=== PATIENT | male | born 1945 | race Caucasian/White ===

== ENCOUNTER 2016-12-29 10:49 | Inpatient (IN) | payer OTHER ==
[~2016-12-29] VITALS: Ht 172.7 cm; Wt 92.5 kg
--- NOTE | ~2016-12-29 | PR ---
[place], [place] PROGRESS NOTE [id number] UNIT #: [id number] ROOM: 511 DOCTOR: BELGICA ORTEGA MD BIRTHDATE: [birth year] DOS: 12/30/2016 PULMONARY FOLLOWUP NOTE SUBJECTIVE: The patient had successful vertebroplasty performed for the patient, T10 vertebral bone yesterday. ____ has been noted decreased. There were symptoms of coughing, sputum expectoration, shortness of breath were also noted improved. OBJECTIVE: VITAL SIGNS: Showed normal temperature, respiratory rate 20, heart rate 70, blood pressure 116/70. The pulse oxygen saturation on 3 liters nasal cannula was 96% saturation recorded. HEENT: Examination shows no acute change. NECK: Supple. CARDIOVASCULAR SYSTEM: S1, S2 is audible. LUNGS: Noted without any wheezing or crackles at the present time. Breath sounds noted moderately decreased bilaterally. ABDOMEN: Soft and nontender. LABORATORY DATA: CBC today; WBC count 13.6, hemoglobin of 13.4, hematocrit 43.7, platelet count 487,000. IMPRESSION: 1. Status post T10 vertebroplasty for acute compression fracture of the patient was noted. 2. 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 3. Chronic hypoxic respiratory failure. 4. Bronchial asthma. PLAN OF TREATMENT: Continuation of the current plan of management at this time. Continue other therapy, plan and management as in progress. Usual care. All other supportive plan of management at this time. The patient could be considered for home discharge for this patient whenever it is necessary from Pulmonary standpoint. The patient will keep his previous outpatient followup appointment. Other usual plan of management. [place], [place] PROGRESS NOTE NAME: MARY MACIAS UNIT #: [id number] ROOM: 511 DOCTOR: BELGICA ORTEGA MD BIRTHDATE: [birth year] BELGICA ZUNIGA MD CM:PNTRANS [id number] BELGICA MASON MD 01/01/17 2227 interface
--- NOTE | ~2016-12-29 | CON ---
[place], [place] REPORT OF CONSULTATION NAME: MARY MACIAS [facility] #: [id number] UNIT #: [id number] ROOM: 511 DOCTOR: EFRAIN MASON MDBELGICA BIRTHDATE: [birth year] DOS: 12/30/2016 REASON FOR CONSULTATION: Assess the patient for the chest pain with recurrent compression fracture of the spine and shortness of breath. HISTORY OF PRESENT ILLNESS: This is a 71-year-old white male known to me with past history of chronic long-term prednisone use of 50 mg daily. The patient has been known with history of uncomplicated moderate persistent bronchial asthma as well as progressive massive pulmonary fibrosis related to silicosis of the lung. He has been noted in his usual state of health. The patient stated that he has developed shortness of breath after trying to get off the chair when he felt excruciating pain in the back. The pain was described to be radiating to the front, moderate to severe in intensity and sharp at times. Later on, pain for this patient noted as dull. The pain has been noted progressive for the patient. He came in to the Emergency Room for further assessment. The patient has been assessed and underwent CT scan of the thoracic spine, which was compression fracture. Other than the thoracic spine no other abnormalities. The patient denies any symptoms of sputum expectoration. He has been noted mild cough without any changes from previously. He denies any symptoms of active wheezing. REVIEW OF SYSTEMS: CONSTITUTIONAL: Fatigue and tiredness noted without symptoms of fever or chills. EYES: Denies any burning, redness, or tenderness. EAR, NOSE, THROAT: Denies sore throat, hoarseness, otalgia, postnasal drainage. CARDIOVASCULAR: Denies anginal pain, edema or pain of the lower extremities. GASTROINTESTINAL: Dysphagia, nausea, vomiting, diarrhea, abdominal pain, hematemesis, melena. History of chronic obesity for the patient. GENITOURINARY: The patient denies any symptoms of dysuria, suprapubic pain, or hematuria. SKIN: Bruising of the skin was noted intermittently related to the use of the prednisone, which is a chronic finding without any abnormal lesions or rashes. MUSCULOSKELETAL: Denies acute joint pain, redness, or tenderness. CENTRAL NERVOUS SYSTEM: Denies dizziness, headache, diplopia, syncopal episodes or focal neurologic deficit. Remaining systems were reviewed with the patient, they were noted all negative. PAST MEDICAL HISTORY: 1. 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 2. History of gastroesophageal reflux. 3. Obesity. 4. Type 2 diabetes mellitus. 5. Essential hypertension. 6. Congestive heart failure, diastolic dysfunction. 7. History of coronary artery disease. 8. Uncomplicated bpjvkhio-gz-hdvbnz persistent bronchial asthma. 9. Chronic hypoxic respiratory failure as well. 10. Chronic prednisone dependency. [place], [place] REPORT OF CONSULTATION NAME: MARY MACISA UNIT #: [id number] ROOM: 511 DOCTOR: EFRAIN MASON MD,BELGICA BIRTHDATE: [birth year] PAST SURGICAL HISTORY: 1. Noted as a fusion of the neck. 2. Carpel tunnel surgery. 3. Bilateral cataract extraction. 4. VATS procedure, patient has had thoracotomy of the left lung in 2008 in [facility], [place]. SOCIAL HISTORY: The patient has been noted with past tobacco use at the age of [age] years old, 1 pack of cigarettes per day that was used for the patient only for about 2-3 years. He is . He lives at home. 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 He does have one child. FAMILY HISTORY: The patient's father at 71 years old from complication of stroke. The mother at age of 6969 years old from complication of liver disease. MEDICATIONS: The current administered medications noted use of Aldactone, Lovenox for DVT prophylaxis, Protonix, metoprolol tartrate, Dulera, Lipitor, Demadex, potassium chloride, Neurontin, Xanax, prednisone 15 mg daily and other p.r.n. medications. DRUG ALLERGIES: The patient was noted as no known drug allergies. PHYSICAL EXAMINATION: GENERAL: A 71-year-old white male who has been noted currently awake and alert without any distress. VITAL SIGNS: Height of 5 feet 8 inches, weight of 204 pounds, BMI 31. Vital signs show a normal temperature, respiratory rate 18-20, heart rate of 72-65, blood pressure 140/84-128/73. Pulse oxygen saturation of the patient recorded on 4 liters nasal cannula 94% saturation. HEENT: Finding of chronic prednisone use with pierre facies. Head was atraumatic. Eyes nonicterus. Oral mucosa was moist. NECK: Supple. CARDIOVASCULAR: S1, S2 audible. LUNGS: The patient was noted with pknz-nf-vhtkefut decreased breath sounds without any wheezing, questionable crackles present at the lungs bilaterally. ABDOMEN: Soft, nontender. EXTREMITIES: Shows chronic obesity. LABORATORY DATA: CBC of the patient of 12/29/2016, WBC count 18.5, hemoglobin 13.3, hematocrit 41.9, platelet count of 507,000. The PT/INR was noted normal on 12/29/2016. CMP: Glucose 127, BUN and creatinine was normal. Glucose 146. PT/PTT repeated again this morning was normal. CMP of the patient, normal. BUN and creatinine again noted this morning. CBC: WBC count 14.5, hemoglobin 12.2, hematocrit 39.0, platelet count was 470,000. IMPRESSION: 1. The patient who has been currently noted with past history of chronic [place], [place] REPORT OF CONSULTATION NAME: MARY MACIAS UNIT #: [id number] ROOM: [facility] DOCTOR: EFRAIN MASON MD,[facility] BIRTHDATE: [birth year] hypoxic respiratory failure with advanced disease related to progressive pulmonary fibrosis related to silicosis, which has been proven with the biopsy as well. 2. Chronic prednisone use. 3. Compression fracture was described of the thoracic spine involving in this patient at the level of T10 was described most likely the reason of current pain. The compression fracture noted atraumatic for this patient related to chronic prednisone dependency. 4. The patient with history of uncomplicated moderate persistent bronchial asthma as well. 5. History of general anxiety disorder, gastroesophageal reflux, history of congestive heart failure with the diastolic dysfunction. 6. Bone mineral weight loss of the patient related to the corticosteroids, which has been treated with the medications. Further medical management of bone loss on the patient with intravenous infusion of medications every 6 months as well as use of calcium and vitamin D supplements. PLAN OF TREATMENT: Continue the pain management. The patient has been scheduled for the MRI for the patient to be done today for further assessment and possible consideration of kyphoplasty. In the meantime, other previous treatment to be continued as well. The patient is in progress. Other supportive therapy, plan and management as well. Usual treatments. All other care. Further change in treatment for the patient will be ordered based on the progression of the illness at this time. No changes in his usual home medications of bronchial asthma needs to be done. Thanks for allowing me to participate in the care of this patient. BELGICA ZUNIGA MD CM:CONSTR:REPORT OF CONSULTATION 1021 12/31/16 0007 interface
--- NOTE | ~2016-12-29 | PR ---
[place], [place] PROGRESS NOTE NAME: MARY MACIAS [facility] #: [id number] UNIT #: [id number] ROOM: 511 DOCTOR: EFRAIN MASON MD,BELGICA BIRTHDATE: [birth year] DOS: 12/31/2016 PULMONARY PROGRESS NOTE SUBJECTIVE: He has been still noted a pain in the back. The patient has x-rays of the thoracic spine done yesterday as well as MRI of the thoracic spine completed yesterday as well. OBJECTIVE: VITAL SIGNS: Was noted with a normal temperature, respiratory rate 20, heart rate 66, blood pressure 112/60. Intake for the patient is 1200 mL approximately, output 2500 mL approximately noted. Pulse oxygen saturation on 3 L nasal cannula 96% saturation. HEENT: Chronic obesity. NECK: Supple. CARDIOVASCULAR: S1 and S2 is audible. LUNGS: The patient was noted without any wheezing or crackles. Breath sounds noted mildly decreased bilaterally. ABDOMEN: Soft, nontender. LABORATORY DATA: CBC today, WBC count 15.2, hemoglobin 12.6, hematocrit 40.4, platelet count 455,000. MRI of the thoracic spine for the patient that was done on 12/30/2016, for the patient was described findings of acute compression fracture for the patient, moderate degree involving the T10 vertebral bone with marrow edema. Zjal-jv-tirabcvy stenosis of the T9-T10 spaces and moderate stenosis of the T10-T11 spaces was also described. Chronic mild endplate compression fracture of the patient was described of L1 and L2. IMPRESSION: 1. The patient with the chest pain. The patient has had an acute atraumatic compression fracture of T6 vertebral bone were noted with other compression fractures at multilevel thoracic spine. Some of the abnormalities were also described for the patient in the thoracic and the lumbar spine area for the patient involving the disk and the vertebral bones. 2. History of advanced silicosis of lungs with progressive massive pulmonary fibrosis of the patient's findings and other problems, which is known previously. 3. Chronic steroid dependency. PLAN OF TREATMENT: Continue with the current plan of management. The patient has been currently planned for possible kyphoplasty with the patient's acute compression fracture of the thoracic spine. In the meantime, continue with the patient's current other previous treatment, plan of management, usual care. Supportive care, other therapy, plan of management. Usual treatments. [place], [place] PROGRESS NOTE NAME: MARY MACIAS UNIT #: [id number] ROOM: 511 DOCTOR: BELGICA ORTEGA MD BIRTHDATE: [birth year] BELGICA ZUNIGA MD CM:PNTRANS [id number] BELGICA MASON MD 12/31/16 1241 interface
[~2016-12-29 10:49] MED LIST: ADVAIR HFA 115/1 AER INH; ALBUTEROL2.5 MG/0.5 INH; ALBUTEROL4 MG INH; ALDACTONE25 M1 PO; ALPRAZOLAM0.25 M2 PO; ATIVAN0.5 MG PO; ATORVASTATIN CA40 M1 PO; BAYER ASPIRIN C81 MG PO; CALCIUM 600 +1 EAC2 PO; COMBIVENT RESPIM4 GM INH; DELTASONE1 MG PO; DELTASONE20 M1 PO; DOXYCYCLINE100 MG PO; DYMISTA NASAL S23 GM NAS; FERROUS GLUCON324 M1 PO; FLUTICASON0.05 MG/AC NAS; IRON90 MG PO; LASIX40 MG PO; LEVAQUIN750 M1 PO; LOTRIMIN 1%15 GM PO; Lopressor25 MG PO; MIRTAZAPINE15 M2 PO; MONTELUKAST SOD10 MG PO; NEURONTIN300 MG PO; NEURONTIN600 MG PO; NORCO 5-325 TA1 EACH PO; OMEPRAZOLE20 M2 PO; PANTOPRAZOLE SO40 MG PO; PERCOCET 325 MG1 TA2 PO; PERCOCET 325 MG1 TA3 PO; PLAVIX75 M1 PO; POTASSIUM CHLO20 ME3 PO; PREDNISONE10 M1 PO; PREDNISONE10 MG PO; PROLIA60 MG/M1 SC; PROPRANOLOL HCL40 M1 PO; PROVENTIL0.09 MG/A1 INH; SINGULAIR10 M1 PO; STIOLTO RESPIMAT4 GM IH; TORSEMIDE20 MG PO; VITAMIN C WITH500 M1 PO
[2016-12-29 10:51] VITALS: BP 150/98
[2016-12-29 11:14] LABS: HEMATOCRIT 41.9 % (42.0-52.0); HEMOGLOBIN 13.3 g/dl (14.0-18.0); MEAN CELL VOLUME 76.6 fl (80.0-94.0); MEAN CORPUSCULAR HGB 24.3 pg (27.0-31.0); MEAN CORPUSCULAR HGB CONC 31.7 g/dl (33.0-37.0); MEAN PLATELET VOLUME 9.1 fl (9.6-12.3); PLATELET COUNT AUTOMATED 507 10*3/uL (130-400); RED BLOOD COUNT 5.47 10*6/uL (4.50-5.90); RED CELL DISTRI WIDTH 19.1 % (0-14.5); WHITE BLOOD COUNT 18.5 10*3/uL (4.8-10.8)
[2016-12-29 11:21] LABS: INTERNATIONAL NORM RATIO 1.1 (2.0-3.5); PROTHROMBIN TIME 11.5 SECONDS (9.0-12.4)
[2016-12-29] MEDS ORDERED: VENTOLIN H0.09 MG/AC INH (11:24)
[2016-12-29] MEDS ORDERED: CALCIUM 600 +1 EA10 PO (11:25)
[2016-12-29 11:32] LABS: LYMPHOCYTE # 1.1 10*3/uL (1.3-4.4); MONOCYTE # 2.4 10*3/uL (0.1-1.0); MYELOCYTES 1 % (0-0); NEUTROPHIL # 14.8 10*3/uL (2.3-7.9); NEUTROPHILS 80 % (47-73); TOTAL CELLS COUNTED 100 #CELLS
[2016-12-29 11:33] LABS: MICROCYTOSIS SLIGHT; PLATELET SUFFICIENCY HIGH (NORMAL); ROULEAUX SLIGHT; SPHEROCYTES FEW
[2016-12-29] MEDS ORDERED: PROLIA60 MG/M1 SC (11:34)
[2016-12-29 11:35] LABS: ALBUMIN 3.2 gm/dl (3.1-4.5); ALKALINE PHOSPHATASE 146 U/L (45-117); BILIRUBIN, TOTAL 0.3 mg/dl (0.2-1.0); BUN 21 mg/dl (7-24); CARBON DIOXIDE 24 mmol/L (21-32); CHLORIDE 103 mmol/L (98-107); EST GLOM FILT AFRICAN AMERICAN > 60 ml/min; GLUCOSE 127 mg/dL (65-99); POTASSIUM 4.1 mmol/L (3.5-5.1); SGOT/AST 18 IU/L (3-35); SGPT/ALT 28 U/L (12-78); SODIUM 139 mmol/L (136-145); TOTAL PROTEIN 8.3 gm/dL (6.4-8.2)
[2016-12-29 11:36] LABS: TROPONIN I < 0.015 ng/ml (<0.045)
[2016-12-29 11:52] VITALS: BP 134/90
[2016-12-29 13:44] VITALS: BP 124/76
[2016-12-29 15:16] VITALS: BP 110/77
[2016-12-29 16:26] VITALS: BP 127/79
[2016-12-29] MEDS ORDERED: PREDNISONE5 MG PO (16:49)
[2016-12-29 20:00] VITALS: BP 148/84
[2016-12-30] VITALS: BP 128/73
[2016-12-30 06:28] LABS: HEMOGLOBIN 12.2 g/dl (14.0-18.0); MEAN CELL VOLUME 78.2 fl (80.0-94.0); MEAN CORPUSCULAR HGB 24.4 pg (27.0-31.0); MEAN CORPUSCULAR HGB CONC 31.3 g/dl (33.0-37.0); MEAN PLATELET VOLUME 9.7 fl (9.6-12.3); PLATELET COUNT AUTOMATED 470 10*3/uL (130-400); RED BLOOD COUNT 4.99 10*6/uL (4.50-5.90); RED CELL DISTRI WIDTH 19.1 % (0-14.5); WHITE BLOOD COUNT 14.5 10*3/uL (4.8-10.8)
[2016-12-30 06:56] LABS: ALBUMIN 2.7 gm/dl (3.1-4.5); ALKALINE PHOSPHATASE 112 U/L (45-117); BILIRUBIN, TOTAL 0.3 mg/dl (0.2-1.0); BUN 20 mg/dl (7-24); CARBON DIOXIDE 27 mmol/L (21-32); CHLORIDE 107 mmol/L (98-107); CHOLESTEROL 179 mg/dL (<200); EST GLOM FILT AFRICAN AMERICAN > 60 ml/min; GLUCOSE 101 mg/dL (65-99); HDL CHOLESTEROL 49 mg/dl (40-60); LDL CHOLESTEROL 108 mg/dL (9-159); MAGNESIUM 2.1 mg/dL (1.5-2.1); POTASSIUM 4.5 mmol/L (3.5-5.1); SGOT/AST 15 IU/L (3-35); SGPT/ALT 22 U/L (12-78); SODIUM 143 mmol/L (136-145); TOTAL PROTEIN 7.1 gm/dL (6.4-8.2); TRIGLYCERIDES 112 mg/dl (<150); VLDL CHOLESTEROL 22 mg/dL (6-40)
[2016-12-30 06:59] LABS: INTERNATIONAL NORM RATIO 1.1 (2.0-3.5); PROTHROMBIN TIME 11.6 SECONDS (9.0-12.4)
[2016-12-30 07:08] LABS: HYPOCHROMIA SLIGHT; LYMPHOCYTE # 1.2 10*3/uL (1.3-4.4); MICROCYTOSIS SLIGHT; MONOCYTE # 1.7 10*3/uL (0.1-1.0); MYELOCYTES 1 % (0-0); NEUTROPHIL # 11.5 10*3/uL (2.3-7.9); NEUTROPHILS 79 % (47-73); PLATELET SUFFICIENCY HIGH (NORMAL); TOTAL CELLS COUNTED 100 #CELLS
[2016-12-30 07:09] LABS: FREE T4 1.14 ng/dl (0.76-1.46); ROULEAUX SLIGHT
[2016-12-30 07:36] LABS: HEMOGLOBIN A1c 5.9 % (4.8-5.6)
[2016-12-30 07:40] LABS: VITAMIN D, 25-HYDROXY 25.3 ng/mL (30-100)
[2016-12-30 07:41] LABS: FOLIC ACID 5.56 ng/mL (>5.38)
[2016-12-30 08:00] VITALS: BP 126/70
[2016-12-30 12:00] VITALS: BP 114/66
[2016-12-30 16:00] VITALS: BP 121/78
[2016-12-30 20:00] VITALS: BP 149/95
[2016-12-31] VITALS (15 sets, daily range): BP systolic 112–162; BP diastolic 57–100
[2016-12-31 06:43] LABS: HEMATOCRIT 40.4 % (42.0-52.0); HEMOGLOBIN 12.6 g/dl (14.0-18.0); MEAN CELL VOLUME 77.2 fl (80.0-94.0); MEAN CORPUSCULAR HGB 24.1 pg (27.0-31.0); MEAN CORPUSCULAR HGB CONC 31.2 g/dl (33.0-37.0); MEAN PLATELET VOLUME 9.2 fl (9.6-12.3); PLATELET COUNT AUTOMATED 455 10*3/uL (130-400); RED BLOOD COUNT 5.23 10*6/uL (4.50-5.90); RED CELL DISTRI WIDTH 19.4 % (0-14.5); WHITE BLOOD COUNT 15.2 10*3/uL (4.8-10.8)
[2016-12-31 07:52] LABS: ATYPICAL LYMPHS 3 % (0-0); LYMPHOCYTE # 2.4 10*3/uL (1.3-4.4); MICROCYTOSIS SLIGHT; MONOCYTE # 1.7 10*3/uL (0.1-1.0); MYELOCYTES 2 % (0-0); NEUTROPHIL # 10.8 10*3/uL (2.3-7.9); NEUTROPHILS 71 % (47-73); PLATELET SUFFICIENCY HIGH (NORMAL); ROULEAUX MODERATE; SPHEROCYTES RARE; TOTAL CELLS COUNTED 100 #CELLS
[2016-12-31 10:33] LABS: BILIRUBIN NEGATIVE (NEGATIVE); BLOOD TRACE-INTACT (NEGATIVE); CLARITY CLEAR (CLEAR); COLOR YELLOW (YELLOW); GLUCOSE NEGATIVE (NEGATIVE); KETONE NEGATIVE (NEGATIVE); LEUKO ESTERASE NEGATIVE (NEGATIVE); NITRITE NEGATIVE (NEGATIVE); PROTEIN NEGATIVE (NEGATIVE); SPECIFIC GRAVITY 1.015 (1.005-1.030)
[2016-12-31 10:41] LABS: BACTERIA TRACE
[2017-01-01] VITALS: BP 164/86
[2017-01-01 06:36] LABS: BASO # 0.1 10*3/uL (0.0-0.1); BASO % 0.4 % (0.0-1.0); EOS % 0.2 % (1.0-4.0); HEMATOCRIT 43.7 % (42.0-52.0); HEMOGLOBIN 13.4 g/dl (14.0-18.0); IG # 0.3 10*3/uL (0.0-0.1); LYMPH # 1.7 10*3/uL (1.3-4.4); LYMPH % 12.8 % (27.0-41.0); MEAN CORPUSCULAR HGB 24.2 pg (27.0-31.0); MEAN CORPUSCULAR HGB CONC 30.7 g/dl (33.0-37.0); MEAN PLATELET VOLUME 9.4 fl (9.6-12.3); MONO # 1.2 10*3/uL (0.1-1.0); MONO % 8.4 % (3.0-9.0); NEUT # 10.4 10*3/uL (2.3-7.9); NEUT % 76.3 % (47.0-73.0); PLATELET COUNT AUTOMATED 486 10*3/uL (130-400); RED BLOOD COUNT 5.53 10*6/uL (4.50-5.90); RED CELL DISTRI WIDTH 19.4 % (0-14.5); WHITE BLOOD COUNT 13.6 10*3/uL (4.8-10.8)
[2017-01-01 08:00] VITALS: BP 116/70
[2017-01-01] MEDS ORDERED: D-1000 185 MG-11 TAB PO (11:55)
== END 2017-01-01 12:47 | disposition home or self-care (01) | DRG 515 ==
LOC: ED 10:49 → 5E 15:36 → EDHOLD 15:36 → 5E 15:50
PROVIDERS: Emergency Medicine Emergency Medical Services; Internal Medicine; Internal Medicine Hospice and Palliative Medicine
PROC: 0PU43JZ Supplement Thoracic Vertebra with Synthetic Substitute, Percutaneous Approach (ICD-10-PCS; principal; 2016-12-31)
DX: M84.48XA Pathological fracture, other site, initial encounter for fracture (principal); E43 Unspecified severe protein-calorie malnutrition; I27.81 Cor pulmonale (chronic); J84.10 Pulmonary fibrosis, unspecified; J96.11 Chronic respiratory failure with hypoxia; I10 Essential (primary) hypertension; F41.1 Generalized anxiety disorder; J45.909 Unspecified asthma, uncomplicated; M81.0 Age-related osteoporosis without current pathological fracture; E78.5 Hyperlipidemia, unspecified; E66.9 Obesity, unspecified; I25.10 Atherosclerotic heart disease of native coronary artery without angina pectoris; Z95.5 Presence of coronary angioplasty implant and graft; Z98.1 Arthrodesis status; Z98.42 Cataract extraction status, left eye; Z98.41 Cataract extraction status, right eye; Z82.3 Family history of stroke; Z83.79 Family history of other diseases of the digestive system; Z79.51 Long term (current) use of inhaled steroids; Z87.891 Personal history of nicotine dependence; Z79.82 Long term (current) use of aspirin; Z79.1 Long term (current) use of non-steroidal anti-inflammatories (NSAID); Z79.899 Other long term (current) drug therapy; Z68.31 Body mass index [BMI] 31.0-31.9, adult

== ENCOUNTER 2017-04-19 11:45 | Inpatient (IN) | payer OTHER ==
[~2017-04-19] VITALS: Ht 172.7 cm; Wt 90.8 kg
[~2017-04-19 11:45] MED LIST changes: +CALCIUM 600 +1 EA10 PO; +D-1000 185 MG-11 TAB PO; +PREDNISONE5 MG PO; +VENTOLIN H0.09 MG/AC INH
[2017-04-19 11:54] VITALS: BP 113/75
[2017-04-19 12:19] LABS: BASO # 0.1 10*3/uL (0.0-0.1); BASO % 0.4 % (0.0-1.0); EOS # 0.1 10*3/uL (0.0-0.4); EOS % 0.3 % (1.0-4.0); HEMOGLOBIN 13.3 g/dl (14.0-18.0); IG # 0.3 10*3/uL (0.0-0.1); LYMPH # 2.4 10*3/uL (1.3-4.4); MEAN CELL VOLUME 77.2 fl (80.0-94.0); MEAN CORPUSCULAR HGB 24.4 pg (27.0-31.0); MEAN CORPUSCULAR HGB CONC 31.7 g/dl (33.0-37.0); MEAN PLATELET VOLUME 9.4 fl (9.6-12.3); MONO # 1.1 10*3/uL (0.1-1.0); MONO % 6.6 % (3.0-9.0); NEUT # 13.2 10*3/uL (2.3-7.9); NEUT % 77.1 % (47.0-73.0); PLATELET COUNT AUTOMATED 424 10*3/uL (130-400); RED BLOOD COUNT 5.44 10*6/uL (4.50-5.90); RED CELL DISTRI WIDTH 18.9 % (0-14.5); WHITE BLOOD COUNT 17.2 10*3/uL (4.8-10.8)
[2017-04-19 12:27] LABS: INTERNATIONAL NORM RATIO 1.1 (2.0-3.5)
[2017-04-19 12:28] LABS: BILIRUBIN NEGATIVE (NEGATIVE); BLOOD TRACE-INTACT (NEGATIVE); CLARITY CLEAR (CLEAR); COLOR STRAW (YELLOW); GLUCOSE NEGATIVE (NEGATIVE); KETONE NEGATIVE (NEGATIVE); LEUKO ESTERASE NEGATIVE (NEGATIVE); NITRITE NEGATIVE (NEGATIVE); PH 6.5 (5.0-9.0); PROTEIN NEGATIVE (NEGATIVE); SPECIFIC GRAVITY <= 1.005 (1.005-1.030); UROBILINOGEN 0.2 E.U./dl (0.2-1.0)
[2017-04-19 12:34] LABS: EPITHELIAL CELLS 0-2; URINE REFLEX COMMENT NO (NO); WBC 0-2 wbc/hpf (0-5)
[2017-04-19 12:36] LABS: ALBUMIN 2.7 gm/dl (3.1-4.5); ALKALINE PHOSPHATASE 129 U/L (45-117); BILIRUBIN, TOTAL 0.7 mg/dl (0.2-1.0); BUN 15 mg/dl (7-24); CARBON DIOXIDE 22 mmol/L (21-32); CHLORIDE 100 mmol/L (98-107); CPK 15 U/L (39-308); EST GLOM FILT AFRICAN AMERICAN > 60 ml/min; GLUCOSE 138 mg/dL (65-99); MAGNESIUM 1.5 mg/dL (1.5-2.1); SGOT/AST 25 IU/L (3-35); SGPT/ALT 21 U/L (12-78); SODIUM 135 mmol/L (136-145); TOTAL PROTEIN 7.6 gm/dL (6.4-8.2)
[2017-04-19 12:37] LABS: CKMB < 0.5 ng/ml (0.5-3.6); TROPONIN I < 0.015 ng/ml (<0.045)
[2017-04-19 13:38] VITALS: BP 93/61
[2017-04-19 14:26] VITALS: BP 111/69
[2017-04-19 16:00] VITALS: BP 116/67
[2017-04-19 20:00] VITALS: BP 111/63
[2017-04-20] VITALS: BP 105/48
[2017-04-20 06:06] LABS: BASO % 0.1 % (0.0-1.0); HEMATOCRIT 36.2 % (42.0-52.0); IG # 0.3 10*3/uL (0.0-0.1); LYMPH # 1.3 10*3/uL (1.3-4.4); LYMPH % 7.4 % (27.0-41.0); MEAN CELL VOLUME 78.2 fl (80.0-94.0); MEAN CORPUSCULAR HGB 24.2 pg (27.0-31.0); MEAN CORPUSCULAR HGB CONC 30.9 g/dl (33.0-37.0); MEAN PLATELET VOLUME 9.4 fl (9.6-12.3); MONO # 1.2 10*3/uL (0.1-1.0); MONO % 7.1 % (3.0-9.0); NEUT # 14.4 10*3/uL (2.3-7.9); NEUT % 83.9 % (47.0-73.0); PLATELET COUNT AUTOMATED 400 10*3/uL (130-400); RED BLOOD COUNT 4.63 10*6/uL (4.50-5.90); WHITE BLOOD COUNT 17.2 10*3/uL (4.8-10.8)
[2017-04-20 06:08] LABS: HEMOGLOBIN 11.2 g/dl (14.0-18.0)
[2017-04-20 06:40] LABS: BUN 16 mg/dl (7-24); CARBON DIOXIDE 26 mmol/L (21-32); CHLORIDE 104 mmol/L (98-107); EST GLOM FILT AFRICAN AMERICAN > 60 ml/min; GLUCOSE 125 mg/dL (65-99); POTASSIUM 4.4 mmol/L (3.5-5.1); SODIUM 139 mmol/L (136-145)
[2017-04-20 06:45] LABS: THYROID STIM HORMONE (HS) 0.488 uIU/ml (0.358-4.75)
[2017-04-20 08:00] VITALS: BP 112/61
[2017-04-20] MEDS ORDERED: VITAMIN D400 I1 PO (10:20)
[2017-04-20] MEDS ORDERED: DEMADEX20 M1 PO (10:22)
[2017-04-20] MEDS ORDERED: VENTOLIN H0.09 MG/AC INH (10:26)
[2017-04-20] MEDS ORDERED: IROSPAN 24/6 T1 EACH PO (10:28)
[2017-04-20] MEDS ORDERED: IRON160 MG PO (10:30)
[2017-04-20] MEDS ORDERED: COMBIVENT RESPIM4 GM INH (10:58)
[2017-04-20 12:00] VITALS: BP 120/67
[2017-04-20 16:00] VITALS: BP 137/83
[2017-04-20 20:00] VITALS: BP 115/62
[2017-04-21] VITALS: BP 109/67; BP 115/62
[2017-04-21 06:31] LABS: BASO % 0.1 % (0.0-1.0); HEMATOCRIT 37.1 % (42.0-52.0); HEMOGLOBIN 11.6 g/dl (14.0-18.0); IG # 0.2 10*3/uL (0.0-0.1); LYMPH # 0.7 10*3/uL (1.3-4.4); LYMPH % 4.3 % (27.0-41.0); MEAN CELL VOLUME 78.3 fl (80.0-94.0); MEAN CORPUSCULAR HGB 24.5 pg (27.0-31.0); MEAN CORPUSCULAR HGB CONC 31.3 g/dl (33.0-37.0); MEAN PLATELET VOLUME 9.8 fl (9.6-12.3); MONO # 0.8 10*3/uL (0.1-1.0); MONO % 4.7 % (3.0-9.0); NEUT # 14.7 10*3/uL (2.3-7.9); NEUT % 89.7 % (47.0-73.0); PLATELET COUNT AUTOMATED 429 10*3/uL (130-400); RED BLOOD COUNT 4.74 10*6/uL (4.50-5.90); RED CELL DISTRI WIDTH 18.4 % (0-14.5); WHITE BLOOD COUNT 16.4 10*3/uL (4.8-10.8)
[2017-04-21 08:00] VITALS: BP 119/68
[2017-04-21] MEDS ORDERED: LEVAQUIN500 M2 PO (10:08)
[2017-04-21] MEDS ORDERED: PREDNISONE10 MG PO (10:08)
== END 2017-04-21 11:05 | disposition home or self-care (01) | DRG 871 ==
LOC: ED 11:45 → 4E 13:23 → EDHOLD 13:23 → 4E 13:47
PROVIDERS: Emergency Medicine; Family Medicine; Internal Medicine
DX: A41.9 Sepsis, unspecified organism (principal); J18.9 Pneumonia, unspecified organism; E43 Unspecified severe protein-calorie malnutrition; D69.6 Thrombocytopenia, unspecified; I11.0 Hypertensive heart disease with heart failure; I50.9 Heart failure, unspecified; J96.11 Chronic respiratory failure with hypoxia; E87.1 Hypo-osmolality and hyponatremia; I27.81 Cor pulmonale (chronic); J44.1 Chronic obstructive pulmonary disease with (acute) exacerbation; J44.0 Chronic obstructive pulmonary disease with (acute) lower respiratory infection; E11.9 Type 2 diabetes mellitus without complications; J62.8 Pneumoconiosis due to other dust containing silica; M81.0 Age-related osteoporosis without current pathological fracture; E66.8 Other obesity; I25.10 Atherosclerotic heart disease of native coronary artery without angina pectoris; F41.9 Anxiety disorder, unspecified; E78.5 Hyperlipidemia, unspecified; D50.9 Iron deficiency anemia, unspecified; W18.30XA Fall on same level, unspecified, initial encounter; K21.9 Gastro-esophageal reflux disease without esophagitis; Z99.81 Dependence on supplemental oxygen; Y93.89 Activity, other specified; Y92.89 Other specified places as the place of occurrence of the external cause; Y99.8 Other external cause status; Z82.3 Family history of stroke; Z84.89 Family history of other specified conditions; Z79.82 Long term (current) use of aspirin; Z79.899 Other long term (current) drug therapy; Z79.52 Long term (current) use of systemic steroids; Z87.891 Personal history of nicotine dependence

== ENCOUNTER 2017-05-01 16:46 | Inpatient (IN) | payer OTHER ==
[~2017-05-01] VITALS: Ht 172.7 cm; Wt 86.7 kg
--- NOTE | ~2017-05-01 | PR ---
[place], [place] PROGRESS NOTE NAME: MARY MACIAS [facility] #: [id number] UNIT #: [id number] ROOM: 405 DOCTOR: EFRAIN MASON MD,BELGICA BIRTHDATE: [birth year] DOS: 05/09/2017 SUBJECTIVE: The patient has been n.p.o. past midnight for bronchoscopy to be done today. The patient remains awake and alert at this time. The patient denies symptoms of chest pain. Denies any abdominal pain. The anticoagulation the patient noted was placed on hold yesterday for the bronchoscopy done today for the patient's right lower lobe consolidation with cavitation. He does not have symptoms of hemoptysis. TB Gold test of the patient was drawn yesterday as the test was not done on the day for this patient when it was ordered because of the lab could not be sent on that day to the outside lab. OBJECTIVE: VITAL SIGNS: For the patient, which has been recorded showed normal temperature, respiratory rate 20, heart rate of 63, blood pressure 118/65. Intake for this patient was 2.170 liters, output of 4100, negative balance of 1.930 liters. The pulse oxygen saturation of the patient was noted as 96% on 3 liters nasal cannula. HEENT: Moderate obesity. Neck was supple. Head was atraumatic. Eyes nonicterus. NECK: Supple. CARDIOVASCULAR: S1, S2 audible. LUNGS: The patient was noted without any wheeze or crackles at the present time. The breaths are noted mildly decreased bilaterally. ABDOMEN: Soft, nontender. EXTREMITIES: Shows chronic obesity. LABORATORY DATA: CBC on 05/09/2017 showed WBC count 18.9, hemoglobin 13.6, hematocrit 43.6, platelet count 443,000. The segmented neutrophils noted 86% with 10% lymphocytes with differentials. CMP this morning was noted normal BUN and creatinine. IMPRESSION: 1. The patient who has been currently noted with ongoing acute on chronic hypoxic respiratory failure, which is resolving. 2. Consolidation right lower lobe with cavitation, the patient currently treated with broad-spectrum intravenous antibiotics for the gram-positive and gram-negative coverage. 3. History of advanced pulmonary silicosis of the lung as well. 4. Atrial fibrillation noted, currently controlled. PLAN OF TREATMENT: The patient will be continued on current plan of management at this time without any changes. The bronchoscopy was planned to be done today. If any modification to treatment if necessary will be ordered after the bronchoscopy. Continue in the meantime other previous treatment therapy, plan of management. Usual care. [place], [place] PROGRESS NOTE NAME: COLLEENMARY Jose Miguel UNIT #: [id number] ROOM: [facility] DOCTOR: BELGICA ORTEGA MD BIRTHDATE: [birth year] BELGICA ZUNIGA MD CM:PNTRANS [id number] BELGICA MASON MD 05/09/17 1339 interface
--- NOTE | ~2017-05-01 | CON ---
[place], [place] REPORT OF CONSULTATION NAME: MARY MACIAS [facility] #: [id number] UNIT #: [id number] ROOM: 405 DOCTOR: EFRAIN MASON MD,BELGICA BIRTHDATE: [birth year] DOS: 05/02/2017 REASON FOR CONSULTATION: Assess the patient for acute progressive pneumonia. HISTORY OF PRESENT ILLNESS: This is a 71-year-old white male who has been known to me, has been recently hospitalized in this hospital and treated for acute right lower lobe pneumonia. The patient has responded to the treatment while in the hospital and was discharged home on oral Levaquin. The patient has taken the medication as ordered for 8 days. He has reported symptoms of progressive general weakness and fatigue with some chest congestion without any sputum expectoration. Shortness of breath for the patient, which was occurring at rest, worsened with minimal exertion. He was also noted to have significant oxygen desaturation occurring after walking couple of feet at home. He had been getting oxygen supplementation on 5 L nasal cannula, difficulty to maintain his oxygen saturation in the normal range. He was seen in the office yesterday. The patient had a chest x-ray done which showed progressive pneumonia for patient in the right lower lobe. He has been known with history of chronic progressive massive pulmonary fibrosis related to the history of silicosis of the lung and chronic hypoxic respiratory failure as well. The patient was advised for hospitalization. He was agreeable. The patient's hospitalization; was admitted to the hospital yesterday under care of the hospitalist services upon my recommendation for the medical management of current progressive pneumonia with failed outpatient treatment. The patient has been noted partial improvement in the respiratory symptoms from yesterday. Denies any symptoms of chest pain or hemoptysis. REVIEW OF SYSTEMS: CONSTITUTIONAL: Fatigue and tiredness noted without symptoms of fever or chills. EYES: Denies any burning, redness, or tenderness. EARS, NOSE, THROAT SYMPTOMS: Denies sore throat, hoarseness, otalgia, postnasal drainage or epistaxis. CARDIOVASCULAR: Denies anginal pain, edema or pain of the lower extremities. GASTROINTESTINAL: Denies dysphagia, nausea, vomiting, diarrhea, abdominal pain, hematemesis, melena, or hematochezia. SKIN: Noted with bruising of the skin intermittently at time for this patient related to his current medication use. CENTRAL NERVOUS SYSTEM: Generalized weakness and fatigue were noted, symptoms of syncopal episodes, seizures. Remaining systems were reviewed and they were noted all negative. PAST MEDICAL HISTORY: 1. Progressive massive pulmonary fibrosis and diagnosis of silicosis. The patient was established in 2008 with thoracotomy and biopsy of the left lung. 2. History of chronic hypoxic respiratory failure, use of oxygen 4-5 liters nasal cannula. 3. History of obesity. 4. Type 2 diabetes mellitus. 5. Essential hypertension. 6. Congestive heart failure, diastolic dysfunction. [place], [place] REPORT OF CONSULTATION NAME: MARY MACIAS UNIT #: [id number] ROOM: 405 DOCTOR: EFRAIN MASON MD,[facility] BIRTHDATE: [birth year] 7. Coronary artery disease. 8. Uncomplicated severe persistent bronchial asthma. 9. Chronic prednisone use of 15 mg daily. PAST SURGICAL HISTORY: 1. Fusion of the neck for this patient with a metal plate. 2. Carpal tunnel surgery. 3. Bilateral cataract extraction and infiltration. 4. VATS surgery for the patient, left lung in 2008 in [facility]. SOCIAL HISTORY: The patient has been known with tobacco use since age of [age] years old, pack of cigarettes per day that was discontinued approximately in 2013. He is and lives at home. 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 FAMILY HISTORY: The patient's father at age 7171 years old with complication of acute stroke. Mother at 69 years with complication of the liver problem. MEDICATIONS: Listed use of torsemide, Lasix, Plavix, Lipitor, Aldactone, aspirin, potassium chloride, Lovenox for DVT prophylaxis, oral Protonix, metoprolol tartrate, IV Solu-Medrol 60 mg q.8 hours, Neurontin, DuoNeb, Xanax, IV Zosyn, IV vancomycin, and other p.r.n. medications administration. DRUG ALLERGIES: The patient was noted to have no known drug allergies. PHYSICAL EXAMINATION: GENERAL: A 71-year-old white male who has been currently noted resting on side of the bed without any distress. VITAL SIGNS: Height 5 feet 8 inches, weight of 196 pounds, BMI 29.8. Vital signs of the patient which has been recorded shows normal temperature, respiratory rate 16-18, heart 72-59, blood pressure 109/67 - 118/64. Pulse oxygen saturation noted on 5 L nasal cannula in my office yesterday about 91% currently on 4 liters was 92% saturation. HEENT: Moderate obesity. Head was atraumatic. Eyes nonicterus. NECK: Supple. CARDIOVASCULAR: S1, S2 is audible. LUNGS: The patient was noted without any wheezing; noted coarse in the right mid and the lower portion of the lung. ABDOMEN: Soft with mild obesity. EXTREMITIES: The patient shows no edema, clubbing or cyanosis. CENTRAL NERVOUS SYSTEM: Cranial nerves 2-12 intact. No focal deficits. MUSCULOSKELETAL: No acute deformities. SKIN: Shows bruising for the patient of the skin related to previous medication use. LABORATORY DATA: CMP of the patient that was done yesterday on admission was noted with normal BUN and creatinine. Sodium 135, albumin 2.3, remaining CMP normal. CBC of the patient of 05/01, on admission; ____ count [id number], hemoglobin 13.5, hematocrit 42.1, platelet count 416,000. CBC this morning; WBC count [place], [place] REPORT OF CONSULTATION NAME: MARY MACIAS UNIT #: [id number] ROOM: 405 DO[facility] [birth year] 19.1, hemoglobin and hematocrit only mildly decreased with a platelet count elevated at 420,000. BMP this morning, glucose 150, remaining BMP was normal. Chest x-ray of the patient that was done this morning shows persistent area of consolidation noted in the right lower lobe for the patient and possibly the right middle lobe as well. Volume loss changes noted at the right mediastinum secondary to known history of progressive massive pulmonary fibrosis with silicosis findings. IMPRESSION: 1. The patient who has been currently admitted to the hospital noted with progressive acute pneumonia, patient's right lower lobe, not responding to treatment. Chronic prednisone dependency with acute on chronic hypoxic respiratory failure. The organism consideration would be Gram negative with the history of chronic longstanding steroid use with patient as the pseudomonas in the differential diagnosis. 2. Failed outpatient treatment with the use of Levaquin as well. 3. History of chronic hypoxic respiratory failure. 4. History of chronic silicosis, progressive massive pulmonary fibrosis as well. 5. Generalized debility and symptoms related to the current acute infection. 6. History of congestive heart failure, diastolic dysfunction. 7. Acute exacerbation of bronchial asthma. PLAN OF MANAGEMENT: Continue oxygen titrate to maintain saturation ____. Continue current corticosteroid dose for the patient with acute exacerbation of bronchial asthma, but the dose for the patient will be decreased based of progressive reduction of the respiratory symptoms in the next 24 hours and later. Continue current broad spectrum intervenous antibiotics. Monitor culture results of the sputum and the blood for this patient. Based on the blood culture and the sputum culture and improvement radiologically with the pneumonia, with followup, the antibiotic will be deescalated accordingly. Supportive therapy, plan of management and care if any worsening with hypoxia or respiratory failure. The patient's use of the BiPAP will be ordered accordingly. Supportive care, other plan of management at this time. DVT prophylaxis. All of these plan of management as in progress. Usual care. Thanks for allowing me to participate in care of this patient. BELGICA ZUNIGA MD CM:CONSTR:REPORT OF CONSULTATION 1053 05/02/17 1733 interface
--- NOTE | ~2017-05-01 | PR ---
[place], [place] PROGRESS NOTE NAME: MARY MACIAS [facility] #: [id number] UNIT #: [id number] ROOM: 405 DOCTOR: BELGICA ORTEGA MD BIRTHDATE: [birth year] DOS: 05/06/2017 SUBJECTIVE: He developed atrial fibrillation with rapid ventricular response, currently getting IV therapeutic heparin unfractionated as well as other medication was started for the patient with medical management of atrial fibrillation and rapid ventricular response. The patient denies symptoms of chest pain. The shortness breath, cough and the other symptoms have been resolving at this time. He does not have symptoms of hemoptysis. OBJECTIVE: VITAL SIGNS: Normal temperature, respiratory rate 18, heart rate 108-113, atrial fibrillation, blood pressure 121/78-115/69. Intake 1550, output 2550 mL. Pulse ox saturation on 3 liters nasal cannula 97% saturation. HEENT: Showed no acute change. NECK: Supple. CARDIOVASCULAR: S1, S2 audible. LUNGS: Noted without any crackles at the present time. Breaths are noted decreased on the right lung. ABDOMEN: Soft and nontender. LABORATORY DATA: PT, INR, PTT today were noted normal. TSH level noted as normal. CBC today: WBC count 16,000, hemoglobin 12.4, hematocrit 38.8, platelet count 463,000. CMP this morning noted normal BUN and creatinine. IMPRESSION: 1. Acute pneumonia consolidation and cavitation of the lungs with the right lower lobe. The patient currently treated for gram-negative and gram-positive infections. 2. 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 3. Acute on chronic hypoxic respiratory failure. PLAN OF MANAGEMENT: Continuation of current antibiotics, bronchodilators, oxygen supplementation, anticoagulation, medical management of atrial fibrillation and other treatment. The dose of Solu-Medrol at this time will be decreased to Solu-Medrol 40 mg b.i.d. from 60 mg q.8h because the patient's respiratory status continued to improve progressively. Monitor PT and PTT as well. Usual care. [place], [place] PROGRESS NOTE NAME: MARY MACIAS UNIT #: [id number] ROOM: 405 DOCTOR: EBLGICA ORTEGA MD BIRTHDATE: [birth year] BELGICA ZUNIGA MD CM:PNTRANS [id number] BELGICA MASON MD 05/06/17 1200 interface
--- NOTE | ~2017-05-01 | PR ---
[place], [place] PROGRESS NOTE NAME: MARY MACIAS [facility] #: [id number] UNIT #: [id number] ROOM: 405 DOCTOR: BELGICA ORTEGA MD BIRTHDATE: [birth year] DOS: 05/11/2017 PULMONARY FOLLOWUP SUBJECTIVE: The patient has been noted comfortable at this time, has not noted symptoms of coughing, sputum expectoration, chest pain or any abdominal pain. Continue antibiotics, bronchodilators and oxygen supplementation. The patient has not been noted any new acute complaints at this time of assessment. Debility and generalized weakness. The patient continues to resolve progressively. OBJECTIVE: VITAL SIGNS: For the patient, which has been recorded showed the temperature noted as normal. The respiratory rate of the patient recorded as 18, heart rate of 69, blood pressure 101/57. Pulse oxygen saturation noted as 96% on 3 liters cannula. HEENT: No new change. NECK: Supple. CARDIOVASCULAR: S1, S2 audible. LUNGS: Noted without any wheezing or crackles at this time. Breath sounds are noted mildly decreased bilaterally. ABDOMEN: Soft, nontender. LABORATORY DATA: CBC: WBC count 13.9, hemoglobin 12.6, hematocrit 40.1, platelet count 315,000. BMP of the patient was noted as normal BUN and creatinine. IMPRESSION: 1. Acute cavitary pneumonia, currently responding to the treatment progressively at this time in the right lower lobe. 2. History of advanced pulmonary silicosis of the lungs. PLAN OF TREATMENT: Obtain a chest x-ray at this time in the morning and then determine if the patient is antibiotic administration requiring, whether oral or intravenously. In the meantime, continue the patient on previous treatment and plan of management. Usual care. Supportive therapy and other management plan of care. [place], [place] PROGRESS NOTE NAME: MARY MACIAS [facility] #: [id number] UNIT #: [id number] ROOM: 405 DOCTOR: BELGICA ORTEGA MD BIRTHDATE: [birth year] BELGICA ZUNIGA MD CM:PNTRANS [id number] BELGICA MASON MD 05/11/17 6523 interface
--- NOTE | ~2017-05-01 | PR ---
[place], [place] PROGRESS NOTE NAME: MARY MACIAS UNIT #: [id number] ROOM: 405 DOCTOR: ALIZA SILVEIRA MD BIRTHDATE: [birth year] DOS: 05/12/2017 ROOM #: 405. SUBJECTIVE: Mary Macias was seen at his bedside with his in attendance. He is a 71-year-old man with severe lung disease. At one point, he was a transplant candidate, but he states that he is no longer considered eligible for the list. He presented to the hospital on this occasion with overwhelming pneumonia and sepsis. During the hospitalization was found to be in atrial fibrillation with a rapid ventricular response. His heart did convert back to sinus rhythm and he is being managed now with rate control and anticoagulation therapy. The patient did undergo bronchoscopy during this hospitalization and states that his breathing has improved since then. He is still on antibiotic therapies. PHYSICAL EXAMINATION: VITAL SIGNS: Today, his pulse is 80 and regular, blood pressure is 110/64. He is afebrile. NECK: Supple. He has no jugular distention. Carotids are full without bruits. LUNGS: Respirations are unlabored. He has markedly decreased breath sounds bilaterally but no wheezes or crackles are present. He does have expiratory prolongation bilaterally. ABDOMEN: Soft and normoactive. EXTREMITIES: Showed 2+ edema of the ankles bilaterally. LABORATORY DATA: Hemoglobin is 12.5, white count 12,100. Sodium 140, potassium 3.7, BUN 16, creatinine 0.8. IMPRESSION: 1. End-stage lung disease. 2. Superimposed pneumonia with respiratory failure. 3. Paroxysmal atrial fibrillation with rapid ventricular response. The patient has converted to sinus rhythm. 4. History of coronary artery disease. 5. History of hypertension. 6. Pulmonary fibrosis and cor pulmonale. PLAN: The patient will be continued on low-dose metoprolol as well as Xarelto for stroke prophylaxis. No other cardiac workup is planned at this time. He can be discharged to home when cleared by the other services. [facility] and I thank the hospitalist physicians as well as Dr. Bacon for asking our advice regarding the patient's care. [place], [place] PROGRESS NOTE NAME: MARY MACIAS UNIT #: [id number] ROOM: 405 DOCTOR: ALIZA SILVEIRA MD BIRTHDATE: [birth year] ALIZA SILVEIRA MD CM:PNTRANS [id number] ALIZA SILVEIRA MD 05/12/17 1319 interface
--- NOTE | ~2017-05-01 | PR ---
[place], [place] PROGRESS NOTE NAME: MARY MACIAS [facility] #: [id number] UNIT #: [id number] ROOM: 405 DOCTOR: EFRAIN MASON MD,BELGICA BIRTHDATE: [birth year] DOS: 05/10/2017 SUBJECTIVE: He has been continuing1 to show reduction and improvement in respiratory symptoms, continued broad spectrum intervenous antibiotics ____. BAL specimen was obtained yesterday with the bronchoscopy of the right lower lung for consolidation, cavitation. OBJECTIVE: VITAL SIGNS: Normal temperature, respiratory rate 20, heart rate of 88, blood pressure 100/50. Pulse oxygen saturation 3 liters nasal cannula 95% saturation recorded. HEENT: Examination shows no acute change. NECK: Supple. CARDIOVASCULAR: S1, S2 audible. LUNGS: Noted without any wheezing or crackles at the present time. ABDOMEN: Soft, nontender. EXTREMITIES: Shows no edema. LABORATORY DATA: BMP was noted normal today. CBC: WBC count 15.6, remaining CBC was normal. The culture of the bronchial washing, preliminary moderate growth of yeast. The Gram stain of yesterday showed many white blood cells, rare epithelial cells, few budding yeast. IMPRESSION: Acute cavitary pneumonia of the right lower lobe with history of progressive massive pulmonary fibrosis as well. Overall respiratory status continued to resolve. PLAN OF MANAGEMENT: Continuation of bronchodilator, antibiotics. Adjustment of the antibiotics based on the current culture results and to determine the further plan of management. Solu-Medrol has been decreased to 40 mg once a day. BELGICA ZUNIGA MD CM:PNTRANS [phone] BELGICA MASON MD 05/10/17 1600 interface
--- NOTE | ~2017-05-01 | PR ---
[place], [place] PROGRESS NOTE NAME: MARY MACIAS [facility] #: [id number] UNIT #: [id number] ROOM: 405 DOCTOR: EFRAIN MASON MD,BELGICA BIRTHDATE: [birth year] DOS: 05/05/2017 PULMONARY FOLLOWUP SUBJECTIVE: The patient was seen and examined on 05/05/2017. He has been noted reduction of the cough with improvement in the ____ for the patient and physical strength. Denies symptoms of chest pain at the present time. The coughing has been noted with small amount of sputum expectoration. Denies symptoms of abdominal pain. OBJECTIVE: VITAL SIGNS: For the patient, which has been recorded showed the temperature of the patient was noted as normal. The respiratory rate of the patient recorded as 20. The heart rate of the patient was recorded as 65 this morning, blood pressure 132/76. Pulse oxygen saturation of the patient was noted on 3 liters canula 98% saturation. HEENT: Examination shows no new change. NECK: Supple. CARDIOVASCULAR: S1, S2 audible. LUNGS: The patient was noted without any wheeze or crackles at the present time. The crackles in the right lower lung appeared to be decreased. ABDOMEN: Soft, nontender. LABORATORY DATA: CBC done yesterday showed WBC count 24,000, hemoglobin 12.2, hematocrit 37.9, and platelet count 467,000, elevated. CBC this morning; WBC count decreased at 13.6, hemoglobin 11.5, hematocrit 36.8, and platelet count 444,000. The chest x-ray of the patient shows area of consolidation, infiltration noted with central cavitation was visible on the current chest x-ray of consolidation appeared to be decreased as compared to previous chest x-ray. CT scan of the chest from 05/02/2017, was also reviewed for this patient and was noted with cavitary consolidation. The patient was noted ____ that is 5.2 x 4.0 cm in the small right pleural effusion. IMPRESSION: 1. The patient who has been currently noted with acute cavitary pneumonia for this patient consolidation, possibility includes as pneumonia secondary to gram-negative infection as Pseudomonas aeruginosa and gram-positive infection including methicillin-resistant Staphylococcus aureus with Staph aureus to be considered. 2. History of silicosis of the lungs for this patient. The patient was ordered The QuantiFERON-TB Gold test. 3. Acute on chronic hypoxic respiratory failure, secondary to acute pneumonia. PLAN OF TREATMENT: The patient seems to respond clinical treatment, reduction of the corticosteroids and gradual resolution of the pulmonary infiltration mass-like consolidation with cavitation was still noted. Continue current antibiotics. Bronchodilators. Oxygen supplementation to be continued. Acute on chronic hypoxic respiratory failure was also resolving. Continue to titrate oxygen and maintain saturation 92% or greater. [place], [place] PROGRESS NOTE NAME: MARY MACIAS UNIT #: [id number] ROOM: [facility] DOCTOR: BELGICA ORTEGA MD BIRTHDATE: [birth year] BELGICA ZUNIGA MD CM:PNTRANS [phone] BELGICA MASON MD 05/05/17 1256 interface
--- NOTE | ~2017-05-01 | PR ---
[place], [place] PROGRESS NOTE NAME: MARY MACIAS [facility] #: [id number] UNIT #: [id number] ROOM: 405 DOCTOR: BELGICA ORTEGA MD BIRTHDATE: [birth year] DOS: 05/08/2017 SUBJECTIVE: He has been noted to be comfortable at this time. Shortness of breath continues to resolve gradually. Denies symptoms of chest pain or any abdominal pain. He does not have any cough at this time without any sputum expectoration. OBJECTIVE: VITAL SIGNS: For the patient which were recorded shows the temperature noted as normal. The respiratory rate of the patient was recorded as 20, heart rate of 61, blood pressure of 106/61. The pulse oxygen saturation of the patient was recorded as 97% on 3 L nasal cannula. HEENT: Shows no acute change. NECK: Supple. CARDIOVASCULAR: S1, S2 is audible. LUNGS: The patient was noted without any wheeze or crackles at the present time. ABDOMEN: Soft and nontender. EXTREMITIES: Show no edema, clubbing or cyanosis. LABORATORY DATA: The chest x-ray of the patient that was done this morning was personally reviewed. It shows persistent infiltration and consolidation of the right lung, possible partial improvement of the patient would be considered at the present time. CBC this morning, WBC count 17.8, hemoglobin 12.7, hematocrit 41.1, platelet count of 447,000, 85% segmented neutrophils were noted. CMP this morning noted normal BUN and creatinine. Albumin of 2.1. IMPRESSION: Persistent consolidation and cavitation in the right lower lobe for this patient at this time with history of massive pulmonary fibrosis ____ silicosis of the lung. PLAN OF TREATMENT: Bronchoscopy planned for this patient to be done in the morning for further assessment of current consolidation and cavitation. Continuation of bronchodilators. The patient had been ordered TB Gold test, which was canceled for this patient without my knowledge and it will be inquired about that why the test was canceled. In the meantime, continue the patient's other treatment therapy, plan of management and usual care. [place], [place] PROGRESS NOTE NAME: MARY MACIAS [facility] #: [id number] UNIT #: [id number] ROOM: 405 DOCTOR: BELGICA ORTEGA MD BIRTHDATE: [birth year] BELGICA ZUNIGA MD CM:PNTRANS [phone] BELGICA MASON MD 05/08/17 105 interface
--- NOTE | ~2017-05-01 | PR ---
[place], [place] PROGRESS NOTE [facility] [id number] UNIT #: [id number] ROOM: 405 DOCTOR: BELGICA ORTEGA MD BIRTHDATE: [birth year] DOS: 05/12/2017 SUBJECTIVE: He has been noted comfortable at this time without any distress. The patient has been comfortably resting, sitting on the side of the bed. There were no symptoms of shortness breath, cough or wheezing noted. PHYSICAL EXAMINATION: VITAL SIGNS: Normal temperature, respiratory rate 20, heart rate 72, blood pressure 113/62, pulse oxygen saturation on 3 liters cannula 93% saturation. LUNGS: Noted without any wheezing or crackles. ABDOMEN: Soft, nontender. LABORATORY DATA: CBC this morning, WBC count 12.1, hemoglobin 12.5, hematocrit 39.7 with a platelet count that was normal. The BMP of the patient that was done this morning was noted normal BMP. The TB Gold test was noted negative. Chest x-ray of the patient shows persistent area of consolidation in the right mid lung, stable. IMPRESSION: 1. Acute pneumonia, consolidation with cavitation right lower lobe, status post bronchoscopy, normal bacterial isolation was noted with the current bronchial washings. 2. History of ____. 3. Resolving acute on chronic hypoxic respiratory failure. 4. Improving acute exacerbation of bronchial asthma. PLAN OF MANAGEMENT: The patient has been currently ordered IV Rocephin 2 gm daily. Doxycycline 100 mg p.o. b.i.d. was also started, 2 weeks of antibiotic for the patient needs to be arranged. Oral and intravenous prior to discharge with tapering dose of prednisone. Outpatient followup will be established in a week post-discharge to continue and assess monitoring of the current pneumonia progression. CT scan of the chest might be needed for this patient to document the resolution in the next few weeks. Prescription has been written and given to the [employer] case management. Discontinuation of the vancomycin. [place], [place] PROGRESS NOTE NAME: MARY MACIAS UNIT #: [id number] ROOM: 405 DOCTOR: BELGICA ORTEGA MD BIRTHDATE: [birth year] BELGICA ZUNIGA MD CM:PNTRANS 1014 BELGICA MASON MD 05/12/17 1053 interface
--- NOTE | ~2017-05-01 | PROC NOTE ---
[place], [place] PROCEDURE NOTE NAME: MAYR MACIAS [facility] #: [id number] UNIT #: [id number] ROOM: 405 DOCTOR: EFRAIN MASON MD,BELGICA BIRTHDATE: [birth year] DOS: 05/09/2017 PREOPERATIVE DIAGNOSIS: The patient with cavitation consolidation with a large consolidation in the right lower lobe. POSTOPERATIVE DIAGNOSES: 1. The patient has evidence of deposition of the carbon particles in submucosa related to this patient's previous work. 2. There was no evidence of endobronchial lesion. 3. Bronchoalveolar lavage specimen was obtained from the patient from the right lower lobe bronchi without any difficulty or complications. PROCEDURE DESCRIPTION: Informed consent was obtained for the patient. The patient was brought to the OR and placed in supine position. Conscious sedation was administered by the Anesthesia Department. After achieving appropriate sedation, airway introduced into the mouth. Bronchoscope advanced into the airway into laryngeal area. Epiglottis and vocal cords were seen. Bronchoscope advanced to the vocal cord and tracheal lumen. Tracheal lumen was identified. Marcia noted sharp. Right upper, right middle, right lower, left upper, lingular lower lobe bronchi with the patient were all examined. Small amount of secretion present in endobronchial tree suctioned out. All the endobronchial tree was noted patent. The BAL specimen was obtained from the right lower lobe bronchus for this patient, which was sent for all the culture and sensitivity cytology. Procedure was tolerated by the patient without any difficulty. Postoperative findings were discussed with the patient's spouse in detail after the completion of the procedure. Deposition of significant carbon noted in the submucosal area related to past inhalation of carbon during his work in the [employer]. No change in treatment at this time will be recommended after the current bronchoscopy completion. BELGICA ZUNIGA MD CM:PROCNOTE:PROCEDURE NOTE [id number] BELGICA MASON MD
--- NOTE | ~2017-05-01 | PR ---
[place], [place] PROGRESS NOTE [id number] UNIT #: [id number] ROOM: 405 DOCTOR: BELGICA ORTEGA MD BIRTHDATE: [birth year] DOS: 05/07/2017 SUBJECTIVE: The patient has been noted comfortable at this time, sitting and resting, continues to show reduction and improvement of respiratory symptom. Denies symptoms of chest pain or any abdominal pain. OBJECTIVE: VITAL SIGNS: Showed temperature noted as normal, respiratory rate 20, heart rate 58-51, blood pressure 110/68 and 96/64. Pulse oxygen saturation recorded on 3 liters nasal cannula 96% saturation. HEENT: Shows no acute change. NECK: Supple. CARDIOVASCULAR: S1 and S2, audible. LUNGS: Noted with some crackles at the right lower lung. There was no wheezing. ABDOMEN: Soft, nontender. LABORATORY DATA: CMP this morning was noted as normal BUN and creatinine. Vancomycin trough level today was noted 23.5. CBC this morning, WBC count 20.1, hemoglobin 13.7, hematocrit 41.9, and platelet count 453,000. TB Gold test was still noted pending. The echocardiogram which was done with contrast yesterday assessed by Dr. Groves was reported with findings of normal left ventricular ejection fraction of 60% without any significant other problems. IMPRESSION: 1. Currently noted with pneumonia with cavitation consolidation in the right lower lung, currently treated with antibiotics. 2. Mild elevation of the vancomycin trough level as well. 3. History of simple silicosis. 4. Acute exacerbation of bronchial asthma as well. 5. History of chronic nicotine dependence. PLAN OF TREATMENT: Continue antibiotics, bronchodilator. Repeat another chest x-ray in the morning. Continuation of anticoagulation. The patient has medical management of atrial fibrillation as well, which seemed to be noted well controlled today with mild joshua erythema as noted. Other supportive therapy, plan of management and care. Obtain the chest x-ray in the morning to reassess for the progression of the pneumonia. [place], [place] PROGRESS NOTE NAME: MARY MACIAS UNIT #: [id number] ROOM: 405 DOCTOR: BELGICA ORTEGA MD BIRTHDATE: [birth year] BELGICA ZUNIGA MD CM:PNCHAD 1045 BELGICA MASON MD 05/07/17 1220 interface
[~2017-05-01 16:46] MED LIST changes: +DEMADEX20 M1 PO; +IRON160 MG PO; +IROSPAN 24/6 T1 EACH PO; +LEVAQUIN500 M2 PO; +VITAMIN D400 I1 PO
[2017-05-01 16:50] VITALS: BP 118/57
[2017-05-01] MEDS ORDERED: PREDNISONE20 M1 PO (17:11)
[2017-05-01 17:57] LABS: HEMATOCRIT 42.1 % (42.0-52.0); HEMOGLOBIN 13.5 g/dl (14.0-18.0); MEAN CELL VOLUME 76.4 fl (80.0-94.0); MEAN CORPUSCULAR HGB 24.5 pg (27.0-31.0); MEAN CORPUSCULAR HGB CONC 32.1 g/dl (33.0-37.0); MEAN PLATELET VOLUME 8.9 fl (9.6-12.3); PLATELET COUNT AUTOMATED 416 10*3/uL (130-400); RED BLOOD COUNT 5.51 10*6/uL (4.50-5.90); RED CELL DISTRI WIDTH 18.7 % (0-14.5)
[2017-05-01 18:14] LABS: ALBUMIN 2.3 gm/dl (3.1-4.5); ALKALINE PHOSPHATASE 88 U/L (45-117); BILIRUBIN, TOTAL 0.6 mg/dl (0.2-1.0); BUN 10 mg/dl (7-24); CARBON DIOXIDE 25 mmol/L (21-32); CHLORIDE 101 mmol/L (98-107); EST GLOM FILT AFRICAN AMERICAN > 60 ml/min; GLUCOSE 97 mg/dL (65-99); MAGNESIUM 1.8 mg/dL (1.5-2.1); POTASSIUM 4.3 mmol/L (3.5-5.1); SGOT/AST 17 IU/L (3-35); SGPT/ALT 13 U/L (12-78); SODIUM 135 mmol/L (136-145); TOTAL PROTEIN 6.8 gm/dL (6.4-8.2)
[2017-05-01 18:16] LABS: TROPONIN I < 0.015 ng/ml (<0.045)
[2017-05-01 18:29] LABS: LYMPHOCYTE # 1.2 10*3/uL (1.3-4.4); MICROCYTOSIS SLIGHT; MONOCYTE # 1.4 10*3/uL (0.1-1.0); NEUTROPHIL # 21.4 10*3/uL (2.3-7.9); NEUTROPHILS 89 % (47-73); PLATELET SUFFICIENCY HIGH (NORMAL); TOTAL CELLS COUNTED 100 #CELLS
[2017-05-01 18:30] LABS: BURR CELLS FEW; OVALOCYTES FEW
[2017-05-01 18:31] LABS: HYPOCHROMIA SLIGHT
[2017-05-01 20:00] VITALS: BP 102/54
[2017-05-02] VITALS (7 sets, daily range): BP systolic 90–120; BP diastolic 53–67
[2017-05-02 06:30] LABS: HEMATOCRIT 40.2 % (42.0-52.0); HEMOGLOBIN 12.7 g/dl (14.0-18.0); MEAN CELL VOLUME 78.7 fl (80.0-94.0); MEAN CORPUSCULAR HGB 24.9 pg (27.0-31.0); MEAN CORPUSCULAR HGB CONC 31.6 g/dl (33.0-37.0); MEAN PLATELET VOLUME 9.3 fl (9.6-12.3); PLATELET COUNT AUTOMATED 423 10*3/uL (130-400); RED BLOOD COUNT 5.11 10*6/uL (4.50-5.90); RED CELL DISTRI WIDTH 18.7 % (0-14.5); WHITE BLOOD COUNT 19.1 10*3/uL (4.8-10.8)
[2017-05-02 06:48] LABS: BUN 13 mg/dl (7-24); CARBON DIOXIDE 23 mmol/L (21-32); CHLORIDE 103 mmol/L (98-107); CHOLESTEROL 134 mg/dL (<200); EST GLOM FILT AFRICAN AMERICAN > 60 ml/min; GLUCOSE 150 mg/dL (65-99); HDL CHOLESTEROL 40 mg/dl (40-60); LDL CHOLESTEROL 80 mg/dL (9-159); POTASSIUM 4.2 mmol/L (3.5-5.1); SODIUM 136 mmol/L (136-145); TRIGLYCERIDES 71 mg/dl (<150); VLDL CHOLESTEROL 14 mg/dL (6-40)
[2017-05-02 07:27] LABS: ACANTHOCYTES MODERATE; LYMPHOCYTE # 1.5 10*3/uL (1.3-4.4); MICROCYTOSIS SLIGHT; NEUTROPHIL # 17.6 10*3/uL (2.3-7.9); NEUTROPHILS 92 % (47-73); PLATELET SUFFICIENCY HIGH (NORMAL); TOTAL CELLS COUNTED 100 #CELLS
[2017-05-02 08:02] LABS: VITAMIN D, 25-HYDROXY 31.1 ng/mL (30-100)
[2017-05-02 08:03] LABS: FOLIC ACID 9.68 ng/mL (>5.38)
[2017-05-03] VITALS: BP 104/60
[2017-05-03 07:25] LABS: HEMATOCRIT 40.5 % (42.0-52.0); HEMOGLOBIN 12.8 g/dl (14.0-18.0); MEAN CELL VOLUME 77.9 fl (80.0-94.0); MEAN CORPUSCULAR HGB 24.6 pg (27.0-31.0); MEAN CORPUSCULAR HGB CONC 31.6 g/dl (33.0-37.0); PLATELET COUNT AUTOMATED 471 10*3/uL (130-400); RED CELL DISTRI WIDTH 18.6 % (0-14.5)
[2017-05-03 07:49] LABS: BUN 14 mg/dl (7-24); CARBON DIOXIDE 22 mmol/L (21-32); CHLORIDE 105 mmol/L (98-107); EST GLOM FILT AFRICAN AMERICAN > 60 ml/min; GLUCOSE 140 mg/dL (65-99); POTASSIUM 3.6 mmol/L (3.5-5.1); SODIUM 140 mmol/L (136-145)
[2017-05-03 07:57] LABS: HYPOCHROMIA SLIGHT; LYMPHOCYTE # 1.4 10*3/uL (1.3-4.4); MICROCYTOSIS SLIGHT; MONOCYTE # 0.8 10*3/uL (0.1-1.0); NEUTROPHIL # 24.8 10*3/uL (2.3-7.9); NEUTROPHILS 92 % (47-73); OVALOCYTES FEW; PLATELET SUFFICIENCY HIGH (NORMAL); TOTAL CELLS COUNTED 100 #CELLS
[2017-05-03 08:00] VITALS: BP 100/5; BP 100/50
[2017-05-03 12:00] VITALS: BP 110/55
[2017-05-03 14:33] VITALS: BP 108/64
[2017-05-03 16:00] VITALS: BP 107/55
[2017-05-03 20:00] VITALS: BP 94/54
[2017-05-04] VITALS: BP 102/65
[2017-05-04 07:19] LABS: HEMATOCRIT 37.9 % (42.0-52.0); HEMOGLOBIN 12.2 g/dl (14.0-18.0); MEAN CELL VOLUME 76.7 fl (80.0-94.0); MEAN CORPUSCULAR HGB 24.7 pg (27.0-31.0); MEAN CORPUSCULAR HGB CONC 32.2 g/dl (33.0-37.0); PLATELET COUNT AUTOMATED 467 10*3/uL (130-400); RED BLOOD COUNT 4.94 10*6/uL (4.50-5.90); RED CELL DISTRI WIDTH 18.8 % (0-14.5); WHITE BLOOD COUNT 24.1 10*3/uL (4.8-10.8)
[2017-05-04 07:37] LABS: LYMPHOCYTE # 1.4 10*3/uL (1.3-4.4); MONOCYTE # 1.9 10*3/uL (0.1-1.0); NEUTROPHIL # 20.7 10*3/uL (2.3-7.9); NEUTROPHILS 86 % (47-73); TOTAL CELLS COUNTED 100 #CELLS
[2017-05-04 07:38] LABS: HYPOCHROMIA SLIGHT; MICROCYTOSIS SLIGHT; OVALOCYTES FEW; PLATELET SUFFICIENCY HIGH (NORMAL)
[2017-05-04 08:00] VITALS: BP 106/77
[2017-05-04 12:00] VITALS: BP 116/79
[2017-05-04 16:00] VITALS: BP 107/64
[2017-05-04 20:00] VITALS: BP 95/60
[2017-05-05] VITALS: BP 108/61
[2017-05-05 06:20] LABS: HEMATOCRIT 36.8 % (42.0-52.0); HEMOGLOBIN 11.5 g/dl (14.0-18.0); MEAN CELL VOLUME 77.8 fl (80.0-94.0); MEAN CORPUSCULAR HGB 24.3 pg (27.0-31.0); MEAN CORPUSCULAR HGB CONC 31.3 g/dl (33.0-37.0); MEAN PLATELET VOLUME 9.5 fl (9.6-12.3); PLATELET COUNT AUTOMATED 445 10*3/uL (130-400); RED BLOOD COUNT 4.73 10*6/uL (4.50-5.90); RED CELL DISTRI WIDTH 18.6 % (0-14.5); WHITE BLOOD COUNT 13.6 10*3/uL (4.8-10.8)
[2017-05-05 06:49] LABS: LYMPHOCYTE # 0.5 10*3/uL (1.3-4.4); METAMYELOCYTES 1 % (0-0); MONOCYTE # 1.1 10*3/uL (0.1-1.0); MYELOCYTES 3 % (0-0); NEUTROPHIL # 11.4 10*3/uL (2.3-7.9); NEUTROPHILS 84 % (47-73); OVALOCYTES FEW; PLATELET SUFFICIENCY HIGH (NORMAL); TOTAL CELLS COUNTED 100 #CELLS
[2017-05-05 06:50] LABS: BURR CELLS FEW
[2017-05-05 08:00] VITALS: BP 132/76
[2017-05-05 12:00] VITALS: BP 114/64
[2017-05-05 15:58] VITALS: BP 117/69
[2017-05-05 20:00] VITALS: BP 112/71
[2017-05-06] VITALS (9 sets, daily range): BP systolic 90–145; BP diastolic 54–79
[2017-05-06 06:51] LABS: ALBUMIN 2.1 gm/dl (3.1-4.5); ALKALINE PHOSPHATASE 76 U/L (45-117); BILIRUBIN, TOTAL 0.4 mg/dl (0.2-1.0); BUN 18 mg/dl (7-24); CARBON DIOXIDE 27 mmol/L (21-32); CHLORIDE 106 mmol/L (98-107); EST GLOM FILT AFRICAN AMERICAN > 60 ml/min; GLUCOSE 140 mg/dL (65-99); MAGNESIUM 2.1 mg/dL (1.5-2.1); POTASSIUM 4.3 mmol/L (3.5-5.1); SGOT/AST 27 IU/L (3-35); SGPT/ALT 27 U/L (12-78); SODIUM 140 mmol/L (136-145); TOTAL PROTEIN 5.7 gm/dL (6.4-8.2)
[2017-05-06 06:52] LABS: BASO % 0.1 % (0.0-1.0); HEMATOCRIT 38.8 % (42.0-52.0); HEMOGLOBIN 12.4 g/dl (14.0-18.0); IG # 0.2 10*3/uL (0.0-0.1); LYMPH # 1.4 10*3/uL (1.3-4.4); LYMPH % 8.5 % (27.0-41.0); MEAN CELL VOLUME 77.8 fl (80.0-94.0); MEAN CORPUSCULAR HGB 24.8 pg (27.0-31.0); MEAN PLATELET VOLUME 9.3 fl (9.6-12.3); MONO # 1.1 10*3/uL (0.1-1.0); MONO % 6.7 % (3.0-9.0); NEUT # 13.3 10*3/uL (2.3-7.9); NEUT % 83.3 % (47.0-73.0); PLATELET COUNT AUTOMATED 463 10*3/uL (130-400); RED BLOOD COUNT 4.99 10*6/uL (4.50-5.90); RED CELL DISTRI WIDTH 19.1 % (0-14.5)
[2017-05-06 07:15] LABS: INTERNATIONAL NORM RATIO 1.1 (2.0-3.5); PROTHROMBIN TIME 11.6 SECONDS (9.0-12.4)
[2017-05-07] VITALS: BP 96/64
[2017-05-07 07:50] LABS: ALBUMIN 2.1 gm/dl (3.1-4.5); ALKALINE PHOSPHATASE 73 U/L (45-117); BILIRUBIN, TOTAL 0.5 mg/dl (0.2-1.0); BUN 19 mg/dl (7-24); CARBON DIOXIDE 27 mmol/L (21-32); CHLORIDE 105 mmol/L (98-107); EST GLOM FILT AFRICAN AMERICAN > 60 ml/min; GLUCOSE 74 mg/dL (65-99); MAGNESIUM 2.2 mg/dL (1.5-2.1); PHOSPHOROUS 2.8 mg/dL (2.5-4.9); POTASSIUM 4.6 mmol/L (3.5-5.1); SGOT/AST 34 IU/L (3-35); SGPT/ALT 33 U/L (12-78); SODIUM 141 mmol/L (136-145); TOTAL PROTEIN 5.7 gm/dL (6.4-8.2)
[2017-05-07 08:00] VITALS: BP 110/68
[2017-05-07 08:03] LABS: HEMATOCRIT 41.9 % (42.0-52.0); HEMOGLOBIN 13.7 g/dl (14.0-18.0); MEAN CELL VOLUME 77.2 fl (80.0-94.0); MEAN CORPUSCULAR HGB 25.2 pg (27.0-31.0); MEAN CORPUSCULAR HGB CONC 32.7 g/dl (33.0-37.0); MEAN PLATELET VOLUME 9.3 fl (9.6-12.3); PLATELET COUNT AUTOMATED 453 10*3/uL (130-400); RED BLOOD COUNT 5.43 10*6/uL (4.50-5.90); RED CELL DISTRI WIDTH 19.4 % (0-14.5); WHITE BLOOD COUNT 20.1 10*3/uL (4.8-10.8)
[2017-05-07 09:02] LABS: EOSINOPHIL # 0.2 10*3/uL (0-0.4); EOSINOPHILS 1 % (1-4); METAMYELOCYTES 1 % (0-0); MICROCYTOSIS SLIGHT; MONOCYTE # 1.2 10*3/uL (0.1-1.0); NEUTROPHIL # 15.5 10*3/uL (2.3-7.9); NEUTROPHILS 77 % (47-73); PLATELET SUFFICIENCY HIGH (NORMAL); SCHISTOCYTES FEW; TOTAL CELLS COUNTED 100 #CELLS
[2017-05-07 12:00] VITALS: BP 107/59
[2017-05-07 16:00] VITALS: BP 120/60
[2017-05-07 20:00] VITALS: BP 121/73; BP 121/83
[2017-05-08] VITALS: BP 119/68
[2017-05-08 06:28] LABS: HEMATOCRIT 41.1 % (42.0-52.0); HEMOGLOBIN 12.7 g/dl (14.0-18.0); MEAN CELL VOLUME 79.2 fl (80.0-94.0); MEAN CORPUSCULAR HGB 24.5 pg (27.0-31.0); MEAN CORPUSCULAR HGB CONC 30.9 g/dl (33.0-37.0); MEAN PLATELET VOLUME 9.7 fl (9.6-12.3); PLATELET COUNT AUTOMATED 447 10*3/uL (130-400); RED BLOOD COUNT 5.19 10*6/uL (4.50-5.90); WHITE BLOOD COUNT 17.8 10*3/uL (4.8-10.8)
[2017-05-08 06:38] LABS: ALBUMIN 2.1 gm/dl (3.1-4.5); BILIRUBIN, TOTAL 0.4 mg/dl (0.2-1.0); BUN 19 mg/dl (7-24); CARBON DIOXIDE 32 mmol/L (21-32); CHLORIDE 103 mmol/L (98-107); EST GLOM FILT AFRICAN AMERICAN > 60 ml/min; GLUCOSE 99 mg/dL (65-99); POTASSIUM 5.1 mmol/L (3.5-5.1); SGOT/AST 23 IU/L (3-35); SGPT/ALT 30 U/L (12-78); SODIUM 138 mmol/L (136-145); TOTAL PROTEIN 5.7 gm/dL (6.4-8.2)
[2017-05-08 06:39] LABS: ALKALINE PHOSPHATASE 77 U/L (45-117)
[2017-05-08 07:20] LABS: LYMPHOCYTE # 1.4 10*3/uL (1.3-4.4); METAMYELOCYTES 1 % (0-0); MONOCYTE # 0.5 10*3/uL (0.1-1.0); MYELOCYTES 3 % (0-0); NEUTROPHIL # 15.1 10*3/uL (2.3-7.9); NEUTROPHILS 85 % (47-73); TOTAL CELLS COUNTED 100 #CELLS
[2017-05-08 07:21] LABS: ACANTHOCYTES FEW; BURR CELLS FEW; OVALOCYTES FEW; PLATELET SUFFICIENCY HIGH (NORMAL); TOXIC GRANULATION SLIGHT
[2017-05-08 08:00] VITALS: BP 126/61
[2017-05-08 09:46] LABS: INTERNATIONAL NORM RATIO 1.1 (2.0-3.5)
[2017-05-08 10:19] LABS: COL/EPI 108 SECONDS (86-157)
[2017-05-08 12:00] VITALS: BP 114/59
[2017-05-08 16:00] VITALS: BP 124/64
[2017-05-08 20:00] VITALS: BP 113/79
[2017-05-09] VITALS (9 sets, daily range): BP systolic 101–124; BP diastolic 51–77
[2017-05-09 06:42] LABS: HEMATOCRIT 43.6 % (42.0-52.0); HEMOGLOBIN 13.6 g/dl (14.0-18.0); MEAN CELL VOLUME 79.9 fl (80.0-94.0); MEAN CORPUSCULAR HGB 24.9 pg (27.0-31.0); MEAN CORPUSCULAR HGB CONC 31.2 g/dl (33.0-37.0); MEAN PLATELET VOLUME 9.4 fl (9.6-12.3); PLATELET COUNT AUTOMATED 443 10*3/uL (130-400); RED BLOOD COUNT 5.46 10*6/uL (4.50-5.90); RED CELL DISTRI WIDTH 19.7 % (0-14.5); WHITE BLOOD COUNT 18.9 10*3/uL (4.8-10.8)
[2017-05-09 07:12] LABS: ALBUMIN 2.3 gm/dl (3.1-4.5); BUN 19 mg/dl (7-24); CARBON DIOXIDE 32 mmol/L (21-32); CHLORIDE 101 mmol/L (98-107); GLUCOSE 78 mg/dL (65-99)
[2017-05-09 07:16] LABS: BURR CELLS FEW; HYPOCHROMIA SLIGHT; LYMPHOCYTE # 1.9 10*3/uL (1.3-4.4); METAMYELOCYTES 3 % (0-0); MICROCYTOSIS SLIGHT; MONOCYTE # 0.2 10*3/uL (0.1-1.0); NEUTROPHIL # 16.3 10*3/uL (2.3-7.9); NEUTROPHILS 86 % (47-73); OVALOCYTES FEW; PLATELET SUFFICIENCY HIGH (NORMAL); TOTAL CELLS COUNTED 100 #CELLS
[2017-05-09 07:17] LABS: ALKALINE PHOSPHATASE 85 U/L (45-117); BILIRUBIN, TOTAL 0.4 mg/dl (0.2-1.0); EST GLOM FILT AFRICAN AMERICAN > 60 ml/min; SGOT/AST 19 IU/L (3-35); SGPT/ALT 28 U/L (12-78)
[2017-05-09 07:25] LABS: SODIUM 142 mmol/L (136-145)
[2017-05-09 07:29] LABS: POTASSIUM 4.1 mmol/L (3.5-5.1)
[2017-05-10] VITALS (8 sets, daily range): BP systolic 88–114; BP diastolic 46–65
[2017-05-10 05:56] LABS: HEMATOCRIT 44.7 % (42.0-52.0); HEMOGLOBIN 13.8 g/dl (14.0-18.0); MEAN CELL VOLUME 79.8 fl (80.0-94.0); MEAN CORPUSCULAR HGB 24.6 pg (27.0-31.0); MEAN CORPUSCULAR HGB CONC 30.9 g/dl (33.0-37.0); MEAN PLATELET VOLUME 9.1 fl (9.6-12.3); PLATELET COUNT AUTOMATED 371 10*3/uL (130-400); RED CELL DISTRI WIDTH 19.5 % (0-14.5); WHITE BLOOD COUNT 15.6 10*3/uL (4.8-10.8)
[2017-05-10 06:20] LABS: BUN 17 mg/dl (7-24); CARBON DIOXIDE 31 mmol/L (21-32); CHLORIDE 103 mmol/L (98-107); EST GLOM FILT AFRICAN AMERICAN > 60 ml/min; GLUCOSE 76 mg/dL (65-99); SODIUM 141 mmol/L (136-145)
[2017-05-10 06:23] LABS: EOSINOPHIL # 0.2 10*3/uL (0-0.4); EOSINOPHILS 1 % (1-4); HYPOCHROMIA SLIGHT; LYMPHOCYTE # 0.6 10*3/uL (1.3-4.4); MICROCYTOSIS SLIGHT; MONOCYTE # 0.3 10*3/uL (0.1-1.0); MYELOCYTES 2 % (0-0); NEUTROPHIL # 14.2 10*3/uL (2.3-7.9); NEUTROPHILS 91 % (47-73); PLATELET SUFFICIENCY NORMAL (NORMAL); TOTAL CELLS COUNTED 100 #CELLS
[2017-05-10 14:09] LABS: ACID FAST SPEC PROCESSING Concentration (.)
[2017-05-11] VITALS (7 sets, daily range): BP systolic 96–115; BP diastolic 52–74
[2017-05-11 06:50] LABS: HEMOGLOBIN 12.6 g/dl (14.0-18.0); MEAN CELL VOLUME 79.5 fl (80.0-94.0); MEAN CORPUSCULAR HGB CONC 31.5 g/dl (33.0-37.0); MEAN PLATELET VOLUME 8.9 fl (9.6-12.3); PLATELET COUNT AUTOMATED 315 10*3/uL (130-400); RED BLOOD COUNT 5.03 10*6/uL (4.50-5.90); RED CELL DISTRI WIDTH 18.8 % (0-14.5); WHITE BLOOD COUNT 13.9 10*3/uL (4.8-10.8)
[2017-05-11 07:08] LABS: LYMPHOCYTE # 1.1 10*3/uL (1.3-4.4); METAMYELOCYTES 2 % (0-0); MONOCYTE # 0.4 10*3/uL (0.1-1.0); MYELOCYTES 3 % (0-0); NEUTROPHIL # 11.7 10*3/uL (2.3-7.9); NEUTROPHILS 84 % (47-73); TOTAL CELLS COUNTED 100 #CELLS
[2017-05-11 07:09] LABS: HYPOCHROMIA SLIGHT; MICROCYTOSIS SLIGHT; OVALOCYTES FEW; PLATELET SUFFICIENCY NORMAL (NORMAL); TOXIC GRANULATION SLIGHT
[2017-05-11 07:26] LABS: BUN 15 mg/dl (7-24); CARBON DIOXIDE 30 mmol/L (21-32); CHLORIDE 101 mmol/L (98-107); EST GLOM FILT AFRICAN AMERICAN > 60 ml/min; GLUCOSE 72 mg/dL (65-99); POTASSIUM 3.7 mmol/L (3.5-5.1); SODIUM 136 mmol/L (136-145)
[2017-05-11 22:05] LABS: MITOGEN VALUE 3.35 IU/mL (.); NIL VALUE 0.05 IU/mL (.); TB Ag MINUS NIL VALUE <0.00 IU/mL (.); TB Ag VALUE 0.04 IU/mL (.); TB GOLD Negative (Negative)
[2017-05-12 00:20] VITALS: BP 109/61
[2017-05-12 07:06] LABS: HEMATOCRIT 39.7 % (42.0-52.0); HEMOGLOBIN 12.5 g/dl (14.0-18.0); MEAN CELL VOLUME 79.4 fl (80.0-94.0); MEAN CORPUSCULAR HGB CONC 31.5 g/dl (33.0-37.0); MEAN PLATELET VOLUME 9.9 fl (9.6-12.3); PLATELET COUNT AUTOMATED 336 10*3/uL (130-400); RED CELL DISTRI WIDTH 18.8 % (0-14.5); WHITE BLOOD COUNT 12.1 10*3/uL (4.8-10.8)
[2017-05-12 07:31] LABS: EOSINOPHIL # 0.2 10*3/uL (0-0.4); EOSINOPHILS 2 % (1-4); HYPOCHROMIA SLIGHT; LYMPHOCYTE # 0.7 10*3/uL (1.3-4.4); METAMYELOCYTES 2 % (0-0); MICROCYTOSIS SLIGHT; MONOCYTE # 0.6 10*3/uL (0.1-1.0); NEUTROPHIL # 10.3 10*3/uL (2.3-7.9); NEUTROPHILS 85 % (47-73); PLATELET SUFFICIENCY NORMAL (NORMAL); TOTAL CELLS COUNTED 100 #CELLS
[2017-05-12 07:37] LABS: BUN 16 mg/dl (7-24); CARBON DIOXIDE 32 mmol/L (21-32); CHLORIDE 101 mmol/L (98-107); EST GLOM FILT AFRICAN AMERICAN > 60 ml/min; GLUCOSE 69 mg/dL (65-99); POTASSIUM 3.7 mmol/L (3.5-5.1); SODIUM 140 mmol/L (136-145)
[2017-05-12 08:00] VITALS: BP 113/62
[2017-05-12 12:00] VITALS: BP 110/64
[2017-05-12] MEDS ORDERED: CEFTRIAXON2 GM/50 ML IV (12:56)
[2017-05-12] MEDS ORDERED: XARE20MG PO (12:56)
[2017-05-12] MEDS ORDERED: DOXYCYCLINE MO100 M1 PO (12:56)
[2017-05-12] MEDS ORDERED: LOPRESSOR25 MG PO (12:56)
[2017-05-12] MEDS ORDERED: PREDNISONE10 MG PO (12:56)
[2017-05-12] MEDS ORDERED: NYSTATIN100000 U/M PO (14:35)
== END 2017-05-12 16:03 | disposition home health service (06) | DRG 853 ==
LOC: 4E 16:46
PROVIDERS: Hospitalist; Internal Medicine; Internal Medicine Critical Care Medicine; Internal Medicine Hospice and Palliative Medicine; Internal Medicine Nephrology; Student in an Organized Health Care Education/Training Program
PROC: 0B9F8ZX Drainage of Right Lower Lung Lobe, Via Natural or Artificial Opening Endoscopic, Diagnostic (ICD-10-PCS; 2017-05-09)
PROC: 02HV33Z Insertion of Infusion Device into Superior Vena Cava, Percutaneous Approach (ICD-10-PCS; principal; 2017-05-12)
DX: A41.9 Sepsis, unspecified organism (principal); J18.1 Lobar pneumonia, unspecified organism; J96.21 Acute and chronic respiratory failure with hypoxia; E43 Unspecified severe protein-calorie malnutrition; I11.0 Hypertensive heart disease with heart failure; J44.0 Chronic obstructive pulmonary disease with (acute) lower respiratory infection; I27.81 Cor pulmonale (chronic); I50.32 Chronic diastolic (congestive) heart failure; J45.901 Unspecified asthma with (acute) exacerbation; E87.1 Hypo-osmolality and hyponatremia; J44.1 Chronic obstructive pulmonary disease with (acute) exacerbation; I25.10 Atherosclerotic heart disease of native coronary artery without angina pectoris; E66.09 Other obesity due to excess calories; E11.9 Type 2 diabetes mellitus without complications; J84.10 Pulmonary fibrosis, unspecified; E78.2 Mixed hyperlipidemia; I48.0 Paroxysmal atrial fibrillation; F41.9 Anxiety disorder, unspecified; M81.0 Age-related osteoporosis without current pathological fracture; D47.3 Essential (hemorrhagic) thrombocythemia; K13.29 Other disturbances of oral epithelium, including tongue; I25.2 Old myocardial infarction; Z99.81 Dependence on supplemental oxygen; Z87.81 Personal history of (healed) traumatic fracture; Z87.891 Personal history of nicotine dependence; Z82.3 Family history of stroke; Z95.5 Presence of coronary angioplasty implant and graft; Z84.89 Family history of other specified conditions; Z79.82 Long term (current) use of aspirin; Z79.899 Other long term (current) drug therapy; Z68.29 Body mass index [BMI] 29.0-29.9, adult; Z98.42 Cataract extraction status, left eye; Z98.41 Cataract extraction status, right eye

== ENCOUNTER 2017-05-30 22:23 | Inpatient (IN) | payer OTHER ==
[~2017-05-30] VITALS: Ht 173 cm; Wt 90.5 kg
--- NOTE | ~2017-05-30 | PR ---
[place], [place] PROGRESS NOTE NAME: MARY MACIAS [facility] #: [id number] UNIT #: [id number] ROOM: 526 DOCTOR: BELGICA ORTEGA MD BIRTHDATE: [birth year] DOS: 06/02/2017 PULMONARY FOLLOWUP SUBJECTIVE: The patient continued on diuretics, getting ____ every 8 hours. The respiratory symptoms have been resolving. The coughing has been noted significantly improved. Shortness of breath was resolving. There were no symptoms of chest pain. OBJECTIVE: VITAL SIGNS: For the patient which was recorded shows the temperature noted as normal. The respiratory rate of the patient recorded as 16, heart rate of 70. Blood pressure 101/63. HEENT: Examination shows no acute change. NECK: Supple. CARDIOVASCULAR: S1, S2 is audible. LUNGS: The patient was noted without any wheezing or crackles. ABDOMEN: Soft, nontender. LABORATORY DATA: One view chest x-ray portable that was done this morning was reviewed shows continued resolution of the congestive heart failure finding and the infiltration. Underlying chronic silicosis of the lungs was noted. The BMP for the patient that was done this morning showed glucose 123, BUN and creatinine was normal. CBC this morning, WBC count 18.9, hemoglobin of 10.8, hematocrit 33.7, platelet count 328,000. IMPRESSION: 1. The patient with progressive resolution of acute congestive heart failure with edema of lower extremity has been gradually resolving. 2. Resolving acute exacerbation of bronchial asthma, history of chronic nicotine dependency. 3. Acute congestive heart failure with diastolic dysfunction. PLAN OF TREATMENT: Continue the current plan of management for this patient except adjustment in antibiotic was done with continuation of Levaquin as the only antibiotic. Based on the current culture results, discontinue vancomycin and IV Zosyn. Other supportive plan of therapy and care. Usual medical management and other treatments. [place], [place] PROGRESS NOTE NAME: MARY MACIAS UNIT #: [id number] ROOM: 526 DOCTOR: BELGICA ORTEGA MD BIRTHDATE: [birth year] BELGICA ZUNIGA MD CM:PNTRANS [phone] BELGICA MASON MD 06/02/172100 interface
--- NOTE | ~2017-05-30 | CON ---
[place], [place] REPORT OF CONSULTATION NAME: MARY MACIAS [facility] #: [id number] UNIT #: [id number] ROOM: [facility] DOCTOR: EFRAIN MASON MD,BELGICA BIRTHDATE: [birth year] DOS: 05/31/2017 REASON FOR CONSULTATION: The consultation is requested by the hospitalist services for assessment of acute respiratory failure. HISTORY OF PRESENT ILLNESS: A 71-year-old white male who has been known to me from the past with history of massive pulmonary fibrosis related with history of advanced course of the lung, recently treated for the cavitary pneumonia with intravenous antibiotics. The patient presented to the Emergency Room and has been admitted to the hospital this morning, as the patient reported symptoms of panic with increased shortness of breath. The patient stated his symptoms worsened and came into the Emergency Room last night. He has been currently assessed and admitted to the hospital. The patient was started on the BiPAP. The chest x-ray was done on 05/30/2017 shows possibility of congestive heart failure with bilateral pleural fluid and also described finding of consolidation by the radiology services. This morning, the patient stated that he has been feeling better. The shortness of breath has been noted better. He was tolerating the BiPAP. He denied any symptoms of coughing, hemoptysis or any chest pain. REVIEW OF SYSTEMS: CONSTITUTIONAL: Symptoms of fatigue and tiredness reported without symptoms of fever or chills. EYES: Denies any burning, redness or tenderness. EARS, NOSE, AND THROAT SYMPTOMS: No sore throat, hoarseness, otalgia, postnasal drainage. CARDIOVASCULAR: Denies anginal pain, edema or pain of the lower extremities. GASTROINTESTINAL: Denies dysphagia, nausea, vomiting, diarrhea, abdominal pain, hematemesis, melena, or hematochezia. SKIN: Denies rashes or lesions. MUSCULOSKELETAL: Denies any acute joint abnormalities. CENTRAL NERVOUS SYSTEM: General weakness, fatigue was noted. Remaining systems were reviewed, they were noted all negative. PAST MEDICAL HISTORY: 1. Past hospitalization in 04/2017, discharged home. On 05/12/2017 for the medical management of acute on chronic hypoxic respiratory failure and acute cavitary pneumonia. The patient received intravenous antibiotics as an outpatient as well about 14 days prior to discontinuation. 2. 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 3. Chronic hypoxic respiratory failure, use of oxygen 4-5 liters nasal cannula. 4. Dependency and corticosteroid use of prednisone 50 mg daily. 5. Uncomplicated severe persistent history of bronchial asthma. 6. Acute coronary artery disease. 7. History of congestive heart failure, diastolic dysfunction. 8. Essential hypertension. PAST SURGICAL HISTORY: [place], [place] REPORT OF CONSULTATION NAME: MARY MACIAS UNIT #: [id number] ROOM: [facility] DOCTOR: EFRAIN MASON MD,BELGICA BIRTHDATE: [birth year] 1. Fusion of the neck. 2. Carpal tunnel surgery. 3. Bilateral cataract extraction, lens implantation. 4. VATS and biopsy of the left lung in 2008 in [facility]. 5. Therapeutic bronchoscopy in April 2017. SOCIAL HISTORY: The patient has known history of tobacco use since age of [age] years old, pack of cigarettes per day until 2013. There was no history of alcohol or illicit drug use. WORK HISTORY: Noted for 25 years, worked in the [employer] with exposure to silica as a job. He does have one child. FAMILY HISTORY: Father at the age of 7171 years old, complications related to acute stroke. Mother at 69 years with complication of liver problems. CURRENT ADMINISTERED MEDICATIONS: As use of Xarelto, gabapentin, Lipitor, Bumex, IV Solu-Medrol 60 mg every 8 hours, Protonix, DuoNeb, IV vancomycin, Zosyn, Xanax, Levaquin, morphine sulfate and others. DRUG ALLERGIES: No known drug allergies. PHYSICAL EXAMINATION: GENERAL: A 71-year-old white male who has been currently noted to be awake and alert without any distress using the BiPAP, appeared to be comfortable. VITAL SIGNS: The patient's height was recorded by the nursing staff at the time of current admission with the height of 5 feet 8 inches, weight of 203 pounds, BMI of 30.8. HEENT: Shows head was atraumatic. Eyes nonicterus. NECK: Supple. CARDIOVASCULAR: S1, S2 is audible. LUNGS: The patient was noted without any wheezing or crackles at the present time. Breaths are noted generally diminished bilaterally. ABDOMEN: Soft, nontender. EXTREMITIES: Show no edema. LABORATORY DATA: CBC on 05/30/2017, WBC count was noted at 12.9, hemoglobin 11.6, hematocrit 36.8, platelet count 350,000. BMP of 18. Normal BUN and creatinine. The ABG yesterday on 100% nonrebreather mask, pH of 7.44, pCO2 of 32, pO2 of 147. Arterial blood gas, which was done this morning, the BiPAP appeared to be venous gas. Chest x-ray, the patient was noted with chronic abnormalities in the lungs with history of silicosis, area of consolidation on infiltration in the right lower lobe, partially proceed with persistent abnormality, which has been monitored appeared to be persistent. IMPRESSION: 1. The patient who has been currently admitted to the hospital related to possibility of acute congestive heart failure as well as exacerbation of chronic obstructive pulmonary disease. 2. History of progressive massive pulmonary fibrosis. [place], [place] REPORT OF CONSULTATION NAME: MARY MACIAS UNIT #: [id number] ROOM: [facility] DOCTOR: EFRAIN MASON MD,BELGICA BIRTHDATE: [birth year] 3. Infiltration. The patient with cavitation, which has been noted previously without any obvious cavitation this time noted on the current abnormality, right lower lobe. Reassess the patient with a CT scan of the chest, which was pending to be done to rule out persistent abnormalities remains persistent. Additional workup needs to be done to exclude underlying malignancy of the lung in future. 4. Acute on chronic severe hypoxic respiratory failure as well. 5. History of chronic prednisone dependency. 6. Possibility of pneumonia would be considered, appeared to be less likely. PLAN OF MANAGEMENT: Order the arterial blood gas to reassess more accurate ventilatory status and oxygenation. Obtain CT scan of the chest to reassess the current pulmonary abnormalities. Continuation of the diuretic therapy. Definitely to reduce the dose of the corticosteroids of Solu-Medrol. The antibiotics for the patient will be discontinued. The pneumonia is excluded with further appropriate assessment. Await completion of CT scan of the thorax. Other supportive therapy, plan and management as in progress. DVT prophylaxis. Additional changes in the treatment needs to be made with the progression of the illness, the tuberculosis has been excluded with negative TB Gold test as well as the past culture with the bronchoscopy so far have not shown any abdominal bacterial growth. However, the patient was noted high risk of tuberculosis because of the history of silicosis. Usual care, other plan of management and therapies. Thank you for allowing me to participate in the care of this patient. BELGICA ZUNIGA MD CM:CONSTR:REPORT OF CONSULTATION 1347 05/31/17 2232 interface
--- NOTE | ~2017-05-30 | PR ---
[place], [place] PROGRESS NOTE NAME: MARY MACIAS [facility] #: [id number] UNIT #: [id number] ROOM: [facility] DOCTOR: EFRAIN MASON MD,BELGICA BIRTHDATE: [birth year] DOS: 06/01/2017 SUBJECTIVE: He has been noted comfortable at this time, sitting on his bed. With the diuretic therapy, the patient was continued reduction of the edema of the lower extremity noted. Shortness of breath was also improving. This morning as the patient was assessed, he has been using oxygen supplementation with the nasal cannula. The patient does have CTA of the chest completed yesterday. OBJECTIVE: VITAL SIGNS: Showed the temperature noted as normal. Respiratory rate 24, heart rate of 91, blood pressure 101/60. Pulse oxygen saturation recorded on 3 liters nasal cannula 95% saturation. HEENT: Examination shows no acute change. NECK: Supple. CARDIOVASCULAR: S1, S2 audible. LUNGS: Showed moderate reduction in the breath sounds noted bilaterally. Scattered crackles. Only wheezing. ABDOMEN: Soft, nontender. EXTREMITIES: Showed 2+ pitting edema today. Intake for the patient noted 1700 mL, yesterday output was 6000 mL, negative for approximately 4400 mL was recorded. The arterial blood gas this morning, 2 liters nasal cannula, pH of 7.49, pCO2 32, pO2 63. CBC this morning, WBC count 19.7, hemoglobin 10.6, hematocrit 33.3, platelet count 333,000. CMP this morning, glucose noted as normal, BUN and creatinine normal, potassium 3.0. Chest x-ray that was done this morning shows reduction of the previously noted interstitial edema, congestive heart failure and infiltration. CT of the chest does not show any evidence of pulmonary embolism. Review of the CT scan personally was done. From PAC system shows resolution of previously noted acute cavitary pneumonia was noted as compared with the previous CT scan of the chest. The findings of silicosis of lungs noted with some interstitial edema cannot be completely excluded. Patchy infiltration otherwise in the lungs were noted with possibility of acute pneumonia. The patient cannot be completely excluded. IMPRESSION: 1. The patient with acute on chronic hypoxic respiratory failure. 2. The patient with acute congestive heart failure with peripheral edema. The patient with diastolic dysfunction. 3. Advanced silicosis of the lung with progressive massive pulmonary fibrosis. 4. The patient with possibly superimposed acute pneumonia also noted, which has been currently responding to the treatment. PLAN OF TREATMENT: Monitor culture results. Tomorrow, reduce the antibiotic spectrum based on the culture results availability after 72 hours of hospitalization. Other supportive therapy, plan of management, usual care. Additional treatment changes to be done based on progression of the illness. [place], [place] PROGRESS NOTE [facility] [id number] UNIT #: [id number] ROOM: [facility] DOCTOR: EFRAIN MASON MD,BELGICA BIRTHDATE: [birth year] BELGICA ZUNIGA MD CM:OLIVIA [id number] BELGICA MASON MD 06/02/1738 interface
[~2017-05-30 22:23] MED LIST changes: +CEFTRIAXON2 GM/50 ML IV; +DOXYCYCLINE MO100 M1 PO; +LOPRESSOR25 MG PO; +NYSTATIN100000 U/M PO; +PREDNISONE20 M1 PO; +XARE20MG PO
[2017-05-30 22:25] VITALS: BP 112/65
[2017-05-30 22:48] LABS: HEMATOCRIT 36.8 % (42.0-52.0); HEMOGLOBIN 11.6 g/dl (14.0-18.0); MEAN CELL VOLUME 79.3 fl (80.0-94.0); MEAN CORPUSCULAR HGB CONC 31.5 g/dl (33.0-37.0); MEAN PLATELET VOLUME 9.4 fl (9.6-12.3); PLATELET COUNT AUTOMATED 350 10*3/uL (130-400); RED BLOOD COUNT 4.64 10*6/uL (4.50-5.90); RED CELL DISTRI WIDTH 19.1 % (0-14.5); WHITE BLOOD COUNT 12.9 10*3/uL (4.8-10.8)
[2017-05-30 22:55] VITALS: BP 104/62
[2017-05-30 23:00] LABS: INTERNATIONAL NORM RATIO 1.2 (2.0-3.5)
[2017-05-30 23:03] LABS: ABG BASE EXCESS -1.5 mmol/L (-2.0-2.0); ABG HCO3 21.6 mmol/l (22-26); ABG O2 SATURATION 98.7 % (95-97); ARTERIAL BLOOD GAS PH 7.443 (7.35-7.45)
[2017-05-30 23:05] LABS: ALBUMIN 2.1 gm/dl (3.1-4.5); ALKALINE PHOSPHATASE 97 U/L (45-117); BILIRUBIN, DIRECT < 0.1 mg/dL (0.0-0.2); BUN 14 mg/dl (7-24); CHLORIDE 107 mmol/L (98-107); LIPASE 278 U/L (73-393); MAGNESIUM 1.6 mg/dL (1.5-2.1); POTASSIUM 4.2 mmol/L (3.5-5.1); SGOT/AST 17 IU/L (3-35); SGPT/ALT 13 U/L (12-78); SODIUM 139 mmol/L (136-145)
[2017-05-30 23:07] LABS: TROPONIN I < 0.015 ng/ml (<0.045)
[2017-05-30 23:13] LABS: BASOPHILS 1 % (0-1); TOTAL CELLS COUNTED 100 #CELLS
[2017-05-30 23:14] LABS: PLATELET SUFFICIENCY NORMAL (NORMAL)
[2017-05-30 23:15] LABS: OVALOCYTES FEW; POLYCHROMASIA SLIGHT
[2017-05-31] VITALS (8 sets, daily range): BP systolic 97–128; BP diastolic 54–71
[2017-05-31 06:12] LABS: HEMATOCRIT 34.8 % (42.0-52.0); HEMOGLOBIN 10.6 g/dl (14.0-18.0); MEAN CELL VOLUME 80.4 fl (80.0-94.0); MEAN CORPUSCULAR HGB 24.5 pg (27.0-31.0); MEAN CORPUSCULAR HGB CONC 30.5 g/dl (33.0-37.0); MEAN PLATELET VOLUME 9.6 fl (9.6-12.3); PLATELET COUNT AUTOMATED 315 10*3/uL (130-400); RED BLOOD COUNT 4.33 10*6/uL (4.50-5.90); RED CELL DISTRI WIDTH 19.2 % (0-14.5); WHITE BLOOD COUNT 12.8 10*3/uL (4.8-10.8)
[2017-05-31 06:27] LABS: ABG HCO3 20.5 mmol/l (22-26); ABG O2 SATURATION 79.1 % (95-97); ARTERIAL BLOOD GAS PCO2 42.9 mmHg (35-45); ARTERIAL BLOOD GAS PH 7.299 (7.35-7.45); ARTERIAL BLOOD GAS PO2 49.4 mmHg (80-90)
[2017-05-31 06:28] LABS: BUN 13 mg/dl (7-24); CHLORIDE 109 mmol/L (98-107); CREATININE 0.98 mg/dL (0.70-1.30); MAGNESIUM 1.7 mg/dL (1.5-2.1); PHOSPHOROUS 3.3 mg/dL (2.5-4.9); POTASSIUM 4.6 mmol/L (3.5-5.1); SODIUM 138 mmol/L (136-145)
[2017-05-31 06:29] LABS: ABG BASE EXCESS -5.3 mmol/L (-2.0-2.0)
[2017-05-31 06:35] LABS: OVALOCYTES FEW; TOTAL CELLS COUNTED 100 #CELLS
[2017-05-31 06:36] LABS: PLATELET SUFFICIENCY NORMAL (NORMAL)
[2017-05-31 06:50] LABS: ACT PARTIAL THROMBO TIME 25.1 SECONDS (20.8-31.5); INTERNATIONAL NORM RATIO 1.2 (2.0-3.5)
[2017-06-01] VITALS: BP 123/80
[2017-06-01 04:00] VITALS: BP 123/75
[2017-06-01 05:49] LABS: HEMATOCRIT 33.3 % (42.0-52.0); HEMOGLOBIN 10.6 g/dl (14.0-18.0); MEAN CORPUSCULAR HGB 24.8 pg (27.0-31.0); MEAN CORPUSCULAR HGB CONC 31.8 g/dl (33.0-37.0); MEAN PLATELET VOLUME 9.9 fl (9.6-12.3); PLATELET COUNT AUTOMATED 333 10*3/uL (130-400); RED BLOOD COUNT 4.27 10*6/uL (4.50-5.90); WHITE BLOOD COUNT 19.7 10*3/uL (4.8-10.8)
[2017-06-01 06:02] LABS: ALBUMIN 2.5 gm/dl (3.1-4.5); BUN 17 mg/dl (7-24); CHLORIDE 103 mmol/L (98-107); CREATININE 1.08 mg/dL (0.70-1.30); MAGNESIUM 2.1 mg/dL (1.5-2.1); SGOT/AST 17 IU/L (3-35); SGPT/ALT 14 U/L (12-78); SODIUM 141 mmol/L (136-145)
[2017-06-01 06:04] LABS: ALKALINE PHOSPHATASE 70 U/L (45-117); PHOSPHOROUS 3.1 mg/dL (2.5-4.9); TOTAL PROTEIN 6.5 gm/dL (6.4-8.2)
[2017-06-01 06:32] LABS: PLATELET SUFFICIENCY NORMAL (NORMAL); TOTAL CELLS COUNTED 100 #CELLS
[2017-06-01 08:00] VITALS: BP 105/68
[2017-06-01 08:08] LABS: ABG BASE EXCESS 1.9 mmol/L (-2.0-2.0); ABG HCO3 24.6 mmol/l (22-26); ABG O2 SATURATION 94.1 % (95-97); ARTERIAL BLOOD GAS PCO2 32.4 mmHg (35-45); ARTERIAL BLOOD GAS PH 7.491 (7.35-7.45)
[2017-06-01 12:00] VITALS: BP 101/60
[2017-06-01 16:00] VITALS: BP 111/63
[2017-06-01 20:00] VITALS: BP 107/71
[2017-06-02] VITALS: BP 118/70
[2017-06-02 06:44] LABS: HEMATOCRIT 33.7 % (42.0-52.0); HEMOGLOBIN 10.8 g/dl (14.0-18.0); MEAN CELL VOLUME 79.3 fl (80.0-94.0); MEAN CORPUSCULAR HGB 25.4 pg (27.0-31.0); MEAN PLATELET VOLUME 9.7 fl (9.6-12.3); PLATELET COUNT AUTOMATED 328 10*3/uL (130-400); RED BLOOD COUNT 4.25 10*6/uL (4.50-5.90); RED CELL DISTRI WIDTH 19.4 % (0-14.5); WHITE BLOOD COUNT 18.9 10*3/uL (4.8-10.8)
[2017-06-02 06:56] LABS: BUN 19 mg/dl (7-24); CHLORIDE 105 mmol/L (98-107); CREATININE 1.11 mg/dL (0.70-1.30); MAGNESIUM 2.1 mg/dL (1.5-2.1); PHOSPHOROUS 2.4 mg/dL (2.5-4.9); POTASSIUM 3.7 mmol/L (3.5-5.1); SODIUM 144 mmol/L (136-145)
[2017-06-02 08:00] VITALS: BP 101/63
[2017-06-02 08:31] LABS: TOTAL CELLS COUNTED 100 #CELLS
[2017-06-02 08:32] LABS: MICROCYTOSIS SLIGHT; OVALOCYTES FEW; PLATELET SUFFICIENCY NORMAL (NORMAL)
[2017-06-02 12:00] VITALS: BP 104/65
[2017-06-02 15:56] VITALS: BP 124/73
[2017-06-02 20:00] VITALS: BP 108/62
[2017-06-03] VITALS: BP 124/73
[2017-06-03 04:00] VITALS: BP 128/71
[2017-06-03 06:34] LABS: BUN 21 mg/dl (7-24); CHLORIDE 106 mmol/L (98-107); CREATININE 0.92 mg/dL (0.70-1.30); POTASSIUM 3.5 mmol/L (3.5-5.1); SODIUM 143 mmol/L (136-145)
[2017-06-03 08:00] VITALS: BP 103/75
[2017-06-03 12:00] VITALS: BP 110/62
[2017-06-03 16:00] VITALS: BP 116/72
[2017-06-03 20:00] VITALS: BP 120/70
[2017-06-04] VITALS: BP 125/76
[2017-06-04 06:04] LABS: HEMATOCRIT 35.4 % (42.0-52.0); HEMOGLOBIN 11.1 g/dl (14.0-18.0); MEAN CORPUSCULAR HGB 25.4 pg (27.0-31.0); MEAN CORPUSCULAR HGB CONC 31.4 g/dl (33.0-37.0); MEAN PLATELET VOLUME 9.2 fl (9.6-12.3); PLATELET COUNT AUTOMATED 295 10*3/uL (130-400); RED BLOOD COUNT 4.37 10*6/uL (4.50-5.90); RED CELL DISTRI WIDTH 19.7 % (0-14.5); WHITE BLOOD COUNT 13.1 10*3/uL (4.8-10.8)
[2017-06-04 06:40] LABS: ALBUMIN 3.5 gm/dl (3.1-4.5); ALKALINE PHOSPHATASE 81 U/L (45-117); BUN 23 mg/dl (7-24); CHLORIDE 106 mmol/L (98-107); CREATININE 0.95 mg/dL (0.70-1.30); PHOSPHOROUS 2.1 mg/dL (2.5-4.9); POTASSIUM 3.7 mmol/L (3.5-5.1); SGOT/AST 21 IU/L (3-35); SGPT/ALT 19 U/L (12-78); SODIUM 144 mmol/L (136-145); TOTAL PROTEIN 6.8 gm/dL (6.4-8.2)
[2017-06-04 07:19] LABS: ACANTHOCYTES FEW; PLATELET SUFFICIENCY NORMAL (NORMAL); SCHISTOCYTES FEW; TOTAL CELLS COUNTED 100 #CELLS
[2017-06-04 08:00] VITALS: BP 123/72
[2017-06-04 12:00] VITALS: BP 111/64
[2017-06-04] MEDS ORDERED: PREDNISONE10 MG PO (13:25)
[2017-06-04] MEDS ORDERED: BUMETANIDE1 MG PO (13:25)
[2017-06-04] MEDS ORDERED: LEVAQUIN750 M1 PO (13:25)
== END 2017-06-04 15:06 | disposition home or self-care (01) | DRG 871 ==
LOC: ED 22:23 → ICCU 05-31 00:28 → EDHOLD 05-31 00:28 → ICCU 05-31 00:38 → 5E 06-02 12:38
PROVIDERS: Emergency Medicine; Internal Medicine; Internal Medicine Hospice and Palliative Medicine; ADMIT Internal Medicine
PROC: 5A09357 Assistance with Respiratory Ventilation, Less than 24 Consecutive Hours, Continuous Positive Airway Pressure (ICD-10-PCS; principal; 2017-05-31)
DX: A41.9 Sepsis, unspecified organism (principal); J18.9 Pneumonia, unspecified organism; J96.21 Acute and chronic respiratory failure with hypoxia; E43 Unspecified severe protein-calorie malnutrition; I50.33 Acute on chronic diastolic (congestive) heart failure; I28.1 Aneurysm of pulmonary artery; I11.0 Hypertensive heart disease with heart failure; I27.81 Cor pulmonale (chronic); Z99.81 Dependence on supplemental oxygen; J44.0 Chronic obstructive pulmonary disease with (acute) lower respiratory infection; J44.1 Chronic obstructive pulmonary disease with (acute) exacerbation; R65.20 Severe sepsis without septic shock; I48.91 Unspecified atrial fibrillation; J62.8 Pneumoconiosis due to other dust containing silica; Z96.1 Presence of intraocular lens; Y95 Nosocomial condition; M81.0 Age-related osteoporosis without current pathological fracture; I25.10 Atherosclerotic heart disease of native coronary artery without angina pectoris; E78.5 Hyperlipidemia, unspecified; E66.8 Other obesity; Z79.01 Long term (current) use of anticoagulants; Z79.899 Other long term (current) drug therapy; Z79.82 Long term (current) use of aspirin; Z87.81 Personal history of (healed) traumatic fracture; Z95.818 Presence of other cardiac implants and grafts; Z68.30 Body mass index [BMI] 30.0-30.9, adult; Z87.891 Personal history of nicotine dependence; Z82.3 Family history of stroke; Z84.89 Family history of other specified conditions; Z98.42 Cataract extraction status, left eye; Z98.41 Cataract extraction status, right eye; Z68.31 Body mass index [BMI] 31.0-31.9, adult

== ENCOUNTER 2017-10-11 17:41 | Inpatient (IN) | payer OTHER ==
[~2017-10-11] VITALS: Ht 172.7 cm; Wt 91.3 kg
--- NOTE | ~2017-10-11 | PR ---
[place], [place] PROGRESS NOTE NAME: MARY MACIAS [facility] #: [id number] UNIT #: [id number] ROOM: 511 DOCTOR: EFRAIN MASON MD,BELGICA BIRTHDATE: [birth year] DOS: 10/14/2017 SUBJECTIVE: The patient was seen and examined on 10/14/2017. He has been noted comfortable reduction in symptoms of shortness of breath has been noted progressively. The patient was continued diuretic therapy as well with the use of intravenous Lasix, noted negative fluid balance. Edema of the lower extremity has been decreasing, but not completely resolved. OBJECTIVE: VITAL SIGNS: For the patient, which has been recorded showed the temperature noted normal, respiratory 20, heart rate 89, blood pressure 144/74 to 123/81. The pulse oxygen saturation was noted 4 L nasal cannula 97% saturation. HEENT: Moderate obesity. Head was atraumatic. Decreased posterior pharyngeal space. NECK: Supple. CARDIOVASCULAR: S1, S2 audible. LUNGS: Noted with scattered crackles of the lungs bilaterally without any wheezing. ABDOMEN: Soft. EXTREMITIES: Shows 1 to maybe 2+ pitting edema. SKIN: Visible skin showed dryness of the lower extremities. MUSCULOSKELETAL: No deformities. CENTRAL NERVOUS SYSTEM: Intact. LABORATORY DATA: ____, hematocrit 38.0, platelet count 448,000. Chest x-ray was done this morning, was personally reviewed shows improvement in the aeration noted as compared with previous chest x-ray with chronic progressive massive pulmonary fibrosis findings noted. IMPRESSION: 1. The patient who has been currently noted with a history of progressive massive pulmonary fibrosis, silicosis with superimposed acute on chronic hypoxic respiratory failure superimposed acute congestive heart failure, diastolic dysfunction. 2. Chronic obesity. 3. Acute exacerbation of bronchial asthma. Question of pneumonia. 4. History of atrial fibrillation. PLAN OF MANAGEMENT: Continue ____ because of the high dose of prednisone use long-term as well. Continuation of the bronchodilators. Solu-Medrol, the patient was getting 60 mg b.i.d. that will be decreased to 60 mg daily starting today. Diuretic therapy. We will continue Lasix with additional 20 mg of Lasix will be given today. Other supportive therapy, plan of management and care. Usual care. All other additional treatment to be continued for the patient based on the progression of the illness. [place], [place] PROGRESS NOTE NAME: MARY MACIAS UNIT #: [id number] ROOM: 511 DOCTOR: BELGICA ORTEGA MD BIRTHDATE: [birth year] BELGICA ZUNIGA MD CM:OLIVIA [id number] BELGICA MASON MD 10/14/17 180 interface
--- NOTE | ~2017-10-11 | PR ---
[place], [place] PROGRESS NOTE NAME: MARY MACIAS [facility] #: [id number] UNIT #: [id number] ROOM: 511 DOCTOR: EFRAIN MASON MD,BELGICA BIRTHDATE: [birth year] DOS: 10/13/2017 SUBJECTIVE: He has been noted reduction of the shortness of breath from yesterday. Mild cough noted without any sputum expectoration. Denies symptoms of chest pain or any hemoptysis. The patient was noted partial reduction in edema of the lower extremities as well. OBJECTIVE: VITAL SIGNS: Normal temperature, respiratory rate 20, heart rate 82, blood pressure 108/68 and 110/70. Pulse oxygen saturation for the patient on CPAP was 96% saturation. Oxygen supplementation 96% saturation as well. HEENT: Chronic moderate obesity. NECK: Supple. CARDIOVASCULAR: S1, S2 audible. LUNGS: Shows scattered crackles of the lung. Decreased breath sounds without any wheezing. ABDOMEN: Soft and obese. EXTREMITIES: Showed reduction of the edema visible. SKIN: No lesions or rashes. MUSCULOSKELETAL: No deformities. CENTRAL NERVOUS SYSTEM: Cranial nerves intact. LABORATORY DATA: CBC today: WBC count 17.3, hemoglobin 9.2, hematocrit 35.9, platelet count 44,000. Blood cultures from 10/11/2017, no bacterial growth of 2017. BMP of the patient this morning, BUN and creatinine were normal, glucose mildly elevated for this patient as 125. The total protein albumin mildly decreased. IMPRESSION: 1. Ongoing acute congestive heart failure, mostly diastolic dysfunction. 2. Chronic anticoagulation with atrial fibrillation. 3. The patient with acute exacerbation of bronchial asthma. 4. Hyperglycemia secondary to the corticosteroids. 5. Leukocytosis secondary to steroids. 6. Rule out pneumonia. 7. History of advanced progressive massive pulmonary fibrosis. PLAN OF MANAGEMENT: The patient will be continued Lasix for the patient at this time. Electrolytes the patient's BUN and creatinine remains stable. Monitoring the patient's respiratory status closely. Negative for active ____ fluid was balance was noted. Continue the Solu-Medrol. Repeat chest x-ray in the morning for the patient to reassess the improvement of the congestive heart failure with a chest x-ray. Other additional treatment changes to be made for this patient based on progression of the illness. Continue the BiPAP from home other times and at night. Supportive care. [place], [place] PROGRESS NOTE NAME: MARY MACIAS UNIT #: [id number] ROOM: 511 DOCTOR: BELGICA OTREGA MD BIRTHDATE: [birth year] BELGICA ZUNIGA MD CM:PNTRANS [id number] BELGICA MASON MD 10/13/17 1532 interface
--- NOTE | ~2017-10-11 | PR ---
[place], [place] PROGRESS NOTE NAME: MARY MACIAS [facility] #: [id number] UNIT #: [id number] ROOM: 511 DOCTOR: EFRAIN MASON MD,BELGICA BIRTHDATE: [birth year] DOS: 10/15/2017 SUBJECTIVE: The patient has been noted comfortable with improvement in the edema lower extremity reduction and shortness of breath. The patient denies symptoms of chest pain. Mild cough was noted without any sputum expectoration. OBJECTIVE: VITAL SIGNS: Normal temperature, respiratory rate 18, heart rate 88, blood pressure 143/95-126/70. HEENT: Moderate obesity. NECK: Supple. CARDIOVASCULAR: S1, S2 is audible. LUNGS: The patient was noted with chronic inspiratory crackles, no wheezing. ABDOMEN: Soft, nontender. EXTREMITIES: Shows mild edema. LABORATORY DATA: CBC today: WBC count 15.2, platelet count 440,000, mild anemia. PT/INR was 1.4. CMP this morning, BUN 28, creatinine was normal. IMPRESSION: Resolving acute congestive heart failure, diastolic dysfunction with acute exacerbation of bronchial asthma and acute bronchitis. Mild azotemia related to use of the corticosteroids and the diuretic therapy with elevation of BUN. PLAN OF MANAGEMENT: No changes in the therapy, plan for this patient at this time. Continue the current plan of care. Usual care, other supportive plan of management and treatments. BELGICA ZUNIGA MD CM:PNTRANS [id number] BELGICA MASON MD 10/15/171927 interface
--- NOTE | ~2017-10-11 | CON ---
[place], [place] REPORT OF CONSULTATION NAME: MARY MACIAS [facility] WITH [facility] #: [id number] UNIT #: [id number] ROOM: 511 DOCTOR: EFRAIN MASON MDBELGICA BIRTHDATE: [birth year] DOS: 10/12/2017 PULMONARY CONSULTATION EVALUATION AND MANAGEMENT NOTE CONSULTATION REQUESTED BY: Hospitalist service. REASON FOR CONSULTATION: Current ongoing acute respiratory complaints assessment. HISTORY OF PRESENT ILLNESS: A 72-year-old white male for patient who had been admitted to the hospital under the hospitalist service at 10/11/2017. The patient reported symptoms of having progressive increase in shortness of breath per the patient occurring at home with generalized weakness and fatigue as described by the . The patient's symptoms of shortness of breath has been noted significantly worsened for this patient at 24-hour prior to the hospitalization. The patient has not been noted any symptoms of chest pain. Denies symptoms of hemoptysis. The patient has been currently admitted to the hospital. The patient has been started under treatment for the patient for the presumed acute pneumonia based on the abnormal chest x-ray and other symptoms. The patient stated he does have a cough for the patient. There were no sputum expectoration. He does not have any symptoms of chest pain or hemoptysis. REVIEW OF SYSTEMS: CONSTITUTIONAL: Fatigue and tiredness noted without symptoms of fever or chills. EYES: Denies any burning, redness, tenderness. EARS, NOSE AND THROAT: He had no associated symptoms of sore throat, hoarseness, otalgia, postnasal drainage or epistaxis. CARDIOVASCULAR: Denies anginal pain noted with edema of the lower extremities for the patient which has increased recently prior to the admission. GENITOURINARY: Denies dysuria, suprapubic pain, and hematuria. GASTROINTESTINAL: No dysphagia, nausea, vomiting, diarrhea, abdominal pain, hematemesis, melena, dysphagia, or recent abnormal weight loss history. SKIN: Chronic bruising of the skin noted because of the chronic prednisone use. MUSCULOSKELETAL: No acute joint pain, redness, or tenderness. CENTRAL NERVOUS SYSTEM: No dizziness, headache, diplopia, or syncopal episodes. Remaining systems were reviewed and they were noted all negative. PAST MEDICAL HISTORY: 1. Noted with hospitalization in 05/2017, and the patient was treated at that time for bxvin-yn-lxyofsb hypoxic respiratory failure at that time as well as superimposed acute congestive heart failure. The patient with a diastolic dysfunction and exacerbation of bronchial asthma. 2. Past history of chronic hypoxic respiratory failure, use of oxygen 4-5 liters nasal cannula at rest and exertion and with the sleep. 3. 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 4. 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 5. Uncomplicated severe persistent bronchial asthma. 6. Coronary artery disease. [place], [place] REPORT OF CONSULTATION NAME: MARY MACIAS UNIT #: [id number] ROOM: [facility] DOCTOR: EFRAIN MASON MD,[facility] BIRTHDATE: [birth year] 7. Congestive heart failure, diastolic dysfunction. 8. Essential hypertension. 9. Znne-mv-aqotkxkf obesity. 10. History of atrial fibrillation. PAST SURGICAL HISTORY: 1. Fusion of the neck. 2. Carpal tunnel surgery. 3. Bilateral cataracts extract and lens infiltration. 4. VATS biopsy of left upper lung 2008, with diagnosis of silicosis confirmed. 5. Therapeutic bronchoscopy, last bronchoscopy done in 04/2017. SOCIAL HISTORY: The patient is and lives at home. Denies history of alcohol use or any illicit drug use. Denies any history of tobacco use at this time. He has been known with cigarette smoking at the age of [age] years old, a pack of cigarettes per day until 2013. He has been noted with exposure to silica dust at his work for several years for at least 25 years. He is and has one child. FAMILY HISTORY: Father at 71 years old, complication related to acute stroke. Mother at 69 years complication related to the liver disease. HOME MEDICATIONS: The patient was listed on admission as use of: 1. Ventolin HFA inhaler p.r.n. use. 2. Xanax 0.25 mg p.o. b.i.d. 3. Aspirin 81 mg p.o. daily. 4. Tessalon Perles 100 mg p.o. t.i.d. p.r.n. for cough. 5. Vitamin D 1000 international units daily. 6. Prolia 60 mg subcutaneously every month. 7. Ferrous sulfate 65 mg for the patient p.o. daily. 8. Flonase 1 spray each nostril b.i.d. 9. Neurontin 1200 mg p.o. b.i.d. 10. Combivent Respimat 1 puff q.i.d. p.r.n. shortness of breath. 11. Protonix 40 mg daily. 12. ____ 200/5 one inhalation daily. 13. Prednisone 15 mg daily. 14. Potassium chloride 20 mEq p.o. in the morning and 40 mEq at bedtime. 15. Xarelto 20 mg p.o. daily. 16. Aldactone 50 mg daily. 17. Demadex 40 mg p.o. daily. DRUG ALLERGIES: No known drug allergies. PHYSICAL EXAMINATION: GENERAL: This is a 72-year-old male who has been currently noted to be awake and alert without any acute distress at time of the assessment, lying in the bed, using oxygen supplementation nasal cannula. The patient's spouse was also present in the room with the patient at time of assessment. VITAL SIGNS: Height of 5 feet 8 inches, weight of 201 pounds, BMI of 30.5. Showed normal temperature, respiratory rate recorded 30 on admission and [place], [place] REPORT OF CONSULTATION NAME: MARY MACIAS UNIT #: [id number] ROOM: [facility] DOCTOR: EFRAIN MASON MD,[facility] BIRTHDATE: [birth year] currently 20, heart rate of 103 on admission and currently 86, blood pressure 100/60-120/72. The pulse oxygen saturation on 2 liters 95% saturation recorded. HEENT: Hczd-lm-iqeiwhju obesity. Head was atraumatic. Eyes nonicterus. NECK: Supple. CARDIOVASCULAR: S1, S2 audible. LUNGS: Noted with diffuse reduction in breath sounds, scattered crackles and expiratory wheezing. ABDOMEN: Noted with moderate obesity. Bowel sounds present. EXTREMITIES: No tenderness. Visible skin for the patient noted area of bruising, medication related with the prednisone, Xarelto and aspirin use likely. Extremity show 1+ pitting edema of the feet for this patient in the lower extremities. There was no evidence of cyanosis or clubbing. CENTRAL NERVOUS SYSTEM: Cranial nerves 2-12 intact. No focal deficit. MUSCULOSKELETAL: No deformities. LABORATORY DATA: Lactic acid on admission was 2.8, followup 1.7. CMP of the patient 09/28/2017, glucose 179, BUN and creatinine were normal, sodium 134. CBC of the patient on 10/11/2017, double count 16.7, hemoglobin 14, hematocrit 44.1, platelet count 485,000. PT/PTT of patient was noted INR of 1.2, PTT normal yesterday. The patient to assess the patient yesterday and this morning all noted normal. CMP of the patient this morning, glucose 139, BUN was normal, creatinine was normal. CMP yesterday for the patient noted normal BUN and creatinine. CBC this morning, WBC count 13.2, hemoglobin 11.6, hematocrit 38.1, platelet count was normal. The PT/INR for patient noted 1.5 today. PTT of 37. The chest x-ray of the patient that was done, 2-view for the patient noted increased haziness of the lungs bilaterally with the possible consideration of pleural fluid for the patient associated with a congestive heart failure. Possibility of increased pulmonary filtration can be completely excluded because of the baseline normal chest x-ray with progressive massive pulmonary fibrosis, acute silicosis. The finding of consolidation are present cannot be clearly elicited with the simple chest x-ray. Changes for this patient of a cervical fusion noted. The metal plate in the cervical spine area. Chest x-ray was personally reviewed. IMPRESSION: 1. The patient who has been currently admitted to the hospital noted a combination of acute exacerbation of bronchial asthma, possible fluid overload with acute congestive heart failure for this patient with the diastolic dysfunction. 2. History of progressive massive pulmonary fibrosis. 3. History of chronic hypoxic respiratory failure as well. 4. Debility secondary to current ongoing acute medical illnesses. The patient has been tested negative TB Gold previously at the bronchoscopy, which was done earlier this year does not show any evidence of Mycobacterium avium complex infection. Overall debility. 5. Obstructive sleep apnea disorder. The patient treated with the BiPAP as well. ____ obstructive sleep apnea disorder treated with the BiPAP. PLAN OF MANAGEMENT: Diuretic therapy for the patient to be continued. The patient has been getting Solu-Medrol 60 mg b.i.d. that will be continued as [place], [place] REPORT OF CONSULTATION NAME: MARY MACIAS Jose Miguel UNIT #: [id number] ROOM: 511 DOCTOR: ARGELIA ORTEGA MDM BIRTHDATE: [birth year] well. The patient has been getting triple antibiotic, which need to be changed to simple antibiotic. For this patient Levaquin should suffice at this time. The possibility of Pseudomonas aeruginosa infection could be seen in people with the use of chronic prednisone 10 mg more that should get adequate coverage for that. Because use of the prednisone for this patient, possibility of pneumocystis infection could also be increased. The patient will be started on the prophylactic dose of Bactrim-DS for this patient one 3 times a week. Collect the sputum for Gram stain and culture. Supportive therapy, plan of management, titrate oxygen 92% greater. Use of the BiPAP for the patient home setting at nighttime and could be used p.r.n. during the day as well. Additional treatment changes to be made based on the progression of the illness. Sputum for Gram stain culture was ordered as well. Supportive care. Additional treatment changes will be made based on progression of the illness. Obtain another chest x-ray in the next couple of days to assess the response to the current treatment. Thank you for allowing me to participate in the care of this patient. BELGICA ZUNIGA MD CM:CONSTR:REPORT OF CONSULTATION 1606 10/13/17 0202 interface
--- NOTE | ~2017-10-11 | EKG ---
[place], [place] ELECTROCARDIOGRAM REPORT NAME: MARY MACIAS UNIT #: [id number] ROOM: 511 DOCTOR: EFRAIN MASON MD,BELGICA BIRTHDATE: [birth year] DOS: 10/11/2017 TIME DONE: 6:09 p.m. INTERPRETATION: Normal sinus rhythm noted. Heart rate 97 beats per minute with APCs, left anterior fascicular block. Possible old inferior myocardial infarction would be considered. BELGICA ZUNIGA MD CM:EKGRPT:ELECTROCARDIOGRAM REPORT [id number] 1910 BELGICA MASON MD
[~2017-10-11 17:41] MED LIST changes: +ALDACTONE50 M1 PO; +BUMETANIDE1 MG PO; +VITAMIN D31000 UNI1 PO; -VITAMIN D400 I1 PO
[2017-10-11 17:59] VITALS: BP 106/55
[2017-10-11 18:18] LABS: HEMATOCRIT 44.1 % (42.0-52.0); MEAN CORPUSCULAR HGB 25.1 pg (27.0-31.0); MEAN CORPUSCULAR HGB CONC 31.7 g/dl (33.0-37.0); MEAN PLATELET VOLUME 9.5 fl (9.6-12.3); PLATELET COUNT AUTOMATED 485 10*3/uL (130-400); RED BLOOD COUNT 5.58 10*6/uL (4.50-5.90); RED CELL DISTRI WIDTH 17.7 % (0-14.5); WHITE BLOOD COUNT 16.7 10*3/uL (4.8-10.8)
[2017-10-11 18:26] LABS: ACT PARTIAL THROMBO TIME 25.5 SECONDS (20.8-31.5); INTERNATIONAL NORM RATIO 1.2 (2.0-3.5)
[2017-10-11 18:35] LABS: ALKALINE PHOSPHATASE 94 U/L (45-117); BUN 20 mg/dl (7-24); CHLORIDE 98 mmol/L (98-107); CREATININE 1.18 mg/dL (0.70-1.30); POTASSIUM 4.5 mmol/L (3.5-5.1); SGOT/AST 30 IU/L (3-35); SGPT/ALT 29 U/L (12-78); SODIUM 134 mmol/L (136-145); TOTAL PROTEIN 7.7 gm/dL (6.4-8.2)
[2017-10-11 18:38] LABS: ATYPICAL LYMPHS 1 % (0-0); BURR CELLS FEW; MICROCYTOSIS SLIGHT; PLATELET SUFFICIENCY NORMAL (NORMAL); TOTAL CELLS COUNTED 100 #CELLS; TROPONIN I < 0.015 ng/ml (<0.045)
[2017-10-11 18:39] LABS: OVALOCYTES FEW
[2017-10-11 18:44] VITALS: BP 100/60
[2017-10-11 20:00] VITALS: BP 92/60
[2017-10-11] MEDS ORDERED: POTASSIUM CHLO20 ME3 PO (20:34)
[2017-10-11] MEDS ORDERED: PREDNISONE10 MG PO (20:36)
[2017-10-11] MEDS ORDERED: PROTONIX TR40 MG PO (20:43)
[2017-10-11] MEDS ORDERED: TESSALON PERLE100 MG PO (20:44)
[2017-10-11] MEDS ORDERED: DEMADEX20 M1 PO (20:46)
[2017-10-11] MEDS ORDERED: FLONASE ALLERG9.9 ML NAS (20:50)
[2017-10-11] MEDS ORDERED: COCONUT OIL1000 MG PO (20:51)
[2017-10-12] VITALS: BP 92/55
[2017-10-12 06:22] LABS: HEMATOCRIT 38.1 % (42.0-52.0); MEAN CELL VOLUME 80.5 fl (80.0-94.0); MEAN CORPUSCULAR HGB 24.5 pg (27.0-31.0); MEAN CORPUSCULAR HGB CONC 30.4 g/dl (33.0-37.0); MEAN PLATELET VOLUME 9.6 fl (9.6-12.3); PLATELET COUNT AUTOMATED 396 10*3/uL (130-400); RED BLOOD COUNT 4.73 10*6/uL (4.50-5.90); RED CELL DISTRI WIDTH 17.4 % (0-14.5); WHITE BLOOD COUNT 13.2 10*3/uL (4.8-10.8)
[2017-10-12 06:25] LABS: HEMOGLOBIN 11.6 g/dl (14.0-18.0)
[2017-10-12 06:38] LABS: ALBUMIN 2.2 gm/dl (3.1-4.5); BUN 20 mg/dl (7-24); CHLORIDE 105 mmol/L (98-107); CHOLESTEROL 153 mg/dL (<200); CREATININE 1.15 mg/dL (0.70-1.30); PHOSPHOROUS 2.5 mg/dL (2.5-4.9); POTASSIUM 4.6 mmol/L (3.5-5.1); SGOT/AST 17 IU/L (3-35); SGPT/ALT 23 U/L (12-78); SODIUM 140 mmol/L (136-145); TOTAL PROTEIN 6.3 gm/dL (6.4-8.2); TRIGLYCERIDES 53 mg/dl (<150); VLDL CHOLESTEROL 11 mg/dL (6-40)
[2017-10-12 06:45] LABS: ALKALINE PHOSPHATASE 73 U/L (45-117); FREE T4 1.15 ng/dl (0.76-1.46); HDL CHOLESTEROL 56 mg/dl (40-60); LDL CHOLESTEROL 86 mg/dL (9-159); THYROID STIM HORMONE (HS) 0.526 uIU/ml (0.358-4.75)
[2017-10-12 06:47] LABS: BURR CELLS MODERATE; PLATELET SUFFICIENCY NORMAL (NORMAL); TOTAL CELLS COUNTED 100 #CELLS
[2017-10-12 07:12] LABS: VITAMIN D, 25-HYDROXY 29.3 ng/mL (30-100)
[2017-10-12 07:13] LABS: ACT PARTIAL THROMBO TIME 37.6 SECONDS (20.8-31.5); INTERNATIONAL NORM RATIO 1.5 (2.0-3.5)
[2017-10-12 08:00] VITALS: BP 116/70
[2017-10-12 12:00] VITALS: BP 120/72
[2017-10-12 16:00] VITALS: BP 136/80
[2017-10-12 20:00] VITALS: BP 139/80
[2017-10-13] VITALS: BP 148/82
[2017-10-13 06:33] LABS: HEMATOCRIT 35.9 % (42.0-52.0); HEMOGLOBIN 11.2 g/dl (14.0-18.0); MEAN CELL VOLUME 79.2 fl (80.0-94.0); MEAN CORPUSCULAR HGB 24.7 pg (27.0-31.0); MEAN CORPUSCULAR HGB CONC 31.2 g/dl (33.0-37.0); MEAN PLATELET VOLUME 9.6 fl (9.6-12.3); PLATELET COUNT AUTOMATED 404 10*3/uL (130-400); RED BLOOD COUNT 4.53 10*6/uL (4.50-5.90); RED CELL DISTRI WIDTH 17.2 % (0-14.5); WHITE BLOOD COUNT 17.3 10*3/uL (4.8-10.8)
[2017-10-13 06:36] LABS: ALBUMIN 2.2 gm/dl (3.1-4.5); ALKALINE PHOSPHATASE 66 U/L (45-117); BUN 18 mg/dl (7-24); CHLORIDE 111 mmol/L (98-107); CREATININE 0.81 mg/dL (0.70-1.30); POTASSIUM 4.8 mmol/L (3.5-5.1); SGOT/AST 23 IU/L (3-35); SGPT/ALT 25 U/L (12-78); SODIUM 139 mmol/L (136-145)
[2017-10-13 07:25] LABS: TOTAL CELLS COUNTED 100 #CELLS
[2017-10-13 07:26] LABS: ACANTHOCYTES FEW; BURR CELLS FEW; OVALOCYTES FEW; PLATELET SUFFICIENCY NORMAL (NORMAL)
[2017-10-13 08:00] VITALS: BP 108/68
[2017-10-13 12:00] VITALS: BP 110/70
[2017-10-13 16:00] VITALS: BP 122/83
[2017-10-13 20:00] VITALS: BP 127/86
[2017-10-14] VITALS: BP 123/81
[2017-10-14 07:14] LABS: BASO % 0.1 % (0.0-1.0); HEMOGLOBIN 12.1 g/dl (14.0-18.0); LYMPH # 0.9 10*3/uL (1.3-4.4); LYMPH % 6.4 % (27.0-41.0); MEAN CELL VOLUME 79.7 fl (80.0-94.0); MEAN CORPUSCULAR HGB 25.4 pg (27.0-31.0); MEAN CORPUSCULAR HGB CONC 31.8 g/dl (33.0-37.0); MEAN PLATELET VOLUME 9.7 fl (9.6-12.3); MONO # 0.6 10*3/uL (0.1-1.0); NEUT # 12.6 10*3/uL (2.3-7.9); NEUT % 87.6 % (47.0-73.0); PLATELET COUNT AUTOMATED 448 10*3/uL (130-400); RED BLOOD COUNT 4.77 10*6/uL (4.50-5.90); RED CELL DISTRI WIDTH 17.5 % (0-14.5); WHITE BLOOD COUNT 14.4 10*3/uL (4.8-10.8)
[2017-10-14 07:46] LABS: ALBUMIN 2.5 gm/dl (3.1-4.5); BUN 23 mg/dl (7-24); CHLORIDE 108 mmol/L (98-107); CREATININE 1.03 mg/dL (0.70-1.30); POTASSIUM 4.7 mmol/L (3.5-5.1); SGOT/AST 18 IU/L (3-35); SGPT/ALT 25 U/L (12-78); SODIUM 142 mmol/L (136-145)
[2017-10-14 07:48] LABS: ALKALINE PHOSPHATASE 63 U/L (45-117); TOTAL PROTEIN 6.2 gm/dL (6.4-8.2)
[2017-10-14 08:00] VITALS: BP 144/74
[2017-10-14 12:00] VITALS: BP 118/72
[2017-10-14 16:00] VITALS: BP 132/87
[2017-10-14 20:00] VITALS: BP 130/96
[2017-10-15] VITALS: BP 143/95
[2017-10-15 07:47] LABS: HEMATOCRIT 40.2 % (42.0-52.0); HEMOGLOBIN 12.4 g/dl (14.0-18.0); MEAN CELL VOLUME 79.6 fl (80.0-94.0); MEAN CORPUSCULAR HGB 24.6 pg (27.0-31.0); MEAN CORPUSCULAR HGB CONC 30.8 g/dl (33.0-37.0); MEAN PLATELET VOLUME 9.6 fl (9.6-12.3); PLATELET COUNT AUTOMATED 440 10*3/uL (130-400); RED BLOOD COUNT 5.05 10*6/uL (4.50-5.90); RED CELL DISTRI WIDTH 17.6 % (0-14.5); WHITE BLOOD COUNT 15.2 10*3/uL (4.8-10.8)
[2017-10-15 08:00] VITALS: BP 126/70
[2017-10-15 08:12] LABS: ALBUMIN 2.7 gm/dl (3.1-4.5); BUN 28 mg/dl (7-24); CHLORIDE 105 mmol/L (98-107); POTASSIUM 4.6 mmol/L (3.5-5.1); SODIUM 141 mmol/L (136-145)
[2017-10-15 08:16] LABS: ALKALINE PHOSPHATASE 68 U/L (45-117); CREATININE 1.12 mg/dL (0.70-1.30); SGOT/AST 19 IU/L (3-35); SGPT/ALT 29 U/L (12-78); TOTAL PROTEIN 6.4 gm/dL (6.4-8.2)
[2017-10-15 08:25] LABS: INTERNATIONAL NORM RATIO 1.4 (2.0-3.5)
[2017-10-15 08:33] LABS: ATYPICAL LYMPHS 3 % (0-0); BURR CELLS FEW; MICROCYTOSIS SLIGHT; PLATELET SUFFICIENCY HIGH (NORMAL); TOTAL CELLS COUNTED 100 #CELLS
[2017-10-15 12:00] VITALS: BP 130/75
[2017-10-15] MEDS ORDERED: SEPTDS PO (14:13)
[2017-10-15] MEDS ORDERED: PREDNISONE10 MG PO (14:13)
== END 2017-10-15 16:31 | disposition home or self-care (01) | DRG 871 ==
LOC: ED 17:41 → 5E 19:10 → EDHOLD 19:10 → 5E 19:39
PROVIDERS: Hospitalist; Internal Medicine Critical Care Medicine; Internal Medicine Hospice and Palliative Medicine; Nurse Practitioner Family; Student in an Organized Health Care Education/Training Program
PROC: 5A09357 Assistance with Respiratory Ventilation, Less than 24 Consecutive Hours, Continuous Positive Airway Pressure (ICD-10-PCS; principal; 2017-10-13)
PROC: 5A09357 Assistance with Respiratory Ventilation, Less than 24 Consecutive Hours, Continuous Positive Airway Pressure (ICD-10-PCS; 2017-10-14)
PROC: 5A09357 Assistance with Respiratory Ventilation, Less than 24 Consecutive Hours, Continuous Positive Airway Pressure (ICD-10-PCS; 2017-10-15)
DX: A41.9 Sepsis, unspecified organism (principal); J18.9 Pneumonia, unspecified organism; J96.21 Acute and chronic respiratory failure with hypoxia; E43 Unspecified severe protein-calorie malnutrition; I50.33 Acute on chronic diastolic (congestive) heart failure; J44.0 Chronic obstructive pulmonary disease with (acute) lower respiratory infection; E87.1 Hypo-osmolality and hyponatremia; I48.2 Chronic atrial fibrillation; D64.9 Anemia, unspecified; I11.0 Hypertensive heart disease with heart failure; J45.51 Severe persistent asthma with (acute) exacerbation; Z99.81 Dependence on supplemental oxygen; R65.20 Severe sepsis without septic shock; E66.09 Other obesity due to excess calories; E55.9 Vitamin D deficiency, unspecified; K21.9 Gastro-esophageal reflux disease without esophagitis; M54.9 Dorsalgia, unspecified; G89.29 Other chronic pain; E78.5 Hyperlipidemia, unspecified; J62.8 Pneumoconiosis due to other dust containing silica; F41.1 Generalized anxiety disorder; M81.0 Age-related osteoporosis without current pathological fracture; J20.9 Acute bronchitis, unspecified; T38.0X5A Adverse effect of glucocorticoids and synthetic analogues, initial encounter; G47.33 Obstructive sleep apnea (adult) (pediatric); I25.10 Atherosclerotic heart disease of native coronary artery without angina pectoris; R73.9 Hyperglycemia, unspecified; Z98.1 Arthrodesis status; Z98.41 Cataract extraction status, right eye; Z68.30 Body mass index [BMI] 30.0-30.9, adult; Z79.52 Long term (current) use of systemic steroids; Z87.891 Personal history of nicotine dependence; Z79.82 Long term (current) use of aspirin; Z79.899 Other long term (current) drug therapy; Y92.89 Other specified places as the place of occurrence of the external cause; Z95.5 Presence of coronary angioplasty implant and graft; Z82.3 Family history of stroke; Z83.79 Family history of other diseases of the digestive system; Z98.42 Cataract extraction status, left eye

== ENCOUNTER 2017-12-18 13:23 | Inpatient (IN) | payer OTHER ==
[~2017-12-18] VITALS: Ht 172.7 cm; Wt 87.5 kg
--- NOTE | ~2017-12-18 | PR ---
[place], [place] PROGRESS NOTE NAME: MARY MACIAS UNIT #: [id number] ROOM: 522 DOCTOR: BELGICA ORTEGA MD BIRTHDATE: [birth year] DOS: 12/22/2017 PULMONARY PROGRESS NOTE SUBJECTIVE: The patient was noted comfortable at this time, shortness of breath. The patient has been improving. The coughing has been subsiding. Denies symptoms of chest pain or any abdominal pain. OBJECTIVE: VITAL SIGNS: For the patient, which are recorded shows temperature remains normal, respiratory rate is 20, heart rate 71, blood pressure 108/71. HEENT: Chronic obesity. NECK: Supple. CARDIOVASCULAR: S1, S2 is audible. LUNGS: The patient was noted without any wheezing. Scattered crackles of the lung were noted bilaterally. ABDOMEN: Soft, nontender with moderate obesity. EXTREMITIES: The patient without any significant edema. LABORATORY DATA: Culture of the sputum for the patient, preliminary noted moderate growth of yeast. Gram stain yesterday moderate white blood cells, epithelial cells, gram-positive cocci in pairs and chains. CBC: WBC count 14.6, hemoglobin 10.7, platelet count 411,000. IMPRESSION: 1. Rather acute pneumonia. The patient superimposed with chronic progressive massive pulmonary fibrosis history for this patient. 2. The patient with chronic respiratory failure as well. 3. Acute exacerbation of bronchial asthma. PLAN OF TREATMENT: The patient has been showing gradual and progressive improvement and resolution of acute symptoms. Could consider home discharge for the patient soon. Monitor culture results of the sputum. Continuation of all other supportive therapy, plan of management and care. Additional treatment changes to be made based on progression of the illness. [place], [place] PROGRESS NOTE NAME: MARY MACIAS UNIT #: [id number] ROOM: 522 DOCTOR: BELGICA ORTEGA MD BIRTHDATE: [birth year] BELGICA ZUNIGA MD CM:PNTRANS [id number] BELGICA MASON MD 12/22/17 1312 interface
--- NOTE | ~2017-12-18 | CON ---
[place], [place] REPORT OF CONSULTATION NAME: MARY MACIAS [facility] #: [id number] UNIT #: [id number] ROOM: 522 DOCTOR: BELGICA ORTEGA MD BIRTHDATE: [birth year] DOS: 12/19/2017 PULMONARY CONSULTATION, EVALUATION AND MANAGEMENT CONSULTATION REQUESTED BY: The hospitalist service. REASON FOR CONSULTATION: To assess the patient for possibility of acute pneumonia, increased shortness of breath and other symptoms. HISTORY OF PRESENT ILLNESS: A 72-year-old white male who has been known to me from the past with history of chronic severe hypoxic respiratory failure, progressive massive pulmonary fibrosis related to the silicosis of the lung. The patient with also known history of bronchial asthma, which was noted uncomplicated, severe persistent and prednisone dependency. He does have a history of obstructive sleep apnea disorder as well. The patient has been seen in the Emergency Room on 12/18/2017. The patient does have symptoms of shortness of breath that was noted for the past couple of days associated with fatigue and tiredness. The patient does have some cough as well, which has been reported to be productive at time with yellow sputum expectoration. He denies any symptoms of chest pain. Reported some wheezing. He came into the Emergency Room. The patient has been assessed in the Emergency Room and admitted to the hospital for further medical management because of the acute on chronic hypoxic respiratory failure. The patient was still complaining of shortness of breath at this time. He has been using the BiPAP as well. He denies any symptoms of wheezing or any acute chest pain. REVIEW OF SYSTEMS: CONSTITUTIONAL: He does report symptoms of fatigue and tiredness, but not any fever or chills. EYES: Denies any burning, redness, or tenderness. THROAT: Denies sore throat, hoarseness, otalgia, postnasal drainage or epistaxis. CARDIOVASCULAR: Denies anginal pain, edema, or pain of the lower extremities or palpitations. GASTROINTESTINAL: Denies dysphagia, nausea, vomiting, diarrhea, abdominal pain, hematemesis, melena, hematochezia. History of chronic obesity without any recent abnormal weight loss history. GENITOURINARY SYMPTOMS: Denies dysuria, suprapubic pain, hematuria or urinary incontinence or hesitancy. MUSCULOSKELETAL: Chronic pain on the back and parts of the body remains unchanged without any symptoms of acute tenderness, redness or new joint pains. CENTRAL NERVOUS SYSTEM: No dizziness, headache, diplopia, syncopal episodes. SKIN: Denies abnormal lesions or rashes. Remaining systems were reviewed with the patient. They were noted all negative. PAST MEDICAL HISTORY: 1. Review of the medical record, previous hospitalization in 10/2017. The patient was treated at that time for the medical management with acute on chronic respiratory failure with congestive heart failure, diastolic [place], [place] REPORT OF CONSULTATION NAME: MARY MACIAS UNIT #: [id number] ROOM: 522 DOCTOR: EFRAIN MASON MD,BELGICA BIRTHDATE: [birth year] dysfunction, exacerbation of bronchial asthma and azotemia and other problems. 2. Past medical history of uncomplicated severe persistent bronchial asthma. 3. Obstructive sleep apnea disorder. 4. Chronic hypoxic respiratory failure, requiring oxygen 4-5 L. 5. Advanced pulmonary silicosis with progressive massive pulmonary fibrosis. 6. Chronic steroid dependence on use of prednisone 50 mg daily. 7. Coronary artery disease. 8. Allergic rhinitis. 9. Essential hypertension. 10. Congestive heart failure with diastolic dysfunction. 11. Nnxd-mw-odxtinfm obesity. 12. Atrial fibrillation. PAST SURGICAL HISTORY: 1. Fusion of the neck. 2. Carpal tunnel release. 3. Bilateral cataract extraction, lens implantation. 4. VATS biopsy of the left upper lung in 2008 ___ diagnosis of silicosis was confirmed from the mass lesion and abnormalities. 5. Therapeutic bronchoscopy as well. SOCIAL HISTORY: The patient is and lives at home. Denies any history of alcohol use, illicit drug use. Tobacco history noted from the age of [age] years old, pack of cigarettes per day and it was discontinued completely 2013. The patient denies any pulmonary-related exposure history. FAMILY HISTORY: The patient's father at 71 years old, complication of acute stroke. Mother at 69 years old, complication related to the liver disease. MEDICATIONS: Medication from home were noted as use of Ventolin HFA, Xanax, aspirin, Tessalon Perles p.r.n. use, vitamin D, Prolia injection, ferrous sulfate, Flonase, Neurontin, Combivent Respimat, Advair 250/50 one inhalation b.i.d., Protonix, prednisone 50 mg daily, potassium 40 mEq daily, Xarelto 20 mg daily, Aldactone 50 mg daily and Demadex 40 mg p.o. daily. DRUG ALLERGIES HISTORY: Noted no known drug allergies. PHYSICAL EXAMINATION: GENERAL: A 72-year-old white male currently noted to be awake and alert, using his oxygen at rest with mild tachypnea. Height of 5 feet 8 inches, weight of 196 pounds with a BMI of 29.8. VITAL SIGNS: For the patient, which was recorded showed the temperature noted as normal. Respiratory rate of 20. Height of 86. Blood pressure 124/52-98/60. Pulse oxygen saturation was noted as 97% on 4 L nasal cannula. HEENT: Shows head was atraumatic. Eyes nonicterus. NECK: Supple. CARDIOVASCULAR: S1, S2 was audible. LUNGS: The patient was noted with chronic inspiratory crackles with acute expiratory wheezing noted scattered in the lungs. [place], [place] REPORT OF CONSULTATION NAME: MARY MACIAS UNIT #: [id number] ROOM: 522 DOCTOR: BELGICA ORTEGA MD BIRTHDATE: [birth year] ABDOMEN: Soft. Mild to moderate obesity. Bowel sounds present. EXTREMITIES: Without any acute edema. CENTRAL NERVOUS SYSTEM: Cranial nerves 2-12 intact. MUSCULOSKELETAL: Without any acute deformities. VISIBLE SKIN: Areas of bruising was noted in the extremities related to the chronic use of prednisone. LABORATORY DATA: Labs reviewed for this admission. CMP of 12/18/2017 yesterday on admission; glucose 144, BUN and creatinine normal, sodium 133. CBC of 12/18/2017; WBC count 19,000, hemoglobin 11.9, hematocrit 38.7, platelet count 464,000. Lactic acid 1.8 was noted on admission as well. CBC of 12/19/2017; WBC count 13.9, hemoglobin 11.2, hematocrit 36.7, platelet count 468,000. PT/INR today were noted 1.5. CMP this morning; BUN 16, creatinine 1.25, glucose 147. The remaining CMP was noted normal except albumin mildly decreased at 2.4. Review of the chest x-ray that was done on this admission on personally reviewed shows evidence of consolidative changes noted superimposed the previous area of pulmonary fibrosis in the right mid lung. Small associated pleural fluid cannot be excluded in the right side as well. The left lung changes remains the same. IMPRESSION: 1. The patient who had been currently admitted to the hospital was noted with finding currently consistent with acute pneumonia involving the right upper lung with a differential of gram-negative, gram-positive infection, high risk of Pseudomonas aeruginosa because of the history of chronic nicotine dependency. 2. The patient with acute exacerbation of bronchial asthma as well. 3. Chronic hypoxic respiratory failure, use of oxygen supplementation remains the same. 4. History of advanced pulmonary silicosis. 5. History of chronic atrial fibrillation with anticoagulation as well. PLAN OF TREATMENT: Continue high dose of Levaquin. Monitor cultures. Sputum for Gram stain culture will be obtained. Monitor blood cultures. Titrate oxygen supplementation, maintain a saturation of oxygen 92% or greater. Continue most of his home treatment as previously ordered. Continue current dose of Solu-Medrol 40 mg b.i.d. Other treatment as previously will be continued including use on his own BiPAP unit from home. Additional treatment changes will be made for the patient based on the progression of his illness. Monitoring of chest x-ray will be done with a repeat chest x-ray will be done in a couple of days to reassess the progression of the pneumonia. [place], [place] REPORT OF CONSULTATION NAME: MARY MACIAS Jose Miguel UNIT #: [id number] ROOM: 522 DOCTOR: BELGICA ORTEGA MD BIRTHDATE: [birth year] BELGICA ZUNIGA MD CM:CONSTR:REPORT OF CONSULTATION 1338 12/20/17 0327 interface
--- NOTE | ~2017-12-18 | PR ---
[place], [place] PROGRESS NOTE NAME: MARY MACIAS [facility] #: [id number] UNIT #: [id number] ROOM: 522 DOCTOR: BELGICA ORTEGA MD BIRTHDATE: [birth year] DOS: 12/21/2017 PULMONARY PROGRESS NOTE SUBJECTIVE: The patient was noted comfortable at this time, sitting on his bed. Denies symptoms of chest pain. Denies symptoms of sputum expectoration. Coughing has been subsiding. There were no symptoms of abdominal pain. OBJECTIVE: VITAL SIGNS: The patient showed normal temperature, respiratory rate 20, heart rate 84, blood pressure 140/63 and 112/61. Pulse oxygen saturation for the patient on 4 liters nasal cannula 96% saturation. HEENT: Examination shows head was atraumatic. Eyes nonicterus. NECK: Supple. CARDIOVASCULAR: S1, S2 audible. LUNGS: The patient was noted without any wheezing or crackles at the present time. Breaths are noted mildly decreased bilaterally. ABDOMEN: Soft, obese, nontender. EXTREMITIES: Acute edema. LABORATORY DATA: Chest x-ray of the patient today was noted partial improvement in the aeration of the right lower lobe with underlying pulmonary fibrosis and superimposed area of consolidation. IMPRESSION: 1. The patient who has been currently noted with acute pneumonia for this patient, which has been treated. At this time improving clinically with some radiologic lack for the patient as well. 2. The patient with ongoing other medical illness of the patient as previously noted, stable. PLAN OF MANAGEMENT: No change in the therapy for the patient at this time will be needed. Continue his current treatment plan of management. Usual care. Other supportive therapies. [place], [place] PROGRESS NOTE NAME: MARY MACIAS [facility] #: [id number] UNIT #: [id number] ROOM: 522 DOCTOR: BELGICA ORTEGA MD BIRTHDATE: [birth year] BELGICA ZUNIGA MD CM:PNTRANS [id number] BELGICA MASON MD 12/21/17 1341 interface
--- NOTE | ~2017-12-18 | PR ---
[place], [place] PROGRESS NOTE NAME: MARY MACIAS [facility] #: [id number] UNIT #: [id number] ROOM: 522 DOCTOR: EFRAIN MASON MD,BELGICA BIRTHDATE: [birth year] DOS: 12/20/2017 PULMONARY PROGRES NOTE SUBJECTIVE: The patient was noted comfortable at this time, resting on the bed. Denies symptoms of chest pain or hemoptysis. Shortness of breath has been decreased. Cough has been noted intermittent nonproductive. REVIEW OF SYSTEMS: Denies abdominal pain. Denies any chest pain. Reports mild edema of the lower extremities. Denies any headache, dizziness, or diplopia. Denies any hematuria. The remaining systems were reviewed, they were noted all negative. PHYSICAL EXAMINATION: GENERAL: This morning the patient was comfortably sitting on the side of the bed. VITAL SIGNS: Temperature recorded normal, respiratory rate 20, heart rate 74, ____, pulse ox saturation on 4 liters nasal cannula maintained at 94%-95% saturation at rest. HEENT: Moderate obesity. Head was atraumatic. Eyes nonicterus. NECK: Supple. CARDIOVASCULAR: S1, S2 is audible. LUNGS: The patient was noted with moderate decreased breath sounds. Scattered crackles and expiratory wheezing. ABDOMEN: Soft and obese. EXTREMITIES: Without any acute edema. CENTRAL NERVOUS SYSTEM: Noted cranial nerves 2-12 intact. No focal deficit. MUSCULOSKELETAL: Without any acute deformities. SKIN: Noted with chronic bruising related to the prednisone use. LABORATORY DATA: CBC: WBC count was noted as 18.8, hemoglobin 10.5, hematocrit 33.1, platelet count 449,000. CMP of the patient's glucose 122, BUN 20, creatinine was normal. Albumin was 2.4. Blood cultures, no bacterial growth. IMPRESSION: 1. The patient currently noted with acute pneumonia with patchy consolidation in the right lung, currently treated with antibiotics for community-acquired infection, responding to the treatment clinically. 2. The patient with acute exacerbation of uncomplicated severe persistent bronchial asthma as a chronic steroid dependency as well. 3. Obstructive sleep apnea disorder and chronic hypoxic respiratory failure. At this time, the patient is responding to the treatment with current medical management, will be continued to use current antibiotic. No changes need to be made. PLAN OF TREATMENT: Repeat a chest x-ray, PA and lateral view in the morning to reassess the progression of the pneumonia. Based on that, the discharge planning for the patient will be started. [place], [place] PROGRESS NOTE NAME: [facility]AS [id number] UNIT #: [id number] ROOM: 522 DOCTOR: BELGICA ORTEGA MD BIRTHDATE: [birth year] BELGICA ZUNIGA MD CM:PNTRANS [id number] BELGICA MASON MD 12/20/17 1017 interface
[2017-12-18 13:23] VITALS: BP 108/74
[~2017-12-18 13:23] MED LIST changes: +COCONUT OIL1000 MG PO; +FLONASE ALLERG9.9 ML NAS; +PROTONIX TR40 MG PO; +SEPTDS PO; +TESSALON PERLE100 MG PO
[2017-12-18 14:16] LABS: HEMATOCRIT 38.7 % (42.0-52.0); HEMOGLOBIN 11.8 g/dl (14.0-18.0); MEAN CELL VOLUME 78.2 fl (80.0-94.0); MEAN CORPUSCULAR HGB 23.8 pg (27.0-31.0); MEAN CORPUSCULAR HGB CONC 30.5 g/dl (33.0-37.0); MEAN PLATELET VOLUME 9.3 fl (9.6-12.3); PLATELET COUNT AUTOMATED 464 10*3/uL (130-400); RED BLOOD COUNT 4.95 10*6/uL (4.50-5.90); RED CELL DISTRI WIDTH 18.9 % (0-14.5)
[2017-12-18 14:30] LABS: ALBUMIN 2.7 gm/dl (3.1-4.5); ALKALINE PHOSPHATASE 82 U/L (45-117); BUN 12 mg/dl (7-24); CHLORIDE 99 mmol/L (98-107); CREATININE 1.17 mg/dL (0.70-1.30); POTASSIUM 4.5 mmol/L (3.5-5.1); SGOT/AST 23 IU/L (3-35); SGPT/ALT 19 U/L (12-78); SODIUM 133 mmol/L (136-145); TOTAL PROTEIN 7.4 gm/dL (6.4-8.2)
[2017-12-18 14:37] LABS: TOTAL CELLS COUNTED 100 #CELLS
[2017-12-18 14:40] LABS: MICROCYTOSIS SLIGHT; PLATELET SUFFICIENCY HIGH (NORMAL)
[2017-12-18 14:41] LABS: POLYCHROMASIA SLIGHT
[2017-12-18 16:20] VITALS: BP 110/74
[2017-12-18 17:50] VITALS: BP 116/74
[2017-12-18 18:03] VITALS: BP 116/74
[2017-12-18] MEDS ORDERED: LIPITOR40 MG PO (18:26)
[2017-12-18] MEDS ORDERED: METOPROLOL SUCC25 M2 PO (18:45)
[2017-12-18 20:00] VITALS: BP 115/66
[2017-12-19] VITALS: BP 98/60
[2017-12-19 04:00] VITALS: BP 104/62
[2017-12-19 07:12] LABS: BASO % 0.1 % (0.0-1.0); HEMATOCRIT 36.7 % (42.0-52.0); HEMOGLOBIN 11.2 g/dl (14.0-18.0); LYMPH # 1.2 10*3/uL (1.3-4.4); LYMPH % 8.4 % (27.0-41.0); MEAN CELL VOLUME 78.9 fl (80.0-94.0); MEAN CORPUSCULAR HGB 24.1 pg (27.0-31.0); MEAN CORPUSCULAR HGB CONC 30.5 g/dl (33.0-37.0); MEAN PLATELET VOLUME 9.5 fl (9.6-12.3); MONO # 0.4 10*3/uL (0.1-1.0); MONO % 2.5 % (3.0-9.0); NEUT # 12.1 10*3/uL (2.3-7.9); NEUT % 87.1 % (47.0-73.0); PLATELET COUNT AUTOMATED 468 10*3/uL (130-400); RED BLOOD COUNT 4.65 10*6/uL (4.50-5.90); RED CELL DISTRI WIDTH 18.8 % (0-14.5); WHITE BLOOD COUNT 13.9 10*3/uL (4.8-10.8)
[2017-12-19 07:24] LABS: INTERNATIONAL NORM RATIO 1.5 (2.0-3.5)
[2017-12-19 07:36] LABS: CHLORIDE 101 mmol/L (98-107); POTASSIUM 4.2 mmol/L (3.5-5.1); SODIUM 136 mmol/L (136-145)
[2017-12-19 07:52] LABS: ALBUMIN 2.4 gm/dl (3.1-4.5); ALKALINE PHOSPHATASE 75 U/L (45-117); BUN 16 mg/dl (7-24); CHOLESTEROL 174 mg/dL (<200); CREATININE 1.25 mg/dL (0.70-1.30); FREE T4 1.07 ng/dl (0.76-1.46); HDL CHOLESTEROL 54 mg/dl (40-60); LDL CHOLESTEROL 106 mg/dL (9-159); PHOSPHOROUS 3.3 mg/dL (2.5-4.9); SGOT/AST 23 IU/L (3-35); SGPT/ALT 19 U/L (12-78); THYROID STIM HORMONE (HS) 0.693 uIU/ml (0.358-4.75); TOTAL PROTEIN 7.4 gm/dL (6.4-8.2); TRIGLYCERIDES 70 mg/dl (<150); VLDL CHOLESTEROL 14 mg/dL (6-40)
[2017-12-19 08:00] VITALS: BP 124/62
[2017-12-19 08:53] LABS: VITAMIN D, 25-HYDROXY 31.7 ng/mL (30-100)
[2017-12-19 12:00] VITALS: BP 109/65
[2017-12-19 16:00] VITALS: BP 91/65
[2017-12-19 20:00] VITALS: BP 107/77
[2017-12-20] VITALS: BP 120/82
[2017-12-20 06:33] LABS: HEMATOCRIT 33.1 % (42.0-52.0); HEMOGLOBIN 10.5 g/dl (14.0-18.0); MEAN CELL VOLUME 77.5 fl (80.0-94.0); MEAN CORPUSCULAR HGB 24.6 pg (27.0-31.0); MEAN CORPUSCULAR HGB CONC 31.7 g/dl (33.0-37.0); MEAN PLATELET VOLUME 9.5 fl (9.6-12.3); PLATELET COUNT AUTOMATED 449 10*3/uL (130-400); RED BLOOD COUNT 4.27 10*6/uL (4.50-5.90); RED CELL DISTRI WIDTH 18.9 % (0-14.5); WHITE BLOOD COUNT 18.8 10*3/uL (4.8-10.8)
[2017-12-20 07:03] LABS: ALBUMIN 2.4 gm/dl (3.1-4.5); BUN 20 mg/dl (7-24); CHLORIDE 103 mmol/L (98-107); POTASSIUM 4.2 mmol/L (3.5-5.1); SGOT/AST 19 IU/L (3-35); SGPT/ALT 19 U/L (12-78); SODIUM 138 mmol/L (136-145)
[2017-12-20 07:06] LABS: ALKALINE PHOSPHATASE 65 U/L (45-117); CREATININE 0.94 mg/dL (0.70-1.30); TOTAL PROTEIN 6.5 gm/dL (6.4-8.2)
[2017-12-20 07:17] LABS: ACANTHOCYTES MODERATE; MICROCYTOSIS SLIGHT; PLATELET SUFFICIENCY HIGH (NORMAL); TOTAL CELLS COUNTED 100 #CELLS
[2017-12-20 07:50] VITALS: BP 132/69
[2017-12-20 12:00] VITALS: BP 109/60
[2017-12-20 16:00] VITALS: BP 132/79
[2017-12-20 20:00] VITALS: BP 135/88
[2017-12-21] VITALS: BP 112/61
[2017-12-21 05:55] LABS: HEMATOCRIT 35.4 % (42.0-52.0); HEMOGLOBIN 11.1 g/dl (14.0-18.0); MEAN CELL VOLUME 77.8 fl (80.0-94.0); MEAN CORPUSCULAR HGB 24.4 pg (27.0-31.0); MEAN CORPUSCULAR HGB CONC 31.4 g/dl (33.0-37.0); MEAN PLATELET VOLUME 9.5 fl (9.6-12.3); PLATELET COUNT AUTOMATED 473 10*3/uL (130-400); RED BLOOD COUNT 4.55 10*6/uL (4.50-5.90); RED CELL DISTRI WIDTH 18.8 % (0-14.5); WHITE BLOOD COUNT 16.1 10*3/uL (4.8-10.8)
[2017-12-21 06:57] LABS: BURR CELLS FEW; MICROCYTOSIS SLIGHT; PLATELET SUFFICIENCY HIGH (NORMAL); SCHISTOCYTES FEW; TOTAL CELLS COUNTED 100 #CELLS
[2017-12-21 08:00] VITALS: BP 114/62
[2017-12-21 12:00] VITALS: BP 104/63
[2017-12-21 12:17] LABS: ABG BASE EXCESS 1.8 mmol/L (-2.0-2.0); ABG HCO3 24.9 mmol/l (22-26); ABG O2 SATURATION 97.1 % (95-97); ARTERIAL BLOOD GAS PCO2 34.1 mmHg (35-45); ARTERIAL BLOOD GAS PH 7.473 (7.35-7.45); ARTERIAL BLOOD GAS PO2 83.7 mmHg (80-90)
[2017-12-21 16:00] VITALS: BP 123/67
[2017-12-21 20:00] VITALS: BP 129/79
[2017-12-22] VITALS: BP 114/55
[2017-12-22 06:49] LABS: HEMATOCRIT 34.7 % (42.0-52.0); HEMOGLOBIN 10.7 g/dl (14.0-18.0); MEAN CELL VOLUME 77.8 fl (80.0-94.0); MEAN CORPUSCULAR HGB CONC 30.8 g/dl (33.0-37.0); MEAN PLATELET VOLUME 9.2 fl (9.6-12.3); PLATELET COUNT AUTOMATED 411 10*3/uL (130-400); RED BLOOD COUNT 4.46 10*6/uL (4.50-5.90); WHITE BLOOD COUNT 14.6 10*3/uL (4.8-10.8)
[2017-12-22 07:10] LABS: TOTAL CELLS COUNTED 100 #CELLS
[2017-12-22 07:11] LABS: ACANTHOCYTES FEW; PLATELET SUFFICIENCY NORMAL (NORMAL)
[2017-12-22 08:00] VITALS: BP 108/71
[2017-12-22 12:00] VITALS: BP 105/70
[2017-12-22] MEDS ORDERED: PREDNISONE10 MG PO (13:20)
[2017-12-22] MEDS ORDERED: LEVAQUIN500 M2 PO (13:20)
== END 2017-12-22 14:14 | disposition home or self-care (01) | DRG 871 ==
LOC: ED 13:23 → 5E 16:33 → EDHOLD 16:33 → 5E 16:55
PROVIDERS: Emergency Medicine; Family Medicine; Internal Medicine; Internal Medicine Critical Care Medicine
PROC: 5A09357 Assistance with Respiratory Ventilation, Less than 24 Consecutive Hours, Continuous Positive Airway Pressure (ICD-10-PCS; principal; 2017-12-18)
PROC: 5A09357 Assistance with Respiratory Ventilation, Less than 24 Consecutive Hours, Continuous Positive Airway Pressure (ICD-10-PCS; 2017-12-19)
PROC: 5A09357 Assistance with Respiratory Ventilation, Less than 24 Consecutive Hours, Continuous Positive Airway Pressure (ICD-10-PCS; 2017-12-21)
PROC: 5A09357 Assistance with Respiratory Ventilation, Less than 24 Consecutive Hours, Continuous Positive Airway Pressure (ICD-10-PCS; 2017-12-22)
DX: A41.9 Sepsis, unspecified organism (principal); J18.9 Pneumonia, unspecified organism; E43 Unspecified severe protein-calorie malnutrition; J90 Pleural effusion, not elsewhere classified; J96.11 Chronic respiratory failure with hypoxia; I11.0 Hypertensive heart disease with heart failure; I27.81 Cor pulmonale (chronic); I50.32 Chronic diastolic (congestive) heart failure; E87.1 Hypo-osmolality and hyponatremia; J45.51 Severe persistent asthma with (acute) exacerbation; J44.9 Chronic obstructive pulmonary disease, unspecified; I48.2 Chronic atrial fibrillation; K21.9 Gastro-esophageal reflux disease without esophagitis; I87.2 Venous insufficiency (chronic) (peripheral); D50.9 Iron deficiency anemia, unspecified; D47.3 Essential (hemorrhagic) thrombocythemia; J62.8 Pneumoconiosis due to other dust containing silica; I25.10 Atherosclerotic heart disease of native coronary artery without angina pectoris; F41.1 Generalized anxiety disorder; M54.9 Dorsalgia, unspecified; R73.9 Hyperglycemia, unspecified; M81.0 Age-related osteoporosis without current pathological fracture; E78.5 Hyperlipidemia, unspecified; G89.29 Other chronic pain; E55.9 Vitamin D deficiency, unspecified; G47.33 Obstructive sleep apnea (adult) (pediatric); E66.8 Other obesity; Z96.1 Presence of intraocular lens; Z99.81 Dependence on supplemental oxygen; Z87.01 Personal history of pneumonia (recurrent); Z79.899 Other long term (current) drug therapy; Z79.82 Long term (current) use of aspirin; Z98.1 Arthrodesis status; Z98.61 Coronary angioplasty status; Z98.41 Cataract extraction status, right eye; Z87.891 Personal history of nicotine dependence; Z82.3 Family history of stroke; Z84.89 Family history of other specified conditions; Z87.09 Personal history of other diseases of the respiratory system; Z79.51 Long term (current) use of inhaled steroids; Z98.42 Cataract extraction status, left eye; Z79.01 Long term (current) use of anticoagulants; Z68.29 Body mass index [BMI] 29.0-29.9, adult

== ENCOUNTER 2018-01-24 15:05 | Inpatient (IN) | payer OTHER ==
[~2018-01-24] VITALS: Ht 172.7 cm; Wt 87.6 kg
--- NOTE | ~2018-01-24 | CON ---
[place], [place] REPORT OF CONSULTATION NAME: MARY MACIAS [facility] #: [id number] UNIT #: [id number] ROOM: 422 DOCTOR: EFRAIN MASON MDBELGICA BIRTHDATE: [birth year] DOS: 01/25/2018 PULMONARY CONSULTATION EVALUATION AND MANAGEMENT CONSULTATION REQUESTED BY: Hospitalist service. REASON FOR CONSULTATION: Shortness of breath. HISTORY OF PRESENT ILLNESS: This is a consultation at the request of the hospitalist services. 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 The patient does not have any symptoms of coughing, hemoptysis, chest pain, or wheezing. The edema of the lower extremities have been noted progressively worsened. He does take a diuretic therapy as well. The patient denies any symptom of hemoptysis. Denies symptoms of a chest trauma. The patient stated shortness of breath has been noted decreased from yesterday. The edema of the lower extremities is also resolving. He presented to the hospital as the patient came to the Emergency Room by his . He was also noted symptoms of orthopnea for the patient as well. REVIEW OF SYSTEMS: CONSTITUTIONAL: General weakness and fatigue were reported without any symptoms of fever or chills. EYES: Denies any burning, redness, or tenderness. EARS, NOSE, AND THROAT SYMPTOMS: Denies sore throat, hoarseness, otalgia, or postnasal drainage or epistaxis. CARDIOVASCULAR: Denies angina pain with edema currently in lower extremity noted recently worsened. Denies any palpitations. GASTROINTESTINAL: Dysphagia, nausea, vomiting, diarrhea, abdominal pain, hematemesis, melena, or hematochezia. GENITOURINARY: No dysuria, suprapubic pain, or hematuria. MUSCULOSKELETAL: The patient noted chronic pain on the back, otherwise deemed stable at this time without any redness of any joints. SKIN: Denies any abnormal lesions or rashes. History of chronic intermittent bruising noted because of the use of prednisone terminal carman. CENTRAL NERVOUS SYSTEM: No dizziness, headache, diplopia, or syncopal episodes. Remaining systems were reviewed with the patient, they were noted all negative. PAST MEDICAL HISTORY: 1. The patient was noted with chronic hypoxic respiratory failure, use of oxygen supplementation, 5-6 liter nasal cannula. 2. 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 3. Uncomplicated severe persistent bronchial asthma and acute chronic dependence on the steroids 50 mg daily use. 4. Obstructive sleep apnea disorder. [place], [place] REPORT OF CONSULTATION NAME: MARY MACIAS UNIT #: [id number] ROOM: [facility] [birth year] 5. Coronary artery disease. 6. Essential hypertension. 7. Acute congestive heart failure, diastolic dysfunction. 8. Ldem-kg-dpqbozap obesity. 9. Atrial fibrillation. 10. History of allergic rhinitis. PAST SURGICAL HISTORY: 1. Fusion of the cervical spine of the neck. 2. Carpal tunnel surgery. 3. Bilateral cataract extraction with lens implantation. 4. VATS biopsy of the left upper lung. 5. Therapeutic bronchoscopy. 6. Cardiac catheterization and coronary artery stent insertion recently. SOCIAL HISTORY: The patient is and lives at home. Denies use of alcohol use, illicit drug use. Tobacco use noted from a teenager about a pack of cigarettes per day. Complete tobacco cessation was done for the patient in 2013. 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 FAMILY HISTORY: The patient's father at a 71 years old with complication of acute stroke. Mother at the age of 6969 years old with complication related to the liver disease. MEDICATIONS: Current administered medication noted use of ferrous sulfate, vitamin D, calcium carbonate, metoprolol succinate, Flonase, Lipitor, Solu-Medrol 40 mg q.8h., Protonix, gabapentin, Xarelto 20 mg, DuoNeb q.6h., Lasix 60 mg IV b.i.d., Levaquin and others. DRUG ALLERGY HISTORY: ALLERGY TO THE CLINDAMYCIN CAUSING REDNESS AND SKIN HIVES. PHYSICAL EXAMINATION: GENERAL: A 72-year-old white male currently noted to be awake and alert for the patient sitting on the bed, raised his both lower extremities. The height of the patient noted 5 feet 8 inches, weight of 193 pounds, BMI 29. VITAL SIGNS: For the patient noted normal temperature, respiratory rate of 20-24. Height 72-100, blood pressure 114/68, 150/79, pulse oxygen saturation on 4 liter nasal cannula 95% saturation. HEENT: Head was atraumatic. Eyes nonicterus. NECK: Supple. Ujrn-ij-cpsexklo obesity. Decreased posterior pharyngeal space, high tongue base crowding soft tissue structures. CARDIOVASCULAR: S1, S2 audible. LUNGS: The patient was noted with mild decreased breath sounds bilaterally without wheezing or crackles at the present time. ABDOMEN: Soft, obese, and nontender. EXTREMITIES: Show 2+ pitting edema with skin dryness of the skin of lower extremity, scattered bruising of the skin. PSYCHIATRIC: Long-term use of prednisone and current use of Xarelto. [place], [place] REPORT OF CONSULTATION NAME: MARY MACIAS UNIT #: [id number] ROOM: [facility] DOCTOR: EFRAIN MASON MDBELGICA BIRTHDATE: [birth year] CENTRAL NERVOUS SYSTEM: Cranial nerves 2-12 intact. No focal deficit. MUSCULOSKELETAL: Without any acute deformities. LABORATORY DATA: The lactic acid yesterday on admission noted normal. CMP yesterday on admission, glucose 156. Normal BUN and creatinine, sodium 135. PT, PTT, INR 1.2, normal PTT. CBC of the patient on 01/24/2018, WBC 16.8, hemoglobin 12.6, hematocrit of 39.8, and platelet count 515,000. The lactic acid, which was again repeated this morning was normal. CBC of the patient, which was repleted this morning noted as WBC count 17.2, hemoglobin 12.7, hematocrit 41.9, and platelet count 516,000, 98% segmented neutrophils. INR today was noted 1.3. CMP this morning, BUN 21 and creatinine 1.47. The chest x-ray of the patient that was done for the patient one-view was reviewed shows chronic pulmonary silicosis of the lung was noted, difficult to exclude any acute superimposed cardiopulmonary process including congestive heart failure with background abnormalities. Mild pulmonary venous congestion was considered. IMPRESSION: 1. The patient who has been currently admitted to the hospital related to acute congestive heart failure, diastolic dysfunction. 2. Chronic atrial fibrillation. 3. History of uncomplicated severe persistent bronchial asthma. Does not seem to have any acute exacerbation at this time. 4. Chronic hypoxic respiratory failure as well. 5. Advanced pulmonary silicosis of the lung with progressive massive pulmonary fibrosis. 6. Overall debility. 7. History of allergic rhinitis and other medical problem as listed. PLAN OF TREATMENT: At this time, the patient's Solu-Medrol will be decreased to be started at usual dose of prednisone 15 mg daily. Antibiotic may need to be discontinued as well. There was no suspicion of active infection. Maximize the medical management for congestive heart failure primary treatment. Also, obtain a chest x-ray, PA and lateral view for assessment of current resolution of pulmonary venous congestion. Congestive heart failure, the patient stating the edema of the lower extremities has been improving progressively and significantly at the present time. All other supportive therapy, plan of management, care plan for the patient is in progress. Usual care. Thanks for allowing me to participate in care of this patient. [place], [place] REPORT OF CONSULTATION NAME: MARY MACIAS [facility] UNIT #: [id number] ROOM: 422 DOCTOR: BELGICA ORTEGA MD BIRTHDATE: [birth year] BELGICA ZUNIGA MD CM:CONSTR:REPORT OF CONSULTATION 1409 01/25/18 513 interface
--- NOTE | ~2018-01-24 | PR ---
[place], [place] PROGRESS NOTE [id number] UNIT #: [id number] ROOM: 422 DOCTOR: BELGICA ORTEGA MD BIRTHDATE: [birth year] DOS: 01/26/2018 SUBJECTIVE: He has been noted comfortable at this time, resting on the bed. Shortness of breath seemed to be decreasing progressively. Edema of the lower extremities were resolving. Denies symptoms of chest pain or any hemoptysis at this time. OBJECTIVE: VITAL SIGNS: Shows normal temperature, respiratory rate 20, heart rate 94, blood pressure 112/76-122/77. The pulse oxygen saturation on 4 liters nasal cannula 98% saturation. HEENT: Shows head was atraumatic. Eyes nonicterus. NECK: Supple. CARDIOVASCULAR: S1, S2 audible. LUNGS: Noted with ooiv-eh-szzlpcfp decreased breath sounds. There were no wheezing or crackles. ABDOMEN: Soft, nontender. EXTREMITIES: Without any acute new changes. Very minimal edema noted, significant edema of lower extremity has been noted. Dryness of the skin was visible. LABORATORY DATA: WBC count 18,000, hemoglobin 12.3, hematocrit 40.5, platelet count 281,000. Chest x-ray done this morning was noted with chronic changes at this time without any pleural fluids or other abnormalities. BMP: BUN 28, creatinine 1.35. IMPRESSION: The patient with chronic progressive massive pulmonary fibrosis, silicosis resolving, acute congestive heart failure, diastolic dysfunction as well as exacerbation of chronic obstructive pulmonary disease, leukocytosis induced mostly by the corticosteroids. PLAN OF MANAGEMENT: No changes from the pulmonary standpoint. Discharge planning per primary care physician. Noted with mild hematuria, most likely traumatic with insertion of Bradford catheter as per patient, which has been investigated by the primary care attending. [place], [place] PROGRESS NOTE [facility]: [facility] [id number] UNIT #: [id number] ROOM: 422 DOCTOR: BELGICA ORTEGA MD BIRTHDATE: [birth year] BELGICA ZUNIGA MD CM:PNTRANS [id number] BELGICA MASON MD 01/27/18 0049 interface
--- NOTE | ~2018-01-24 | PR ---
[place], [place] PROGRESS NOTE NAME: MARY MACIAS [facility] #: [id number] UNIT #: [id number] ROOM: 422 DOCTOR: EFRAIN MASON MD,BELGICA BIRTHDATE: [birth year] DOS: 01/27/2018 SUBJECTIVE: The patient was noted with continued improvement and resolution of the symptoms of shortness breath with current medical management with edema of lower extremities are markedly. The hematuria patient has been noted decreased. The Bradford catheter was removed. OBJECTIVE: VITAL SIGNS: Patient shows a normal temperature, respiratory rate 20, heart rate 90, blood pressure 120/71. Pulse oxygen saturation 4 liters of 97% saturation to the baseline oxygen use. HEENT: Examination shows kwkz-eg-vbxuikxn obesity. Neck was supple. Head was atraumatic. Eyes nonicterus. CARDIOVASCULAR: S1, S2 audible. LUNGS: Clear of any wheezing or crackles. ABDOMEN: Soft, nontender. EXTREMITIES: Without any edema. Dryness of the skin of the lower extremities. LABORATORY DATA: CBC today, WBC count 17.1, hemoglobin of 12.7. The platelet count 437,000. BMP this morning, BUN 22, creatinine was normal. Echocardiogram completed yesterday was reported as findings reported by Dr. Staley, ejection fraction noted as 65% with diastolic dysfunction. PLAN OF TREATMENT: 1. The patient could be considered home discharge with adjustment diuretics will be needed. Tapering dose of prednisone of usual dose of 50 mg for the patient for the next 3 days will be recommended. He would not require any antibiotic. 2. Leukocytosis related to the use of corticosteroid should resolve and would not require any intervention at this time. BELGICA ZUNIGA MD CM:PNTRANS [id number] BELGICA MASON MD 01/27/18 5447 interface
--- NOTE | ~2018-01-24 | EKG ---
[place], [place] ELECTROCARDIOGRAM REPORT [id number] UNIT #: [id number] ROOM: 422 DOCTOR: GRZEGORZ YOST MD BIRTHDATE: [birth year] DOS: 01/24/2018 TIME: 1533 hours. FINDINGS: 1. Normal sinus rhythm at 82 beats per minute. 2. An intraventricular conduction defect including left anterior hemiblock. 3. An abnormal ECG. GRZEGORZ YOST MD CM:EKGRPT:ELECTROCARDIOGRAM REPORT [id number] 1805 GRZEGORZ YOST MD
[~2018-01-24 15:05] MED LIST changes: +LIPITOR40 MG PO; +METOPROLOL SUCC25 M2 PO
[2018-01-24 15:18] VITALS: BP 122/69
[2018-01-24 15:44] LABS: HEMATOCRIT 39.8 % (42.0-52.0); HEMOGLOBIN 12.6 g/dl (14.0-18.0); MEAN CELL VOLUME 77.4 fl (80.0-94.0); MEAN CORPUSCULAR HGB 24.5 pg (27.0-31.0); MEAN CORPUSCULAR HGB CONC 31.7 g/dl (33.0-37.0); MEAN PLATELET VOLUME 9.4 fl (9.6-12.3); PLATELET COUNT AUTOMATED 515 10*3/uL (130-400); RED BLOOD COUNT 5.14 10*6/uL (4.50-5.90); RED CELL DISTRI WIDTH 18.9 % (0-14.5); WHITE BLOOD COUNT 16.8 10*3/uL (4.8-10.8)
[2018-01-24 15:53] LABS: ACT PARTIAL THROMBO TIME 24.3 SECONDS (20.8-31.5); INTERNATIONAL NORM RATIO 1.2 (2.0-3.5)
[2018-01-24 16:02] VITALS: BP 126/75
[2018-01-24 16:02] LABS: ALBUMIN 3.2 gm/dl (3.1-4.5); ALKALINE PHOSPHATASE 81 U/L (45-117); BUN 15 mg/dl (7-24); CHLORIDE 100 mmol/L (98-107); CREATININE 1.09 mg/dL (0.70-1.30); POTASSIUM 4.6 mmol/L (3.5-5.1); SGOT/AST 20 IU/L (3-35); SGPT/ALT 20 U/L (12-78); SODIUM 135 mmol/L (136-145); TOTAL PROTEIN 7.3 gm/dL (6.4-8.2)
[2018-01-24 16:08] LABS: TROPONIN I < 0.015 ng/ml (<0.045)
[2018-01-24 16:19] LABS: PLATELET SUFFICIENCY HIGH (NORMAL); TOTAL CELLS COUNTED 100 #CELLS
[2018-01-24 16:20] LABS: ACANTHOCYTES FEW; BURR CELLS FEW
[2018-01-24 16:21] LABS: MICROCYTOSIS SLIGHT; POLYCHROMASIA SLIGHT
[2018-01-24 16:50] VITALS: BP 100/63
[2018-01-24 17:30] VITALS: BP 115/70
[2018-01-24 18:01] VITALS: BP 114/68
[2018-01-24 18:54] VITALS: BP 126/76
[2018-01-25] VITALS: BP 124/85
[2018-01-25 06:13] LABS: HEMATOCRIT 41.9 % (42.0-52.0); HEMOGLOBIN 12.7 g/dl (14.0-18.0); MEAN CELL VOLUME 79.7 fl (80.0-94.0); MEAN CORPUSCULAR HGB 24.1 pg (27.0-31.0); MEAN CORPUSCULAR HGB CONC 30.3 g/dl (33.0-37.0); MEAN PLATELET VOLUME 9.8 fl (9.6-12.3); PLATELET COUNT AUTOMATED 516 10*3/uL (130-400); RED BLOOD COUNT 5.26 10*6/uL (4.50-5.90); RED CELL DISTRI WIDTH 19.7 % (0-14.5); WHITE BLOOD COUNT 17.2 10*3/uL (4.8-10.8)
[2018-01-25 06:37] LABS: INTERNATIONAL NORM RATIO 1.3 (2.0-3.5)
[2018-01-25 06:39] LABS: TOTAL CELLS COUNTED 100 #CELLS
[2018-01-25 06:40] LABS: ACANTHOCYTES FEW; BURR CELLS FEW; CREATININE 1.47 mg/dL (0.70-1.30); OVALOCYTES FEW; PHOSPHOROUS 6.1 mg/dL (2.5-4.9); PLATELET SUFFICIENCY HIGH (NORMAL); POTASSIUM 4.3 mmol/L (3.5-5.1); TOTAL PROTEIN 7.4 gm/dL (6.4-8.2)
[2018-01-25 06:47] LABS: THYROID STIM HORMONE (HS) 0.746 uIU/ml (0.358-4.75)
[2018-01-25 08:00] VITALS: BP 115/75
[2018-01-25] MEDS ORDERED: PREDNISONE5 MG PO (09:50)
[2018-01-25] MEDS ORDERED: PERCOCET 5-3251 EACH PO (11:02)
[2018-01-25] MEDS ORDERED: TORSEMIDE20 MG PO (11:05)
[2018-01-25] MEDS ORDERED: DUONEB 3 MG/3 ML3 M1 INH (11:07)
[2018-01-25] MEDS ORDERED: PROTONIX40 MG PO (11:07)
[2018-01-25 12:00] VITALS: BP 115/79
[2018-01-25 16:00] VITALS: BP 108/80
[2018-01-25 20:00] VITALS: BP 125/73
[2018-01-26] VITALS: BP 122/77
[2018-01-26 06:48] LABS: HEMATOCRIT 40.4 % (42.0-52.0); HEMOGLOBIN 12.3 g/dl (14.0-18.0); MEAN CELL VOLUME 79.5 fl (80.0-94.0); MEAN CORPUSCULAR HGB 24.2 pg (27.0-31.0); MEAN CORPUSCULAR HGB CONC 30.4 g/dl (33.0-37.0); MEAN PLATELET VOLUME 9.9 fl (9.6-12.3); PLATELET COUNT AUTOMATED 481 10*3/uL (130-400); RED BLOOD COUNT 5.08 10*6/uL (4.50-5.90); RED CELL DISTRI WIDTH 19.4 % (0-14.5)
[2018-01-26 07:12] LABS: BUN 28 mg/dl (7-24); CHLORIDE 98 mmol/L (98-107); CREATININE 1.35 mg/dL (0.70-1.30); POTASSIUM 3.9 mmol/L (3.5-5.1); SODIUM 137 mmol/L (136-145)
[2018-01-26 07:59] LABS: PLATELET SUFFICIENCY HIGH (NORMAL); TOTAL CELLS COUNTED 100 #CELLS
[2018-01-26 08:00] VITALS: BP 112/76
[2018-01-26 12:00] VITALS: BP 117/71
[2018-01-26 16:00] VITALS: BP 107/73
[2018-01-26 20:00] VITALS: BP 106/76
[2018-01-27] VITALS: BP 149/64
[2018-01-27 07:28] LABS: HEMATOCRIT 41.6 % (42.0-52.0); HEMOGLOBIN 12.7 g/dl (14.0-18.0); MEAN CELL VOLUME 79.4 fl (80.0-94.0); MEAN CORPUSCULAR HGB 24.2 pg (27.0-31.0); MEAN CORPUSCULAR HGB CONC 30.5 g/dl (33.0-37.0); MEAN PLATELET VOLUME 9.4 fl (9.6-12.3); PLATELET COUNT AUTOMATED 437 10*3/uL (130-400); RED BLOOD COUNT 5.24 10*6/uL (4.50-5.90); RED CELL DISTRI WIDTH 18.9 % (0-14.5); WHITE BLOOD COUNT 17.1 10*3/uL (4.8-10.8)
[2018-01-27 07:36] LABS: BUN 22 mg/dl (7-24); CREATININE 1.09 mg/dL (0.70-1.30); SODIUM 136 mmol/L (136-145)
[2018-01-27 07:56] LABS: MICROCYTOSIS SLIGHT; OVALOCYTES FEW; PLATELET SUFFICIENCY HIGH (NORMAL); TOTAL CELLS COUNTED 100 #CELLS
[2018-01-27 08:00] VITALS: BP 120/71
[2018-01-27 08:07] LABS: CHLORIDE 95 mmol/L (98-107); POTASSIUM 2.9 mmol/L (3.5-5.1)
[2018-01-27] MEDS ORDERED: LASIX40 MG PO (13:17)
== END 2018-01-27 14:05 | disposition home or self-care (01) | DRG 291 ==
LOC: ED 15:05 → 4E 17:21 → EDHOLD 17:21 → 4E 18:18
PROVIDERS: Family Medicine; Internal Medicine; Student in an Organized Health Care Education/Training Program
PROC: 5A09357 Assistance with Respiratory Ventilation, Less than 24 Consecutive Hours, Continuous Positive Airway Pressure (ICD-10-PCS; principal; 2018-01-25)
PROC: 5A09357 Assistance with Respiratory Ventilation, Less than 24 Consecutive Hours, Continuous Positive Airway Pressure (ICD-10-PCS; 2018-01-27)
DX: I50.33 Acute on chronic diastolic (congestive) heart failure (principal); N17.0 Acute kidney failure with tubular necrosis; J18.9 Pneumonia, unspecified organism; J96.11 Chronic respiratory failure with hypoxia; E44.0 Moderate protein-calorie malnutrition; G62.9 Polyneuropathy, unspecified; I27.81 Cor pulmonale (chronic); E87.1 Hypo-osmolality and hyponatremia; J44.1 Chronic obstructive pulmonary disease with (acute) exacerbation; Z99.81 Dependence on supplemental oxygen; I11.0 Hypertensive heart disease with heart failure; I48.2 Chronic atrial fibrillation; J84.10 Pulmonary fibrosis, unspecified; D47.3 Essential (hemorrhagic) thrombocythemia; D50.9 Iron deficiency anemia, unspecified; J62.8 Pneumoconiosis due to other dust containing silica; E78.5 Hyperlipidemia, unspecified; G47.33 Obstructive sleep apnea (adult) (pediatric); M81.0 Age-related osteoporosis without current pathological fracture; I25.10 Atherosclerotic heart disease of native coronary artery without angina pectoris; F41.1 Generalized anxiety disorder; K21.9 Gastro-esophageal reflux disease without esophagitis; I87.2 Venous insufficiency (chronic) (peripheral); E55.9 Vitamin D deficiency, unspecified; E66.09 Other obesity due to excess calories; Z68.29 Body mass index [BMI] 29.0-29.9, adult; Z87.891 Personal history of nicotine dependence; Z95.5 Presence of coronary angioplasty implant and graft; Z98.1 Arthrodesis status; Z79.51 Long term (current) use of inhaled steroids; Z79.01 Long term (current) use of anticoagulants; Z79.899 Other long term (current) drug therapy; Z88.1 Allergy status to other antibiotic agents; Z82.3 Family history of stroke; Z83.79 Family history of other diseases of the digestive system

== ENCOUNTER 2018-02-18 15:58 | Inpatient (IN) | payer OTHER ==
[~2018-02-18] VITALS: Ht 172.7 cm; Wt 91.3 kg
--- NOTE | ~2018-02-18 | CON ---
[place], [place] REPORT OF CONSULTATION NAME: MARY MACIAS [facility] #: [id number] UNIT #: [id number] ROOM: 422 DOCTOR: EFRAIN MASON MDBELGICA BIRTHDATE: [birth year] DOS: 02/19/2018 PULMONARY CONSULTATION, EVALUATION, AND MANAGEMENT CONSULTATION REQUESTED BY: Hospitalist services. REASON FOR CONSULTATION: For possibility of acute pneumonia. HISTORY OF PRESENT ILLNESS: A 72-year-old white male patient known with history of advanced pulmonary silicosis, progressive massive pulmonary fibrosis, chronic hypoxic respiratory failure, history of congestive heart failure, diastolic dysfunction as well as a severe bronchial asthma, steroid dependency. The patient has been hospitalized frequently. He has been admitted to the hospital. The patient noticed with increased symptoms of shortness of breath occurring at home recently. He has been noted with minimal cough without any sputum expectoration. Denies symptoms of chest pain. The patient denies symptoms of wheezing. He denies any symptoms of any chest pain. He was noted with somewhat generalized weakness and fatigue. REVIEW OF SYSTEMS: CONSTITUTIONAL SYMPTOMS: Fatigue and tiredness reported. Denies symptoms of fever or chills at home. EYES: Denies any burning, redness, or tenderness. EARS, NOSE, AND THROAT SYMPTOMS: No sore throat, hoarseness, otalgia, or postnasal drainage. CARDIOVASCULAR SYSTEMS: Denies anginal pain, edema, or pain in lower extremities. GASTROINTESTINAL SYMPTOMS: No dysphagia, nausea, vomiting, diarrhea, abdominal pain, hematemesis, melena, or hematochezia. GENITOURINARY SYMPTOMS: No dysuria, suprapubic pain, or hematuria. MUSCULOSKELETAL: No acute joint pain, redness, or tenderness. SKIN: No lesions or rashes. Chronic bruising of the skin, noted later with prednisone without any lesions or rashes. CENTRAL NERVOUS SYSTEM: No dizziness, headache, diplopia, or general weakness were reported. Remaining systems were reviewed and they were noted all negative. PAST MEDICAL HISTORY: Noted with previous hospitalization in 01/2018, discharged on 01/27/2018 for medical management with acute congestive heart failure with diastolic dysfunction. PAST SURGICAL HISTORY, SOCIAL HISTORY, AND FAMILY HISTORY: Reviewed, unchanged since my consultation of 01/25/2018. The record was available in the [facility] for the reference or any other details. MEDICATIONS: The current medications administered were noted use of Lipitor, Protonix, ferrous sulfate, vitamin D, gabapentin, Xarelto 20 mg at bedtime, Mucinex, Solu-Medrol 60 mg b.i.d., Levaquin, Zosyn, vancomycin, and other medications. [place], [place] REPORT OF CONSULTATION NAME: MARY MACIAS UNIT #: [id number] ROOM: 422 DOCTOR: BELGICA ORTEGA MD BIRTHDATE: [birth year] DRUG ALLERGIES: THE PATIENT NOTED ALLERGIES TO CLINDAMYCIN CAUSING HIVES AND REDNESS. PHYSICAL EXAMINATION: GENERAL: This is a 72-year-old white male who has been noted currently without acute distress. Height of 5 feet 8 inches, weight of 200 pounds, and BMI 30.4. VITAL SIGNS: Normal temperature, respiratory rate of 18-22, heart rate 83-82, and blood pressure 118/66-111/63. The pulse oxygen saturation on 6 liter nasal cannula was noted as 97%. HEENT: Examination shows head was atraumatic. Eyes nonicterus. NECK: Supple. Zuyw-yd-erhskxrw obesity. Decreased posterior pharyngeal space. CARDIOVASCULAR SYSTEM: S1, S2 is audible. LUNGS: The patient was noted without any crackles. Breaths are noted mildly decreased. There was no wheezing heard. ABDOMEN: Soft. Moderate obesity. Bowel sounds present. EXTREMITIES: Hfyl-nf-iaytzpcm edema of lower extremities. SKIN: Scattered bruising related to the prednisone administration. There were no lesions or rashes. CENTRAL NERVOUS SYSTEM: General weakness without any focal neurologic deficit. Cranial nerves 2-12 intact. MUSCULOSKELETAL SYMPTOMS: Noted without any acute deformities. LABORATORY DATA: CBC of the patient that was done on 02/19/2018, WBC count 14.2, hemoglobin of 10.8, hematocrit 35.1, and platelet count was normal at ____. CBC of the patient that was done yesterday on admission, WBC count 17.7, hemoglobin 11.9, hematocrit 38.5, and platelet count 381,000. PT and PTT was noted as normal yesterday. CMP this morning, BUN normal, creatinine was normal. CMP on admission noted as normal BUN and creatinine, glucose 207. Lactic acid 3.1-3.9 noted intermittently. PT and PTT repeated again noted normal this morning. The chest x-ray of the patient that was done on 02/18/2018 was reviewed He does not show any new changes at this time. The patient has been noted with chronic pulmonary fibrosis changes with a mass-like lesion infiltration secondary to progressive massive pulmonary fibrosis. A metal plate was noted in the cervical spine consistent with a past history of a neck fusion. IMPRESSION: The patient will be currently admitted to the hospital. The patient was noted with possible acute congestive heart failure with exacerbation of bronchial asthma and acute chronic prednisone use. At this time, I am not sure if the patient does have any acute pneumonia clearly or not. He has been known with progressive massive pulmonary fibrosis known. PLAN OF MANAGEMENT: For further assessment of more accurate identification of any pneumonia present or not. CT scan of the chest will be obtained without contrast for further assessment. Continuation of other therapy and plan of management at this time. Continue current antibiotic until the pneumonia is excluded. The antibiotics would be adjusted based on culture if the patient can be treated for the pneumonia. Continue diuretic therapy. Titrate oxygen supplementation to maintain pulse oxygen 90% or greater. The patient was noted with acute on chronic hypoxic respiratory failure, result of the current problem [place], [place] REPORT OF CONSULTATION NAME: MARY MACIAS UNIT #: [id number] ROOM: 422 DOCTOR: EFRAIN MASON MD,BELGICA BIRTHDATE: [birth year] with possibility of congestive heart failure, diastolic dysfunction, consideration. Use of the CPAP from home or the BiPAP would be continued as well. Continue current dose of Solu-Medrol with reduction in the dose will be done hopefully tomorrow with further improvement in the overall respiratory status. BELGICA ZUNIGA MD CM:CONSTR:REPORT OF CONSULTATION 1633 02/20/18 0141 interface
--- NOTE | ~2018-02-18 | PR ---
[place], [place] PROGRESS NOTE NAME: MARY MACIAS [facility] #: [id number] UNIT #: [id number] ROOM: 422 DOCTOR: EFRAIN MASON MD,BELGICA BIRTHDATE: [birth year] DOS: 02/20/2018 SUBJECTIVE: He has been noted with reduction in symptoms of shortness of breath from yesterday. He has not been reported with any symptoms of chest pain or any hemoptysis. He was continued on diuretic therapy. Use of the BiPAP for the patient was also continued. The patient denies symptoms of hemoptysis. He denies symptoms of fever or chills. Denies any symptoms of change in the edema of the lower extremities. Denies symptoms of headache or diplopia. Remaining systems were reviewed and they were noted all negative. OBJECTIVE: VITAL SIGNS: Normal temperature, respiratory rate 20, heart rate of 87, blood pressure is 118/75. Pulse oxygen saturation on 6 L nasal cannula 98% saturation. HEENT: Examination shows head was atraumatic. Eyes nonicterus. NECK: Supple. CARDIOVASCULAR: S1, S2 audible. LUNGS: The patient was noted with scattered crackles of the lung without any wheezing. ABDOMEN: Soft, nontender. Bowel sounds present. EXTREMITIES: Still shows edema. SKIN: Visible skin, on new lesions or rashes. Noted chronic changes. CENTRAL NERVOUS SYSTEM: Cranial nerves 2-12 intact. MUSCULOSKELETAL: No acute deformities. IMAGING STUDIES: CT scan of the chest that was obtained yesterday on the patient were reviewed, does not show any evidence of consolidation, acute pneumonia, chronic pulmonary silicosis with advanced massive pulmonary fibrosis changes were noted. No acute other changes were identified. LABORATORY DATA: CBC from this morning, WBC count 18,000, hemoglobin 10.8, hematocrit 34.6, platelet count 332,000. BMP from this morning, glucose 144, BUN 19, creatinine was normal. Vancomycin trough level yesterday noted as 10.4. IMPRESSION: 1. The patient with acute congestive heart failure as a cause of shortness of breath with associated superimposed acute exacerbation of bronchial asthma, leukocytosis, most likely induced by the corticosteroids and ____ combination. 2. History of pulmonary fibrosis, remained stable. PLAN OF MANAGEMENT: Decrease the Solu-Medrol dose to 30 mg b.i.d. today. The patient was given additional dose of Lasix 40 mg x 1. Continue his ____. Discontinuation of the antibiotic of the patient to be done at this time. There was no need for antibiotics. Oral antibiotic could be used for this patient as Zithromax if there is a suspicion of acute bronchitis. All other previous therapy, plan of management of the patient to be continued. Usual treatment. [place], [place] PROGRESS NOTE NAME: MARY MACIAS Jose Miguel UNIT #: [id number] ROOM: [facility] DOCTOR: EFRAIN MASON MD,BELGICA BIRTHDATE: [birth year] BELGICA ZUNIGA MD CM:OLIVIA [id number] BELGICA MASON MD 02/21/18 0033 interface
--- NOTE | ~2018-02-18 | PR ---
[place], [place] PROGRESS NOTE NAME: MARY MACIAS [facility] #: [id number] UNIT #: [id number] ROOM: 422 DOCTOR: EFRAIN MASON MD,BELGICA BIRTHDATE: [birth year] DOS: 02/21/2018 SUBJECTIVE: The patient noted comfortable at this time without any acute distress, not reported any symptoms of chest pain, coughing. The edema lower extremity, resolving. There were no symptoms of chest pain. The patient would like to be discharged home. OBJECTIVE: VITAL SIGNS: Normal temperature, respiratory rate 20, heart rate 97, blood pressure 122/63. The pulse oxygen saturation on 6 L nasal cannula is 97% saturation. HEENT: No new change. NECK: Supple. CARDIOVASCULAR: S1, S2 audible. LUNGS: Noted without any crackles or wheezing today. ABDOMEN: Soft and obese. Bowel sounds present. EXTREMITIES: Chronic changes with edema of the ankles and the feet. LABORATORY DATA: CBC today; WBC count 15.8. Platelet count was normal. IMPRESSION: The patient with resolving acute congestive heart failure. The patient at the present time with advanced pulmonary silicosis, remains unchanged. PLAN OF THERAPY: No changes in the plan of management. The patient could be considered for discharge on oral diuretics, bronchodilators and tapering prednisone to taper to his usual dose of 50 mg daily. BELGICA ZUNIGA MD CM:PNTRANS 1419 [id number] BELGICA MASON MD 02/22/18 0049 interface
--- NOTE | ~2018-02-18 | EKG ---
[place], [place] ELECTROCARDIOGRAM REPORT NAME: MARY MACIAS UNIT #: [id number] ROOM: 422 DOCTOR: EFRAIN MASON MD,BELGICA BIRTHDATE: [birth year] DOS: 02/18/2018 TIME: 4:46 p.m. Sinus arrhythmia were noted with incomplete left bundle branch block findings. BELGICA ZUNIGA MD CM:EKGRPT:ELECTROCARDIOGRAM REPORT 1800 [id number] BELGICA MASON MD
[~2018-02-18 15:58] MED LIST changes: +DUONEB 3 MG/3 ML3 M1 INH; +LASIX20 MG PO; +PERCOCET 5-3251 EACH PO; +PROTONIX40 MG PO
[2018-02-18 16:01] VITALS: BP 125/75
[2018-02-18] MEDS ORDERED: DEMADEX20 M1 PO (16:45)
[2018-02-18 16:48] LABS: HEMATOCRIT 38.5 % (42.0-52.0); HEMOGLOBIN 11.9 g/dl (14.0-18.0); MEAN CELL VOLUME 78.3 fl (80.0-94.0); MEAN CORPUSCULAR HGB 24.2 pg (27.0-31.0); MEAN CORPUSCULAR HGB CONC 30.9 g/dl (33.0-37.0); MEAN PLATELET VOLUME 9.3 fl (9.6-12.3); PLATELET COUNT AUTOMATED 361 10*3/uL (130-400); RED BLOOD COUNT 4.92 10*6/uL (4.50-5.90); RED CELL DISTRI WIDTH 18.6 % (0-14.5); WHITE BLOOD COUNT 17.7 10*3/uL (4.8-10.8)
[2018-02-18 17:03] LABS: BILIRUBIN NEGATIVE (NEGATIVE); BLOOD TRACE-INTACT (NEGATIVE); CLARITY CLEAR (CLEAR); COLOR YELLOW (YELLOW); GLUCOSE NEGATIVE (NEGATIVE); KETONE NEGATIVE (NEGATIVE); LEUKO ESTERASE NEGATIVE (NEGATIVE); NITRITE NEGATIVE (NEGATIVE); PH 5.5 (5.0-9.0); UROBILINOGEN 0.2 E.U./dl (0.2-1.0)
[2018-02-18 17:08] LABS: ALBUMIN 2.8 gm/dl (3.1-4.5); ALKALINE PHOSPHATASE 89 U/L (45-117); BASOPHILS 1 % (0-1); BUN 18 mg/dl (7-24); CHLORIDE 98 mmol/L (98-107); CREATININE 1.02 mg/dL (0.70-1.30); LIPASE 128 U/L (73-393); SGOT/AST 20 IU/L (3-35); SGPT/ALT 20 U/L (12-78); SODIUM 133 mmol/L (136-145); TOTAL CELLS COUNTED 100 #CELLS
[2018-02-18 17:09] LABS: MICROCYTOSIS SLIGHT; OVALOCYTES FEW; PLATELET SUFFICIENCY NORMAL (NORMAL)
[2018-02-18 17:12] LABS: TROPONIN I < 0.015 ng/ml (<0.045)
[2018-02-18 17:15] LABS: ABG BASE EXCESS 1.2 mmol/L (-2.0-2.0); ABG HCO3 24.5 mmol/l (22-26); ABG O2 SATURATION 96.5 % (95-97); ARTERIAL BLOOD GAS PCO2 36.1 mmHg (35-45); ARTERIAL BLOOD GAS PH 7.447 (7.35-7.45); ARTERIAL BLOOD GAS PO2 79.3 mmHg (80-90)
[2018-02-18 17:23] LABS: WBC 0-2 wbc/hpf (0-5)
[2018-02-18 17:28] LABS: ACT PARTIAL THROMBO TIME 24.8 SECONDS (20.8-31.5); INTERNATIONAL NORM RATIO 1.1 (2.0-3.5)
[2018-02-18 18:53] VITALS: BP 125/80
[2018-02-18 20:00] VITALS: BP 138/92
[2018-02-19] VITALS: BP 126/86
[2018-02-19 06:50] LABS: BASO % 0.1 % (0.0-1.0); HEMATOCRIT 35.1 % (42.0-52.0); HEMOGLOBIN 10.8 g/dl (14.0-18.0); LYMPH # 1.2 10*3/uL (1.3-4.4); LYMPH % 8.8 % (27.0-41.0); MEAN CELL VOLUME 79.4 fl (80.0-94.0); MEAN CORPUSCULAR HGB 24.4 pg (27.0-31.0); MEAN CORPUSCULAR HGB CONC 30.8 g/dl (33.0-37.0); MEAN PLATELET VOLUME 9.6 fl (9.6-12.3); MONO # 0.3 10*3/uL (0.1-1.0); MONO % 2.2 % (3.0-9.0); NEUT # 12.3 10*3/uL (2.3-7.9); NEUT % 87.1 % (47.0-73.0); PLATELET COUNT AUTOMATED 301 10*3/uL (130-400); RED BLOOD COUNT 4.42 10*6/uL (4.50-5.90); RED CELL DISTRI WIDTH 18.2 % (0-14.5); WHITE BLOOD COUNT 14.2 10*3/uL (4.8-10.8)
[2018-02-19 06:58] LABS: ALBUMIN 2.4 gm/dl (3.1-4.5); ALKALINE PHOSPHATASE 75 U/L (45-117); BUN 19 mg/dl (7-24); CHLORIDE 101 mmol/L (98-107); CREATININE 0.97 mg/dL (0.70-1.30); PHOSPHOROUS 3.3 mg/dL (2.5-4.9); POTASSIUM 4.5 mmol/L (3.5-5.1); SGOT/AST 20 IU/L (3-35); SGPT/ALT 21 U/L (12-78); SODIUM 136 mmol/L (136-145); TOTAL PROTEIN 6.4 gm/dL (6.4-8.2)
[2018-02-19 07:10] LABS: ACT PARTIAL THROMBO TIME 35.5 SECONDS (20.8-31.5); INTERNATIONAL NORM RATIO 1.5 (2.0-3.5)
[2018-02-19 08:00] VITALS: BP 118/82
[2018-02-19 12:00] VITALS: BP 118/66
[2018-02-19 16:00] VITALS: BP 117/61
[2018-02-19 20:00] VITALS: BP 135/87
[2018-02-20] VITALS: BP 140/77
[2018-02-20 06:43] LABS: BASO % 0.1 % (0.0-1.0); HEMATOCRIT 34.6 % (42.0-52.0); HEMOGLOBIN 10.5 g/dl (14.0-18.0); LYMPH # 0.8 10*3/uL (1.3-4.4); LYMPH % 4.6 % (27.0-41.0); MEAN CELL VOLUME 79.7 fl (80.0-94.0); MEAN CORPUSCULAR HGB 24.2 pg (27.0-31.0); MEAN CORPUSCULAR HGB CONC 30.3 g/dl (33.0-37.0); MEAN PLATELET VOLUME 9.8 fl (9.6-12.3); MONO # 1.1 10*3/uL (0.1-1.0); MONO % 6.3 % (3.0-9.0); NEUT # 15.7 10*3/uL (2.3-7.9); NEUT % 87.4 % (47.0-73.0); PLATELET COUNT AUTOMATED 332 10*3/uL (130-400); RED BLOOD COUNT 4.34 10*6/uL (4.50-5.90); RED CELL DISTRI WIDTH 18.2 % (0-14.5)
[2018-02-20 06:53] LABS: BUN 19 mg/dl (7-24); CHLORIDE 107 mmol/L (98-107); CREATININE 0.97 mg/dL (0.70-1.30); POTASSIUM 4.3 mmol/L (3.5-5.1); SODIUM 141 mmol/L (136-145)
[2018-02-20 08:00] VITALS: BP 118/75
[2018-02-20] MEDS ORDERED: ALDACTONE25 M1 PO (10:39)
[2018-02-20 12:00] VITALS: BP 129/63
[2018-02-20 16:00] VITALS: BP 132/76
[2018-02-20 20:00] VITALS: BP 138/81
[2018-02-21] VITALS: BP 138/76
[2018-02-21 06:58] LABS: BASO % 0.1 % (0.0-1.0); HEMATOCRIT 36.3 % (42.0-52.0); HEMOGLOBIN 10.9 g/dl (14.0-18.0); LYMPH # 1.4 10*3/uL (1.3-4.4); LYMPH % 8.6 % (27.0-41.0); MEAN CELL VOLUME 80.1 fl (80.0-94.0); MEAN CORPUSCULAR HGB 24.1 pg (27.0-31.0); MEAN PLATELET VOLUME 9.7 fl (9.6-12.3); MONO # 1.1 10*3/uL (0.1-1.0); MONO % 6.9 % (3.0-9.0); NEUT # 13.1 10*3/uL (2.3-7.9); NEUT % 83.1 % (47.0-73.0); PLATELET COUNT AUTOMATED 359 10*3/uL (130-400); RED BLOOD COUNT 4.53 10*6/uL (4.50-5.90); RED CELL DISTRI WIDTH 18.6 % (0-14.5); WHITE BLOOD COUNT 15.8 10*3/uL (4.8-10.8)
[2018-02-21 07:03] LABS: BUN 23 mg/dl (7-24); CHLORIDE 104 mmol/L (98-107); CREATININE 1.12 mg/dL (0.70-1.30); SODIUM 141 mmol/L (136-145)
[2018-02-21 08:00] VITALS: BP 125/71
[2018-02-21 12:00] VITALS: BP 124/63
[2018-02-21] MEDS ORDERED: PREDNISONE10 MG PO (13:41)
== END 2018-02-21 14:08 | disposition home or self-care (01) | DRG 871 ==
LOC: ED 15:58 → EDHOLD 17:58 → 4E 17:58
PROVIDERS: Family Medicine; Physician Assistant
DX: A41.9 Sepsis, unspecified organism (principal); J96.21 Acute and chronic respiratory failure with hypoxia; I50.33 Acute on chronic diastolic (congestive) heart failure; E44.0 Moderate protein-calorie malnutrition; E11.42 Type 2 diabetes mellitus with diabetic polyneuropathy; E11.65 Type 2 diabetes mellitus with hyperglycemia; E83.41 Hypermagnesemia; I27.81 Cor pulmonale (chronic); I48.2 Chronic atrial fibrillation; E87.1 Hypo-osmolality and hyponatremia; I50.32 Chronic diastolic (congestive) heart failure; J45.901 Unspecified asthma with (acute) exacerbation; R65.20 Severe sepsis without septic shock; I11.0 Hypertensive heart disease with heart failure; J84.10 Pulmonary fibrosis, unspecified; D50.9 Iron deficiency anemia, unspecified; G89.29 Other chronic pain; J62.8 Pneumoconiosis due to other dust containing silica; M81.0 Age-related osteoporosis without current pathological fracture; I25.10 Atherosclerotic heart disease of native coronary artery without angina pectoris; E78.00 Pure hypercholesterolemia, unspecified; F41.1 Generalized anxiety disorder; E66.09 Other obesity due to excess calories; K21.9 Gastro-esophageal reflux disease without esophagitis; M54.9 Dorsalgia, unspecified; E55.9 Vitamin D deficiency, unspecified; I44.7 Left bundle-branch block, unspecified; T38.0X5A Adverse effect of glucocorticoids and synthetic analogues, initial encounter; G47.33 Obstructive sleep apnea (adult) (pediatric); Z99.81 Dependence on supplemental oxygen; Z68.30 Body mass index [BMI] 30.0-30.9, adult; Z87.891 Personal history of nicotine dependence; Z88.1 Allergy status to other antibiotic agents; Z79.899 Other long term (current) drug therapy; Z98.1 Arthrodesis status; Z95.818 Presence of other cardiac implants and grafts; Z98.41 Cataract extraction status, right eye; Z82.3 Family history of stroke; Z83.79 Family history of other diseases of the digestive system; Y92.89 Other specified places as the place of occurrence of the external cause

== ENCOUNTER 2018-04-14 14:55 | Inpatient (IN) | payer OTHER ==
[~2018-04-14] VITALS: Ht 172.7 cm; Wt 90.3 kg
--- NOTE | ~2018-04-14 | PR ---
[place], [place] PROGRESS NOTE NAME: MARY MACIAS [facility] #: [id number] UNIT #: [id number] ROOM: 428 DOCTOR: EFRAIN MASON MD,BELGICA BIRTHDATE: [birth year] DOS: 04/24/2018 SUBJECTIVE: The patient was noted comfortable at this time. Coughing has been improving. There are symptoms of chest pain, hemoptysis, or abdominal pain. OBJECTIVE: VITAL SIGNS: Normal temperature, respiratory rate 20, heart rate 83, blood pressure 99/50 earlier noted as 124/67. The pulse oxygen saturation was recorded as 95% on 5 L nasal cannula. HEENT: Examination shows head was atraumatic. Eyes nonicterus. NECK: Supple. CARDIOVASCULAR: S1, S2 is audible. LUNGS: The patient noted without any wheezing or crackles. ABDOMEN: Soft, nontender. Bowel sounds present. EXTREMITIES: Without any acute edema. IMPRESSION: The patient with progressive resolution of acute exacerbation of bronchial asthma. Resolution of wheezing. Chest x-ray was also done this morning shows continued improvement in the pulmonary infiltration in the lower lung. Chronic silicosis findings noted in the lungs. PLAN OF MANAGEMENT: The patient could be discharged on tapering dose of prednisone and to go to his baseline, prednisone 50 mg daily. Continue oxygen supplementation, bronchodilators, BiPAP/CPAP from home use as well. BELGICA ZUNIGA MD CM:PNTRANS [phone] BELGICA MASON MD 04/24/182049 interface
--- NOTE | ~2018-04-14 | PROC NOTE ---
[place], [place] PROCEDURE NOTE NAME: MARY MACIAS [facility] #: [id number] UNIT #: [id number] ROOM: 428 DOCTOR: EFRAIN MASON MD,BELGICA BIRTHDATE: [birth year] DOS: 04/20/2018 PREOPERATIVE DIAGNOSES: Bilateral basilar infiltration in the lungs, acute pneumonia. POSTOPERATIVE DIAGNOSES: Acute pneumonia involving the right lower lobe and mucus impaction of major airways. Evidence of chronic carbonaceous material deposited in the submucosa noted a chronic finding. There were no endobronchial obstructive lesions. DESCRIPTION OF PROCEDURE: Informed consent obtained from the patient. He was brought to the OR and placed in supine position. Conscious sedation administered by the Anesthesia Department after that. The bronchoscope advanced to airway into laryngeal area. Epiglottis and vocal cords were seen. The bronchoscope was advanced to vocal cord and tracheal lumen. Tracheal lumen noted with moderate amount of thick mucus secretion and yellow secretion as well, which was suctioned at brigid level. Moderate impaction of the mucus noted in the right lower lobe endobronchial tree. Significant purulent material noted in the right and left lower lobe bronchial openings. The remaining endobronchial tree were noted partially impacted with a thick mucus. Secretions suctioned out clear with normal saline wash, sent for culture. There were no complications noted during or after procedure. Procedure in general was well tolerated by the patient. Postoperative finding will be discussed with the patient's family member and the patient as well later on. At this time, no changes in the treatment will be necessary. The patient will continue current treatment, plan of management. Repeat another chest x-ray in the morning to reassess the improvement of the bilateral pulmonary infiltration, probably could be resulting from atelectasis with the mucus impaction from tomorrow. BELGICA ZUNIGA MD CM:PROCNOTE:PROCEDURE NOTE [id number] BELGICA MASON MD
--- NOTE | ~2018-04-14 | CON ---
[place], [place] REPORT OF CONSULTATION NAME: MARY MACIAS [facility] #: [id number] UNIT #: [id number] ROOM: [facility] DOCTOR: BELGICA ORTEGA MD BIRTHDATE: [birth year] DOS: 04/15/2018 PULMONARY CONSULTATION, EVALUATION, AND MANAGEMENT CONSULTATION REQUESTED BY: Hospitalist service. REASON FOR CONSULTATION: Assessment of current respiratory failure and other issues. HISTORY OF PRESENT ILLNESS: This is a 72-year-old white male who has been admitted under the care of the hospitalist on 04/15/2018. The patient was noted with symptoms of increased shortness of breath, which has been occurring at home. Shortness of breath was noted with progressive edema of the lower extremities. The patient denies symptoms of chest pain. He has been noted with mild intermittent cough without any sputum expectoration. Denies symptoms of chest pain or any hemoptysis. The patient denies symptoms of active wheezing. He has been admitted to the hospital, had a CTA of the chest done as well. The patient was given intravenous antibiotics in the Emergency Room and later started on 3 different broad spectrum intravenous antibiotics. She has been given diuretic with Lasix ordered yesterday. He has been noted with the reduction of symptoms of shortness of breath partially. Denies symptoms of hemoptysis. Denies any symptoms of chest pain at this time. REVIEW OF SYSTEMS: CONSTITUTIONAL: Does complain of fatigue and tiredness at this time. Denies symptoms of fever or chills. EYES: Denies any burning, redness, or tenderness. EARS, NOSE, THROAT SYMPTOMS: Denies sore throat, hoarseness, otalgia, postnasal drainage. CARDIOVASCULAR: Denies angina pain, edema or pain of lower extremities. GASTROINTESTINAL: Denies dysphagia, nausea, vomiting, diarrhea, abdominal pain, hematemesis, melena, dysphagia, or abnormal weight loss. SKIN: Denies abnormal lesions or rashes. History of chronic intermittent bruising of the skin noted, medication related due to use of high dose of prednisone. GENITOURINARY SYMPTOMS: No dysuria, suprapubic pain, or hematuria. MUSCULOSKELETAL: Denies any acute joint pain, redness or tenderness or deformities. CENTRAL NERVOUS SYSTEM: No dizziness, headache, diplopia, syncopal episodes. General weakness was reported. PAST MEDICAL HISTORY: Known with: 1. 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 2. Chronic hypoxic respiratory failure, use of oxygen about 5 liters nasal cannula and sometimes at 6 liters. 3. The patient with uncomplicated severe persistent bronchial asthma. 4. Chronic steroid dependency, use of prednisone 15 mg daily. 5. Obstructive sleep apnea disorder treated with the BiPAP and acute coronary artery disease. [place], [place] REPORT OF CONSULTATION NAME: MARY MACIAS UNIT #: [id number] ROOM: [facility] DOCTOR: ARGELIA ORTEGA MDM BIRTHDATE: [birth year] 6. Essential hypertension. 7. Congestive heart failure with diastolic dysfunction. 8. Chronic mild obesity. 9. Atrial fibrillation. 10. Allergic rhinitis. PAST SURGICAL HISTORY: 1. Cervical fusion of the spine. 2. Carpal tunnel surgery. 3. Bilateral cataract extraction, lens implantation. 4. Therapeutic bronchoscopy. 5. Cardiac catheterization and coronary artery stent insertion. SOCIAL HISTORY: The patient is and lives at home. Denies history of alcohol use, illicit drug use. Tobacco use noted since teenager, a pack of cigarettes per day until 2013. 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 FAMILY HISTORY: The patient's father at 71 due to complication of acute stroke. Mother at 69 due to complication of liver disease. MEDICATIONS: Administered by the patient, noted use of: Solu-Medrol 60 mg b.i.d., Aldactone 12.5 mg daily, gabapentin 600 mg p.o. b.i.d., Protonix 40 mg daily, gabapentin 1800 mg at bedtime, Tramadol 50 mg p.o. b.i.d., Lipitor 40 mg daily, Xarelto 20 mg at bedtime, Mucinex 1200 mg p.o. b.i.d., Lasix 40 mg IV b.i.d., DuoNeb q. 4 hours, Xanax 0.25 mg t.i.d. p.r.n. for anxiety, IV Levaquin 750 mg, IV vancomycin dose per pharmacy b.i.d., IV Zosyn 3.375 g q. 6 hours and others. DRUG ALLERGIES: NOTED ALLERGY TO CLINDAMYCIN CAUSING SKIN RASH AND ITCHING. PHYSICAL EXAMINATION: GENERAL: This is a 72-year-old white male, currently noted comfortable at this time, resting on the bed. VITAL SIGNS: Height of 5 feet 8 inches, weight of 90 kg, BMI 30.2 recorded. Vital signs showed the temperature noted 100.2 degrees Fahrenheit. The patient has a T-max. Otherwise, normal temperature, respiratory rate of 18-26, heart rate of 96-120 on admission, blood pressure 104/64-102/88. Pulse oxygen saturation with Venturi mask was 97%, on 40% BiPAP 97%, this morning on 5 liter nasal cannula 94% saturation. Intake of 1030, output 2550, he has negative fluid balance of 1.520 liters. HEENT: Examination shows [id number] obesity. Head was atraumatic. Eyes nonicterus. NECK: Supple. Oral mucosa is moist. CARDIOVASCULAR: S1, S2 audible. LUNGS: The patient was noted with scattered crackles. No wheezing. ABDOMEN: Soft with moderate obesity, bowel sounds present without any tenderness. EXTREMITIES: Shows chronic changes as well as some mild to moderate edema of bilateral lower extremities, greater on the left than the right side. [place], [place] REPORT OF CONSULTATION NAME: MARY MACIAS UNIT #: [id number] ROOM: [facility] DOCTOR: EFRAIN MASON MD,[facility] BIRTHDATE: [birth year] SKIN: Visible skin, dryness of skin of the lower extremities, multiple areas of bruising of the skin related to his chronic long-term prednisone use. CENTRAL NERVOUS SYSTEM: Cranial nerves 2-12 intact. No focal deficit. MUSCULOSKELETAL: No deformities. LABORATORY DATA: Lactic acid yesterday noted 2.5. PT/PTT yesterday noted INR 1.2, PTT normal. CMP of 04/14/2018, normal BUN and creatinine, glucose 119. The CBC from 04/14/2018, WBC count 20.2, hemoglobin 11.6, hematocrit 36.8, platelet count 466,000, 86% segmented neutrophils. PT/PTT this morning INR 1.5, normal PTT. CMP this morning, BUN normal, creatinine normal, glucose 190. Albumin 2.3. CBC, WBC count 13.0, hemoglobin 10.8, hematocrit 36.8, platelet count 463,000, 89% segmented neutrophils. Troponin noted as mildly elevated, maximum troponin of the patient was noted as 0.249 yesterday. Follow up lactic acid was 1.9. IMAGING STUDIES: Chest x-ray noted with diffuse bilateral infiltration noted previously, unable to assess any new changes except the increased infiltration that was suspected in the lower lungs bilaterally. CTA of the chest that was done on admission of the patient was personally reviewed, does not show evidence of pulmonary embolism, evidence of progressive massive pulmonary fibrotic changes noted in the lungs bilaterally with acute infiltration noted in the lower lungs bilaterally. IMPRESSION: 1. The patient who has been currently noted with advanced progressive massive pulmonary fibrosis with silicosis, currently presented to the hospital, admitted in acute on chronic severe hypoxic respiratory failure as a result of acute pneumonia and acute congestive heart failure with diastolic dysfunction and peripheral edema. The organism to be suspected is gram-negative infection because of long-term prednisone use of the patient and the gram-positive infection to be considered as well, superimposed. There was no past history of tuberculosis noted. History of silicosis with past bronchoscopy, bronchial washing cultures were noted negative for any acid fast isolation. 2. The patient with severe debility secondary to that. 3. The patient with acute exacerbation of bronchial asthma would be also considered. PLAN OF MANAGEMENT: Decrease the Solu-Medrol dose to 30 mg b.i.d. Discontinue Levaquin, discontinue the IV Zosyn. Vancomycin is the primary antibiotic with further adjustments in the antibiotic will be done based on culture results. Order the sputum for Gram stain and culture. Monitor blood culture results. Monitor chest x-ray periodically. Use of BiPAP at setting of 16/10 for this patient at nighttime and p.r.n. during the day for any respiratory distress. Currently, titrate oxygen supplementation at other times to maintain a saturation of oxygen 92% or greater. Other supportive therapy, plan of management, additional treatment changes will be made based on progression of the illness. Thanks for allowing me to participate in the care of this patient. [place], [place] REPORT OF CONSULTATION NAME: MARY MACIAS UNIT #: [id number] ROOM: [facility] DOCTOR: EFRAIN MASON MD,[facility] BIRTHDATE: [birth year] BELGICA ZUNIGA MD CM:CONSTR:REPORT OF CONSULTATION 1315 04/16/18 0055 interface
--- NOTE | ~2018-04-14 | PR ---
[place], [place] PROGRESS NOTE [id number] UNIT #: [id number] ROOM: 428 DOCTOR: BELGICA ORTEGA MD BIRTHDATE: [birth year] DOS: 04/22/2018 PULMONARY PROGRESS NOTE SUBJECTIVE: The patient noted comfortable at this time complaining of diarrhea. Respiratory symptoms have been improving reduction in symptoms of coughing and shortness of breath progressively. There were no symptoms of chest pain or wheezing reported. OBJECTIVE: VITAL SIGNS: Normal temperature, respiratory rate 20, heart rate 70, blood pressure of 90/71. Pulse oxygen saturation of the patient recorded on 5 liters nasal cannula 96% saturation. HEENT: Examination shows head was atraumatic. Eyes: No icterus. NECK: Supple. CARDIOVASCULAR: S1, S2 is audible. LUNGS: The patient was noted without any wheezing or crackles at the present time. ABDOMEN: Soft, nontender. Bowel sounds present. EXTREMITIES: The patient noted chronic changes. LABORATORY DATA: Culture of the bronchial washing noted light growth of normal gordon. IMPRESSION: 1. Resolving acute pneumonia with exacerbation of bronchial asthma and chronic dependence of the corticosteroids. 2. Obstructive sleep apnea disorder. PLAN OF MANAGEMENT: Continue medical management of diarrhea. Continuation of the bronchodilators, oxygen supplementation, antibiotics. Other supportive plan of management of the patient previously will be continued. Continue current dose of corticosteroids just tomorrow and possibly switching to 40 mg of Solu-Medrol daily. Other plan of treatment. [place], [place] PROGRESS NOTE NAME: MARY MACIAS Jose Miguel [facility] [id number] UNIT #: [id number] ROOM: 428 DOCTOR: BELGICA ORTEGA MD BIRTHDATE: [birth year] BELGICA ZUNIGA MD CM:PNTRANS 1113 BELGICA MASON MD 04/23/18221 interface
--- NOTE | ~2018-04-14 | PR ---
[place], [place] PROGRESS NOTE NAME: MARY MACIAS [facility] #: [id number] UNIT #: [id number] ROOM: 428 DOCTOR: EFRAIN MASON MD,BELGICA BIRTHDATE: [birth year] DOS: 04/17/2018 SUBJECTIVE: The patient was noted much better. The patient this morning had reduction in symptoms of shortness breath and wheezing. He was continued on the bronchodilators, oxygen supplementation, other treatment. He used the BiPAP last night, using oxygen supplementation during the day via nasal cannula. Denies symptoms of chest pain. The coughing has been noted partially decreased from yesterday's examination. There were symptoms of abdominal pain. The patient denies any acute joint pain. Edema of the lower extremities is noted decreased. There was no pain in the extremities was reported. There were no symptoms of headache or diplopia. Remaining systems were reviewed. They were noted all negative. OBJECTIVE: GENERAL: The patient was currently comfortably sitting on the chair, using oxygen supplementation via nasal cannula. VITAL SIGNS: The patient showed normal temperature, respiratory rate 21, heart rate 77, blood pressure 122/71. Pulse ox saturation on 5 liters nasal cannula 93% saturation. HEENT: Moderate obesity. Head was atraumatic. Eyes nonicterus. NECK: Supple. CARDIOVASCULAR: S1, S2 are audible. LUNGS: The patient was noted with moderately decreased breath sounds. ABDOMEN: Soft. Mild to moderate obesity. Bowel sounds present. EXTREMITIES: Still shows edema, but decreased from previously. SKIN: Visible skin, no lesions or rashes. Bruising of the skin, which has been noted previously. MUSCULOSKELETAL: No deformities. CENTRAL NERVOUS SYSTEM: Intact. LABORATORY DATA: CBC today, WBC count 17,000, hemoglobin 10, hematocrit 33.4, platelet count 425,000. CMP of the patient from 04/17/2018, BUN normal, creatinine was normal. Albumin of 2.5. IMPRESSION: 1. The patient who has been noted with current acute pneumonia involving the lower lungs, mostly with a known history of progressive massive pulmonary fibrosis related to advanced silicosis of the lung. 2. The patient with acute on chronic hypoxic respiratory failure. 3. Leukocytosis related to the current steroids and the infection. 4. The patient with acute congestive heart failure, diastolic dysfunction. PLAN OF TREATMENT: The patient will be continued on diuretic therapy and monitoring of the urinary output and monitoring edema. Continue current dose of Solu-Medrol at this time. Continuation of bronchodilators, oxygen supplementation. Medical management of hyperglycemia. Continuation of the other previous therapy, plan of management. No changes in antibiotic of the patient at this time will be necessary. [place], [place] PROGRESS NOTE NAME: MARY MACIAS UNIT #: [id number] ROOM: [facility] DOCTOR: BELGICA ORTEGA MD BIRTHDATE: [birth year] BELGICA ZUNIGA MD CM:PNTRANS [id number] BELGICA MASON MD 04/17/18 8447 interface
--- NOTE | ~2018-04-14 | PR ---
[place], [place] PROGRESS NOTE NAME: MARY MACIAS [facility] #: [id number] UNIT #: [id number] ROOM: 428 DOCTOR: BELGICA ORTEGA MD BIRTHDATE: [birth year] DOS: 04/19/2018 SUBJECTIVE: The patient remains on continuous wheezing, cough remains mostly nonproductive. Has symptoms of chest pain. He has been noted some sputum expectoration that only occurred this morning. He denies symptoms of chest pain. The shortness of breath noted with mild exertion at rest as well. The patient denies any abdominal pain. The edema of lower extremity continued gradually resolved. There was no skin itching for the patient or rashes. There were symptoms of headache. Remaining systems were reviewed, they were noted all negative. OBJECTIVE: VITAL SIGNS: The patient was noted normal temperature, respiratory rate 20, heart rate 75, blood pressure is 149/83. The pulse oxygen saturation was recorded as 5 liters nasal cannula 95% saturation. HEENT: Examination shows head was atraumatic. Eyes: No icterus. NECK: Supple. CARDIOVASCULAR: S1, S2 is audible. LUNGS: Diminished breath sounds noted with moderate decreased breath sounds in the lungs bilaterally. Diffuse expiratory wheezing. Crackles in the lung noted scattered. ABDOMEN: Soft, nontender. EXTREMITIES: The patient was noted with mild edema of the lower extremities. SKIN: Noted with no new changes. MUSCULOSKELETAL: Without deformities. CENTRAL NERVOUS SYSTEM: Noted intact. LABORATORY DATA: CMP, glucose 133, BUN normal, creatinine was normal. CBC, WBC 12.9, hemoglobin 10.4, hematocrit 35.0, platelet count 420,000. Chest x-ray that was done PA lateral view was noted with pulmonary infiltration with previous changes of advanced pulmonary massive fibrosis. In addition to basilar infiltration remains persistent. PLAN OF MANAGEMENT: No changes in plan of care for patient at this time. Continue current therapy plan of management. Usual care. Other supportive plan of care as previously. The patient was scheduled for bronchoscopy will be done tomorrow morning if persistent wheezing not resolving with intermittent and nonproductive cough as well. [place], [place] PROGRESS NOTE NAME: MARY MACIAS [facility] #: [id number] UNIT #: [id number] ROOM: 428 DOCTOR: BELGICA ORTEGA MD BIRTHDATE: [birth year] BELGICA ZUNIGA MD CM:PNTRANS [id number] 0049 BELGICA MASON MD 04/20/18 0048 interface
--- NOTE | ~2018-04-14 | PR ---
[place], [place] PROGRESS NOTE [facility]: [id number] UNIT #: [id number] ROOM: 428 DOCTOR: BELGICA ORTEGA MD BIRTHDATE: [birth year] DOS: 04/21/2018 SUBJECTIVE: He has bronchoscopy done yesterday. Reduction to cough is reported. Denies any symptoms of chest pain or any hemoptysis. The patient denies symptoms of nausea or vomiting. Shortness of breath for the patient was also noted, but noted partially decreased. OBJECTIVE: VITAL SIGNS: For the patient which are recorded showed the temperature noted as normal, respiratory rate 20, heart rate 77, blood pressure 130/68. Pulse oxygen saturation recorded as 95% on 5 liter nasal cannula. HEENT: Examination shows head was atraumatic. Eyes nonicterus. CARDIOVASCULAR: S1, S2 is audible. LUNGS: The patient was noted with crackles scattered, mild to moderate expiratory wheezing. ABDOMEN: Soft, nontender, bowel sounds present. EXTREMITIES: No new changes. LABORATORY DATA: The patient's culture of the bronchial washing normal gordon today. Gram stain bronchial washing, many white blood cell, few epithelial cells, rare gram-positive cocci in pairs. Chest x-ray that were done this morning shows evidence of pulmonary silicosis, patient noted complicated at the present time. The chest x-ray shows partial improvement in aeration of the lungs were noted bilaterally in the lower lungs, more on the left than the right side. IMPRESSION: 1. Advanced pulmonary massive fibrosis related to the advanced silicosis of the lung with acute on chronic hypoxic respiratory failure. 2. Acute bilateral pneumonia, possible superimposed atelectasis would be considered as well. 3. The patient with history of obstructive sleep apnea disorder. PLAN OF TREATMENT: Monitor culture results. Continue bronchodilators, oxygen supplementation, diuretic therapy, plan of management as in progress. No additional change in treatment at this time will be necessary. Change in treatment will be ordered based on the progression of the illness. [place], [place] PROGRESS NOTE NAME: MARY MACIAS UNIT #: [id number] ROOM: 428 DOCTOR: BELGICA ORTEGA MD BIRTHDATE: [birth year] BELGICA ZUNIGA MD CM:PNCHAD [id number] BELGICA MASON MD 04/21/18 2228 interface
--- NOTE | ~2018-04-14 | PR ---
[place], [place] PROGRESS NOTE NAME: MARY MACIAS [facility] #: [id number] UNIT #: [id number] ROOM: 428 DOCTOR: BIMAL RING,JANIS BIRTHDATE: [birth year] DOS: 04/17/2018 CARDIOLOGY FOLLOWUP VISIT NOTE REASON FOR VISIT: Elevated troponin and paroxysmal atrial fibrillation. SUBJECTIVE: The patient is sitting in the chair in no acute distress. Denies any chest pain or shortness of breath. He is feeling better. No palpitation, no PND, no orthopnea. No nausea, vomiting, no hemoptysis. No bladder or bowel symptoms, no neurologic symptoms. RHYTHM STRIPS: The patient in sinus rhythm with supraventricular ectopy. PHYSICAL EXAMINATION: VITAL SIGNS: Blood pressure 122/71, pulse 77, respirations 21, weight 90.2 kilos, BMI 30. GENERAL: Alert, comfortable, in no acute distress. HEENT: Pupils are round and equal. No jaundice. Tongue was moist. Pharynx was clear. NECK: Supple, no distended neck veins, no carotid bruit. CHEST: Symmetrical and nontender. LUNGS: A few scattered rhonchi, but good air entry bilaterally. HEART: Slightly irregular. No S3, no palpable thrills. ABDOMEN: Benign, nontender. Bowel sounds normal. EXTREMITIES: Showed trace to 1+ edema as well as 1+ pedal edema. Distal pulses are fair. SKIN: Warm and dry. No cyanosis, no clubbing. RECTAL: Deferred. GENITOURINARY: Deferred. NEUROLOGIC: The patient is alert, oriented. No focal neurologic deficit. Diagnostic tests, labs and rhythm strips reviewed. IMPRESSION: 1. Borderline elevation of troponin, probably due to type 2 non-ST elevation myocardial infarction because of his hypoxemia and sepsis. 2. History of paroxysmal atrial fibrillation. The patient was in sinus rhythm currently with premature atrial contractions, continuing Xarelto. 3. Severe chronic obstructive pulmonary disease with home oxygen. 4. Pneumonia. 5. Hypertension, stable. 6. History of coronary artery disease, status post stents in the past. 7. History of cerebrovascular accident. 8. Anemia. RECOMMENDATIONS: 1. Continue current cardiac medications. 2. Cardiology will see as needed during the weekend. 3. Add low-dose beta blockers, metoprolol if his blood pressures and pulmonary condition tolerates. [place], [place] PROGRESS NOTE NAME: MARY MACIAS UNIT #: [id number] ROOM: 428 DOCTOR: BIMAL RING,JANIS BIRTHDATE: [birth year] 4. Discussed with his who is at bedside. Again, Cardiology will see as needed during the weekend. JANIS WALLIS MD CM:PNTRANS [id number] JANIS WALLIS MD 04/18/18 0225 interface
--- NOTE | ~2018-04-14 | CON ---
[place], [place] REPORT OF CONSULTATION NAME: MARY MACIAS [facility] #: [id number] UNIT #: [id number] ROOM: [facility] DOCTOR: ALIZA SILVEIRA MD BIRTHDATE: [birth year] DOS: 04/15/2018 CARDIOLOGY CONSULTATION REASON FOR CONSULTATION: Elevated troponin. 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 He has had chronic respiratory failure and cor pulmonale. He is also known to have coronary artery disease. He states that he had a catheterization with stent many years ago. Approximately 1 year ago, he has been evaluated for lung transplant at the [facility] in [place]. Part of the evaluation included catheterization, which demonstrated the need for 3 additional stents. The patient states that he has not had any chest pain and to his knowledge has not had a heart attack. He does have chronic respiratory failure and he is on home oxygen and steroids continuously. He presents to the hospital on this occasion because of worsening shortness of breath, which began a few hours prior to his arrival in the Emergency Room. On arrival, he was on CPAP and supplemental oxygen, but was still hypoxemic. He denied any chest pain. He was treated with bronchodilators and steroids and states that he now feels better. Chest x-ray does show a left upper lobe pneumonia along with a progressive right middle lobe infiltrate suspicious for malignancy. The patient's laboratory studies do show elevated troponins. The initial troponin level was 0.116 with followup troponins being 0.249 and 0.234. Because of this, a Cardiology consultation was requested. PAST MEDICAL HISTORY: Includes, 1. Severe obstructive lung disease, on home oxygen therapy. 2. Silicosis. 3. Chronic cor pulmonale. 4. History of diastolic heart failure. 5. Paroxysmal atrial fibrillation. 6. Chronic respiratory failure with hypoxemia. 7. Coronary artery disease with history of remote single stent. The patient states that a year or so ago, he had a catheterization as part of evaluation for a lung transplant and received 3 more stents. 8. Gastroesophageal reflux disease. 9. Hyperlipidemia. 10. Hypertension. 11. Sleep apnea syndrome. 12. History of cervical spinal fusion. MEDICATIONS PRIOR TO ADMISSION: Albuterol 1 puff b.i.d. p.r.n., DuoNeb 3 mL by nebulizer q.i.d., alprazolam 0.25 mg b.i.d., atorvastatin 40 mg at bedtime, calcium carbonate with vitamin D at bedtime, vitamin D 1000 units daily, iron sulfate 65 mg daily, gabapentin 600 mg morning and afternoon with 1800 mg in the evening, Percocet 5/325 b.i.d., pantoprazole 40 mg daily, prednisone 15 mg [place], [place] REPORT OF CONSULTATION NAME: MARY MACIAS UNIT #: [id number] ROOM: [facility] DOCTOR: ALIZA SILVEIRA MD BIRTHDATE: [birth year] daily, rivaroxaban 20 mg at bedtime, spironolactone 12.5 mg daily, torsemide 40 mg daily, tramadol 50 mg b.i.d., Prolia 60 mg every 6 months. ALLERGIES: The patient lists allergies to CLINDAMYCIN. FAMILY HISTORY: The patient's mother of a stroke and his father of liver disease, both in their 60s. REVIEW OF SYSTEMS: The patient denies diplopia or loss of vision. He denies focal weakness. He does have dyspnea with minimal exertion and chronic dyspnea at rest. He denies any chest pain or palpitations. He denies lightheadedness or syncope. He denies cough or hemoptysis. He denies fevers or chills. He denies bleeding from any site and specifically denies hemoptysis or hematemesis. He denies nausea or vomiting. He denies change in bowel or bladder habits. He denies blood in his stools or urine. He does have chronic swelling of his feet. He denies polydipsia or polyuria. He denies heat or cold intolerance. The remainder of the review of systems is negative except as noted above. SOCIAL HISTORY: The patient smoked briefly 55 years ago. He does not drink any alcohol products. PHYSICAL EXAMINATION: GENERAL: The patient is an overweight white male who is awake, alert and oriented. VITAL SIGNS: Pulse is 83 and regular with frequent premature beats. Blood pressure is 112/59. He is afebrile. He weighs 90.3 kg and has a body mass index of 30.3. HEENT: Normocephalic and atraumatic. Extraocular muscles are intact. Sclerae are clear. Pupils equal, round and react to light. The oral mucosa is moist. Tongue is midline. NECK: Supple. He has no jugular distention. Carotids are full and I heard no bruits. He had no neck or supraclavicular masses and no thyromegaly. LUNGS: Respirations are labored at rest and he is slightly tachypneic. He has markedly decreased breath sounds bilaterally with crackles in the mid lung lucia bilaterally as well. He has no presacral edema or chest wall tenderness. HEART: Has a regular rhythm with frequent premature beats. He has a fourth heart sound, but no third heart sound or significant murmur. The PMI is not displaced. There is no precordial heave, lift or thrill. ABDOMEN: Soft and normally active without masses, organomegaly or bruits. EXTREMITIES: Showed 2-3+ edema bilaterally, worse on the left. I could not feel pedal pulses. LABORATORY DATA: His electrocardiogram shows sinus tachycardia with a left anterior fascicular block and poor precordial R-wave progression. There are PACs noted. Troponin levels are mildly elevated noted above with a peak troponin of 0.249. Chest x-ray shows a left upper lobe pneumonia with a right middle lobe progressive infiltrate consistent with malignancy. CAT scan confirms these [place], [place] REPORT OF CONSULTATION NAME: MARY MACIAS UNIT #: [id number] ROOM: [facility] DOCTOR: ALIZA SILVEIRA MD BIRTHDATE: [birth year] findings. IMPRESSIONS: 1. Admission for progressive respiratory failure with left upper lobe pneumonia and right middle lobe progressive infiltrate, which may represent malignancy. 2. 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 3. Paroxysmal atrial fibrillation. 4. CHADS-VASc score of 5, indicating a 6.7% yearly risk of stroke without anticoagulation. The patient is on rivaroxaban. 5. History of hypertension. 6. History of hyperlipidemia. 7. History of coronary artery disease, status post 4 stents in the past. 8. History of stroke. PLAN: The etiology of the patient's troponin elevation is not known. He certainly has a history of coronary artery disease and this could cause an elevation of troponin with a non-ST elevation FL. On the other hand, this may represent a type 2 myocardial infarction due to hypoxemia, pneumonia, etc. The patient has severe lung disease and this makes him a very poor candidate for any invasive evaluation. In addition, he may have a new right middle lobe malignancy. For now, we will continue to treat him medically and follow further troponin levels. We will obtain an echocardiogram. Our plan, however, is to very conservative in his evaluation and management. [facility] [place] Cardiology and I thank the hospitalist service for asking our advice regarding the patient's care. ALIZA SILVEIRA MD CM:CONSTR:REPORT OF CONSULTATION 1704 04/16/18 0039 interface
--- NOTE | ~2018-04-14 | PR ---
[place], [place] PROGRESS NOTE NAME: MARY MACIAS [facility] #: [id number] UNIT #: [id number] ROOM: 428 DOCTOR: EFRAIN MASON MD,BELGICA BIRTHDATE: [birth year] DOS: 04/18/2018 PULMONARY PROGRESS NOTE SUBJECTIVE: The patient has been transferred to telemetry floor yesterday from the intensive care unit. He has been sitting on the side of bed this morning noted excessive coughing intermittently without any sputum expectoration. It was also causing increased shortness of breath. The patient has been using his own BiPAP from home since yesterday. He has not been noted symptoms of chest pain or any hemoptysis. Denies abdominal pain. Edema of lower extremities continued to be resolving progressively and improving. He denies symptoms of fever or chills. He does have symptoms of dizziness. Not ambulating much at this time. Remaining systems were reviewed and they were noted all negative. PHYSICAL EXAMINATION: VITAL SIGNS: Normal temperature, respiratory rate is 20, heart rate is 73-107, blood pressure is 140/75-160/85. Pulse ox saturation on 5 liters nasal cannula is 92% saturation recorded. HEENT: Examination shows head was atraumatic. Eyes nonicterus. NECK: Supple. CARDIOVASCULAR: S1, S2 audible. LUNGS: Noted diffuse expiratory wheezing in the lungs bilaterally. ABDOMEN: Soft, nontender. EXTREMITIES: Noted without any acute edema. Edema of lower extremity has improved significantly. VISIBLE SKIN: Noted chronic bruising of the skin, which is medication-related, use of prednisone without any lesions or ulcers. CENTRAL NERVOUS SYSTEM: Cranial nerves 2-12 intact. MUSCULOSKELETAL: Without any acute deformities. IMPRESSION: 1. The patient has been currently treated for acute exacerbation of bronchial asthma with acute pneumonia involving the lower lungs bilaterally with gram-positive and gram-negative infection coverage, use of vancomycin and Zosyn. 2. The patient with a history of advanced pulmonary silicosis as well. PLAN OF MANAGEMENT: Based on the current culture results at this time, the vancomycin will be discontinued. Continue intravenous Zosyn. Repeat another chest x-ray in the morning. Consider fiberoptic bronchoscopy on 04/20/2018 if the patient continued to do poorly with severe cough, which remains nonproductive. The patient would be continue other previous therapy, plan of management, and care. Otherwise, except the Solu-Medrol will be changed back to 40 mg b.i.d. dosing at this time. Monitoring the respiratory status closely. Other supportive plan of management. Continue use of the BiPAP with oxygen supplementation. [place], [place] PROGRESS NOTE NAME: MARY MACIAS UNIT #: [id number] ROOM: [facility] DOCTOR: EFRAIN MASON MD,BELGICA BIRTHDATE: [birth year] BELGICA ZUNIGA MD CM:PNTRANS [phone] BELGICA MASON MD 04/19/18 0234 interface
--- NOTE | ~2018-04-14 | PR ---
[place], [place] PROGRESS NOTE [facility] [id number] UNIT #: [id number] ROOM: [facility] DOCTOR: JANIS WALLIS MD BIRTHDATE: [birth year] DOS: 04/16/2018 CARDIOLOGY FOLLOW VISIT REASON FOR VISIT: Borderline elevation of troponin and paroxysmal atrial fibrillation. HISTORY OF PRESENT ILLNESS: The patient is alert, in no acute distress. Denies any chest pain or palpitations. Still somewhat short of breath. No PND, no orthopnea. No nausea, vomiting, diarrhea. No palpitations, no fever or chills. REVIEW OF SYSTEMS: Review of the 8 systems negative except as mentioned above. RHYTHM STRIPS: The patient in sinus rhythm. PHYSICAL EXAMINATION: VITAL SIGNS: Blood pressure 151/70, pulse 81, respiratory rate is 14. Weight 90.2 kilos. GENERAL: Alert, comfortable, in no acute distress. HEENT: Pupils are equal, no jaundice. NECK: Supple, no distended neck veins, no carotid bruit. CHEST: Symmetrical, nontender. Tongue was moist and pharynx was clear. LUNGS: A few scattered rhonchi, diminished at the right lower lobe. HEART: Regular rhythm, no S3. Grade 1/6 systolic murmur. ABDOMEN: Benign, nontender. Bowel sounds normal. EXTREMITIES: Showed no edema. Distal pulses are palpable. SKIN: Warm and dry. No cyanosis, no clubbing. RECTAL: Deferred. GENITOURINARY: Deferred. NEUROLOGIC: The patient is alert, oriented, and no focal neurologic deficit. MEDICATIONS: Reviewed. ALLERGIES: Reviewed. LABORATORY DATA: Reviewed. IMPRESSION: 1. Borderline elevation of troponin, possibly due to type 2 [id number] myocardial infarction from his hypoxemia. 2. History of paroxysmal atrial fibrillation with high CHADS2-VASc score patient was on Xarelto anticoagulation. 3. Severe chronic obstructive pulmonary disease with home oxygen. 4. Pneumonia. 5. History of hypertension. 6. Coronary artery disease, status post stents in the past. 7. History of cerebrovascular accident. 8. Anemia. RECOMMENDATIONS: [place], [place] PROGRESS NOTE NAME: MARY MACIAS UNIT #: [id number] ROOM: [facility] DOCTOR: BIMAL RING,JANIS HICKMANDATE: [birth year] 1. He denies any chest pain. Continue current medications. Check his 2D echo, which was performed this morning. I would not recommend any further cardiac testing at this time. 2. Continue his current cardiac medications including his statins and Xarelto. If he can tolerate from his blood pressure and pulmonary standpoint, I would add low-dose beta blockers. 3. The above recommendation discussed with his family member who is at bedside. JANIS WALLIS MD CM:OLIVIA [id number] JANIS WALLIS MD 04/17/18 0021 interface
--- NOTE | ~2018-04-14 | PR ---
[place], [place] PROGRESS NOTE NAME: MARY MACIAS [facility] #: [id number] UNIT #: [id number] ROOM: 428 DOCTOR: EFRAIN MASON MD,BELGICA BIRTHDATE: [birth year] DOS: 04/20/2018 SUBJECTIVE: The patient was noted with severe cough, which remained nonproductive episodic. The patient was not noted any symptoms of chest pain or hemoptysis. Denies symptoms of fever or chills. Denies symptoms of pain of the lower extremity, edema lower extremity continue resolved ____ noted. He has been using the BiPAP intermittently and at night as well. He denies symptoms of hemoptysis. MEDICATIONS: Reviewed. They were noted all negative. ____. PHYSICAL EXAMINATION: VITAL SIGNS: The temperature remains normal, respiratory rate 18, heart rate 71, 78, blood pressure 132/70-131/71. Pulse oxygen saturation noted on 5 liters nasal cannula 94% saturation. HEAD, EYES, EARS, NOSE, AND THROAT: Examination shows head was atraumatic. Eyes nonicterus. NECK: Supple. CARDIOVASCULAR: S1, S2 audible. LUNGS: Noted with moderate decreased breath sounds, persistent expiratory wheezing, no scattered crackles bilaterally. ABDOMEN: Soft. Moderate obesity was present. EXTREMITIES: Show mild edema. SKIN: ____ medication related. There were no lesions or ulcers. MUSCULOSKELETAL: No deformities. CENTRAL NERVOUS SYSTEM: Cranial nerves 2-12 intact. LABORATORY AND DIAGNOSTIC DATA: Strep antigen in the urine noted as negative. The chest x-ray that was done yesterday shows persistent bilateral infiltration noted. However, partial improvement with aeration in the right lower lobe. IMPRESSION: 1. The patient's bilateral lower lobe infiltration with the current treatment ongoing for acute pneumonia. Bronchoscopy. Severe coughing, wheezing, shortness of breath, still persisted with partial improvement. 2. 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 3. Obstructive sleep apnea disorder. PLAN OF TREATMENT: Continuation of the current plan of management, bronchodilators, oxygen supplementation, same dose of corticosteroids previously. No changes need to be done. These also remains on hold for bronchoscopy, for today will be started most likely after bronchoscopy. No complications. Continue in the meantime other therapy, plan of management, care plan of therapy. Plan of care. Usual treatment. Other supportive care therapy. No other new changes. [place], [place] PROGRESS NOTE NAME: MARY MACIAS UNIT #: [id number] ROOM: 428 DOCTOR: EFRAIN MASON MD,BELGICA BIRTHDATE: [birth year] BELGICA ZUNIGA MD CM:PNTRANS [id number] BELGICA MASON MD 04/20/18 1141 interface
--- NOTE | ~2018-04-14 | PR ---
[place], [place] PROGRESS NOTE NAME: MARY MACIAS [facility] #: [id number] UNIT #: [id number] ROOM: 428 DOCTOR: EFRAIN MASON MD,BELGICA BIRTHDATE: [birth year] DOS: 04/23/2018 PULMONARY PROGRESS NOTE SUBJECTIVE: The patient is noted comfortable at this time without any acute distress. He has not been reported any symptoms of chest pain, coughing or sputum expectoration. Denies symptoms of abdominal pain. OBJECTIVE: VITAL SIGNS: Showed normal temperature, respiratory rate 20, heart rate of 82, blood pressure 97/73 to 117/67. The pulse oxygen saturation of the patient on 5 liters nasal cannula was 97% saturation. HEENT: Shows head was atraumatic, eyes nonicterus. NECK: Supple. CARDIOVASCULAR: S1, S2 audible. LUNGS: The patient was noted with occasional crackles. Wheezing is improving. EXTREMITIES: Show chronic changes with mild edema with thickening of the skin and dryness of the skin of lower extremities. LABORATORY DATA: BMP is noted with normal BUN and creatinine today. CBC: WBC count 15.8, hemoglobin 11.1. IMPRESSION: 1. 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 2. Acute exacerbation of bronchial asthma. 3. Resolving congestive heart failure, diastolic dysfunction. PLAN OF MANAGEMENT: Continuation of the current therapy, plan of management and care. Other supportive plan of management, care plan and treatments. Additional treatment changes will be made based on progression of the illness. BELGICA ZUNIGA MD CM:PNTRANS [id number] BELGICA MASON MD 04/23/18 1028 interface
--- NOTE | ~2018-04-14 | PR ---
[place], [place] PROGRESS NOTE NAME: MARY MACIAS [facility] #: [id number] UNIT #: [id number] ROOM: [facility] DOCTOR: EFRAIN MASON MD,BELGICA BIRTHDATE: [birth year] DOS: 04/16/2018 SUBJECTIVE: He has been noted shortness of breath this morning. Coughing was noted mostly nonproductive. There were no symptoms of chest pain or any hemoptysis. He has been noted edema of lower extremities also noted some redness and pain in the right knee as well. Denies any symptoms of fever or chills. The patient was noted any weakness and fatigue. Shortness of breath was noted at rest. He has been using the BiPAP at nighttime and oxygen supplementation this morning. OBJECTIVE: VITAL SIGNS: For the patient which are recorded showed the temperature noted as normal, respiratory rate 14, heart rate 81, blood pressure 115/78-109/67. Pulse ox saturation on BiPAP was 99%, saturation on nasal cannula was 94% saturation. HEENT: Examination shows head was atraumatic. Eyes nonicterus. NECK: Supple. CARDIOVASCULAR: S1, S2 audible. LUNGS: Noted with mild expiratory wheezing bilaterally noted greater on the left than the right side. ABDOMEN: Soft, nontender. EXTREMITIES: Noted with mild edema. MUSCULOSKELETAL: Noted some redness of the right knee with area of warmth to touch. CENTRAL NERVOUS SYSTEM: Cranial nerves II-XII intact. SKIN: The skin was noted with chronic bruising of the skin, which has been noted without any acute lesions or rashes. LABORATORY DATA: BMP today, normal BUN and creatinine. Troponin 0.081. CBC of patient that was done 22.4, hemoglobin 10.4, hematocrit 34.8, platelet count 463,000. IMPRESSION: 1. Bilateral acute pneumonia, which has been noted superimposed with chronic progressive massive pulmonary fibrosis. 2. Acute on chronic hypoxic respiratory failure. 3. History of obstructive sleep apnea disorder. 4. Acute exacerbation of bronchial asthma. 5. Chronic steroid dependency. 6. Possibility of arthritis with septic arthritis to be excluded of the right knee. PLAN OF MANAGEMENT: Continuation of the current broad-spectrum intravenous antibiotic, current dose of corticosteroids, monitor hyperglycemia, bronchodilators administration, other therapy, plan of management and care. Additional treatment changes will be made based on progression of the illness. Consider orthopedic consultation for assessment of the knee. [place], [place] PROGRESS NOTE NAME: MARY MACIAS UNIT #: [id number] ROOM: [facility] DOCTOR: EFRAIN MASON MD,BELGICA BIRTHDATE: [birth year] BELGICA ZUNIGA MD CM:OLIVIA [id number] BELGICA MASON MD 04/16/18 1819 interface
[2018-04-14 15:03] VITALS: BP 104/64
[2018-04-14] MEDS ORDERED: TRAMADOL HCL50 MG PO (15:16)
[2018-04-14 15:17] VITALS: BP 93/63
[2018-04-14 15:39] LABS: HEMATOCRIT 36.8 % (42.0-52.0); HEMOGLOBIN 11.1 g/dl (14.0-18.0); MEAN CELL VOLUME 76.5 fl (80.0-94.0); MEAN CORPUSCULAR HGB 23.1 pg (27.0-31.0); MEAN CORPUSCULAR HGB CONC 30.2 g/dl (33.0-37.0); MEAN PLATELET VOLUME 9.9 fl (9.6-12.3); PLATELET COUNT AUTOMATED 466 10*3/uL (130-400); RED BLOOD COUNT 4.81 10*6/uL (4.50-5.90); RED CELL DISTRI WIDTH 17.9 % (0-14.5); WHITE BLOOD COUNT 20.2 10*3/uL (4.8-10.8)
[2018-04-14 15:41] VITALS: BP 99/72
[2018-04-14 15:47] LABS: ACT PARTIAL THROMBO TIME 26.4 SECONDS (20.8-31.5); INTERNATIONAL NORM RATIO 1.2 (2.0-3.5)
[2018-04-14 15:55] LABS: ALBUMIN 2.7 gm/dl (3.1-4.5); ALKALINE PHOSPHATASE 91 U/L (45-117); BUN 15 mg/dl (7-24); CHLORIDE 103 mmol/L (98-107); CREATININE 1.14 mg/dL (0.70-1.30); POTASSIUM 4.1 mmol/L (3.5-5.1); SGOT/AST 19 IU/L (3-35); SGPT/ALT 18 U/L (12-78); SODIUM 137 mmol/L (136-145); TOTAL PROTEIN 7.2 gm/dL (6.4-8.2)
[2018-04-14 15:59] LABS: TROPONIN I 0.116 ng/ml (<0.045)
[2018-04-14 16:22] LABS: PLATELET SUFFICIENCY HIGH (NORMAL); TOTAL CELLS COUNTED 100 #CELLS
[2018-04-14 16:23] LABS: OVALOCYTES FEW
[2018-04-14 16:47] LABS: BILIRUBIN NEGATIVE (NEGATIVE); BLOOD NEGATIVE (NEGATIVE); CLARITY CLEAR (CLEAR); COLOR YELLOW (YELLOW); GLUCOSE NEGATIVE (NEGATIVE); KETONE TRACE (NEGATIVE); LEUKO ESTERASE NEGATIVE (NEGATIVE); NITRITE NEGATIVE (NEGATIVE); PH 5.5 (5.0-9.0); SPECIFIC GRAVITY 1.015 (1.005-1.030)
[2018-04-14 16:51] LABS: ABG BASE EXCESS -1.3 mmol/L (-2.0-2.0); ABG HCO3 22.1 mmol/l (22-26); ABG O2 SATURATION 97.9 % (95-97); ARTERIAL BLOOD GAS PH 7.427 (7.35-7.45)
[2018-04-14 17:05] VITALS: BP 109/73
[2018-04-14 18:15] VITALS: BP 102/88
[2018-04-14 20:00] VITALS: BP 107/73
[2018-04-15] VITALS: BP 112/68
[2018-04-15 04:00] VITALS: BP 112/68
[2018-04-15 05:54] LABS: ACT PARTIAL THROMBO TIME 39.1 SECONDS (20.8-31.5); INTERNATIONAL NORM RATIO 1.5 (2.0-3.5)
[2018-04-15 06:11] LABS: HEMATOCRIT 36.8 % (42.0-52.0); HEMOGLOBIN 10.8 g/dl (14.0-18.0); MEAN CELL VOLUME 77.3 fl (80.0-94.0); MEAN CORPUSCULAR HGB 22.7 pg (27.0-31.0); MEAN CORPUSCULAR HGB CONC 29.3 g/dl (33.0-37.0); MEAN PLATELET VOLUME 9.8 fl (9.6-12.3); PLATELET COUNT AUTOMATED 463 10*3/uL (130-400); RED BLOOD COUNT 4.76 10*6/uL (4.50-5.90); RED CELL DISTRI WIDTH 18.1 % (0-14.5)
[2018-04-15 06:28] LABS: ALBUMIN 2.6 gm/dl (3.1-4.5); ALKALINE PHOSPHATASE 86 U/L (45-117); BUN 17 mg/dl (7-24); CHLORIDE 103 mmol/L (98-107); CREATININE 1.17 mg/dL (0.70-1.30); PHOSPHOROUS 4.1 mg/dL (2.5-4.9); POTASSIUM 4.2 mmol/L (3.5-5.1); SGOT/AST 20 IU/L (3-35); SGPT/ALT 14 U/L (12-78); SODIUM 138 mmol/L (136-145); TOTAL PROTEIN 7.2 gm/dL (6.4-8.2)
[2018-04-15 07:32] LABS: BASOPHILS 1 % (0-1); TOTAL CELLS COUNTED 100 #CELLS
[2018-04-15 07:33] LABS: MICROCYTOSIS SLIGHT; PLATELET SUFFICIENCY HIGH (NORMAL)
[2018-04-15 08:00] VITALS: BP 114/63
[2018-04-15 12:00] VITALS: BP 112/59
[2018-04-15 16:00] VITALS: BP 99/74
[2018-04-15 20:00] VITALS: BP 107/72
[2018-04-16] VITALS: BP 117/77
[2018-04-16 04:00] VITALS: BP 109/67
[2018-04-16 06:05] LABS: BUN 18 mg/dl (7-24); CHLORIDE 103 mmol/L (98-107); CREATININE 1.16 mg/dL (0.70-1.30); SODIUM 140 mmol/L (136-145)
[2018-04-16 06:06] LABS: HEMATOCRIT 34.8 % (42.0-52.0); HEMOGLOBIN 10.4 g/dl (14.0-18.0); MEAN CELL VOLUME 76.8 fl (80.0-94.0); MEAN CORPUSCULAR HGB CONC 29.9 g/dl (33.0-37.0); MEAN PLATELET VOLUME 9.8 fl (9.6-12.3); PLATELET COUNT AUTOMATED 463 10*3/uL (130-400); RED BLOOD COUNT 4.53 10*6/uL (4.50-5.90); RED CELL DISTRI WIDTH 17.8 % (0-14.5); WHITE BLOOD COUNT 22.4 10*3/uL (4.8-10.8)
[2018-04-16 06:08] LABS: TROPONIN I 0.081 ng/ml (<0.045)
[2018-04-16 07:12] LABS: TOTAL CELLS COUNTED 100 #CELLS
[2018-04-16 07:13] LABS: MICROCYTOSIS SLIGHT; OVALOCYTES FEW; PLATELET SUFFICIENCY HIGH (NORMAL)
[2018-04-16 08:00] VITALS: BP 115/78
[2018-04-16 12:00] VITALS: BP 103/54
[2018-04-16 16:00] VITALS: BP 119/73
[2018-04-16 17:57] LABS: HEMATOCRIT 35.5 % (42.0-52.0); HEMOGLOBIN 10.7 g/dl (14.0-18.0); MEAN CELL VOLUME 75.7 fl (80.0-94.0); MEAN CORPUSCULAR HGB 22.8 pg (27.0-31.0); MEAN CORPUSCULAR HGB CONC 30.1 g/dl (33.0-37.0); MEAN PLATELET VOLUME 9.4 fl (9.6-12.3); PLATELET COUNT AUTOMATED 479 10*3/uL (130-400); RED BLOOD COUNT 4.69 10*6/uL (4.50-5.90); WHITE BLOOD COUNT 23.7 10*3/uL (4.8-10.8)
[2018-04-16 18:18] LABS: TOTAL CELLS COUNTED 100 #CELLS
[2018-04-16 18:19] LABS: PLATELET SUFFICIENCY NORMAL (NORMAL)
[2018-04-16 20:00] VITALS: BP 117/72
[2018-04-17] VITALS: BP 107/63
[2018-04-17 04:00] VITALS: BP 104/69
[2018-04-17 06:48] LABS: BASO % 0.1 % (0.0-1.0); HEMATOCRIT 33.4 % (42.0-52.0); LYMPH # 0.9 10*3/uL (1.3-4.4); LYMPH % 5.5 % (27.0-41.0); MEAN CELL VOLUME 76.3 fl (80.0-94.0); MEAN CORPUSCULAR HGB 22.8 pg (27.0-31.0); MEAN CORPUSCULAR HGB CONC 29.9 g/dl (33.0-37.0); MEAN PLATELET VOLUME 9.4 fl (9.6-12.3); MONO # 1.2 10*3/uL (0.1-1.0); MONO % 6.9 % (3.0-9.0); NEUT # 14.7 10*3/uL (2.3-7.9); NEUT % 86.6 % (47.0-73.0); PLATELET COUNT AUTOMATED 425 10*3/uL (130-400); RED BLOOD COUNT 4.38 10*6/uL (4.50-5.90)
[2018-04-17 07:07] LABS: ALBUMIN 2.6 gm/dl (3.1-4.5); ALKALINE PHOSPHATASE 67 U/L (45-117); BUN 16 mg/dl (7-24); CHLORIDE 105 mmol/L (98-107); CREATININE 0.94 mg/dL (0.70-1.30); PHOSPHOROUS 2.2 mg/dL (2.5-4.9); POTASSIUM 3.6 mmol/L (3.5-5.1); SGOT/AST 15 IU/L (3-35); SGPT/ALT 14 U/L (12-78); SODIUM 142 mmol/L (136-145); TOTAL PROTEIN 6.7 gm/dL (6.4-8.2)
[2018-04-17 08:00] VITALS: BP 122/71; BP 169/85
[2018-04-17 12:00] VITALS: BP 101/62; BP 140/75
[2018-04-17 16:00] VITALS: BP 129/76
[2018-04-17 20:00] VITALS: BP 140/82
[2018-04-18] VITALS: BP 133/69
[2018-04-18 08:00] VITALS: BP 169/85
[2018-04-18 08:21] LABS: BASO % 0.1 % (0.0-1.0); EOS % 0.1 % (1.0-4.0); HEMATOCRIT 36.1 % (42.0-52.0); LYMPH # 1.4 10*3/uL (1.3-4.4); LYMPH % 9.9 % (27.0-41.0); MEAN CELL VOLUME 77.5 fl (80.0-94.0); MEAN CORPUSCULAR HGB 23.6 pg (27.0-31.0); MEAN CORPUSCULAR HGB CONC 30.5 g/dl (33.0-37.0); MEAN PLATELET VOLUME 9.1 fl (9.6-12.3); MONO # 1.2 10*3/uL (0.1-1.0); NEUT # 11.7 10*3/uL (2.3-7.9); NEUT % 80.6 % (47.0-73.0); PLATELET COUNT AUTOMATED 456 10*3/uL (130-400); RED BLOOD COUNT 4.66 10*6/uL (4.50-5.90); RED CELL DISTRI WIDTH 18.1 % (0-14.5); WHITE BLOOD COUNT 14.5 10*3/uL (4.8-10.8)
[2018-04-18 08:58] LABS: ALBUMIN 2.9 gm/dl (3.1-4.5); ALKALINE PHOSPHATASE 76 U/L (45-117); BUN 16 mg/dl (7-24); CHLORIDE 106 mmol/L (98-107); CREATININE 1.05 mg/dL (0.70-1.30); PHOSPHOROUS 1.7 mg/dL (2.5-4.9); POTASSIUM 3.8 mmol/L (3.5-5.1); SGOT/AST 19 IU/L (3-35); SGPT/ALT 15 U/L (12-78); SODIUM 143 mmol/L (136-145); TOTAL PROTEIN 7.1 gm/dL (6.4-8.2)
[2018-04-18 12:00] VITALS: BP 140/75
[2018-04-18 16:00] VITALS: BP 112/75
[2018-04-18 20:00] VITALS: BP 114/63
[2018-04-19] VITALS: BP 118/82
[2018-04-19 06:57] LABS: BASO % 0.2 % (0.0-1.0); HEMOGLOBIN 10.4 g/dl (14.0-18.0); LYMPH # 1.3 10*3/uL (1.3-4.4); LYMPH % 10.3 % (27.0-41.0); MEAN CELL VOLUME 77.8 fl (80.0-94.0); MEAN CORPUSCULAR HGB 23.1 pg (27.0-31.0); MEAN CORPUSCULAR HGB CONC 29.7 g/dl (33.0-37.0); MEAN PLATELET VOLUME 9.5 fl (9.6-12.3); MONO # 0.8 10*3/uL (0.1-1.0); MONO % 6.3 % (3.0-9.0); NEUT # 10.5 10*3/uL (2.3-7.9); NEUT % 81.2 % (47.0-73.0); PLATELET COUNT AUTOMATED 420 10*3/uL (130-400); RED CELL DISTRI WIDTH 18.3 % (0-14.5); WHITE BLOOD COUNT 12.9 10*3/uL (4.8-10.8)
[2018-04-19 07:24] LABS: ALBUMIN 2.6 gm/dl (3.1-4.5); BUN 15 mg/dl (7-24); CHLORIDE 105 mmol/L (98-107); CREATININE 0.87 mg/dL (0.70-1.30); PHOSPHOROUS 2.5 mg/dL (2.5-4.9); POTASSIUM 3.7 mmol/L (3.5-5.1); SGOT/AST 18 IU/L (3-35); SGPT/ALT 17 U/L (12-78); SODIUM 141 mmol/L (136-145); TOTAL PROTEIN 6.5 gm/dL (6.4-8.2)
[2018-04-19 07:44] LABS: ALKALINE PHOSPHATASE 63 U/L (45-117)
[2018-04-19 08:00] VITALS: BP 149/56
[2018-04-19 12:00] VITALS: BP 149/83
[2018-04-19 16:00] VITALS: BP 152/94
[2018-04-19 20:00] VITALS: BP 128/71
[2018-04-20] VITALS (11 sets, daily range): BP systolic 103–144; BP diastolic 56–85
[2018-04-21] VITALS: BP 144/73
[2018-04-21 08:00] VITALS: BP 131/62; BP 134/68
[2018-04-21 12:00] VITALS: BP 140/69
[2018-04-21 12:11] LABS: ACID FAST SPEC PROCESSING Concentration (.)
[2018-04-21 16:00] VITALS: BP 128/69
[2018-04-21 20:00] VITALS: BP 135/77
[2018-04-22] VITALS: BP 119/71
[2018-04-22 08:00] VITALS: BP 122/64
[2018-04-22 08:20] LABS: BUN 19 mg/dl (7-24); CREATININE 0.88 mg/dL (0.70-1.30)
[2018-04-22 12:00] VITALS: BP 109/57
[2018-04-22 16:00] VITALS: BP 129/60
[2018-04-22 19:45] VITALS: BP 104/58
[2018-04-22 20:00] VITALS: BP 117/67
[2018-04-23] VITALS: BP 97/73
[2018-04-23 06:42] LABS: HEMATOCRIT 37.4 % (42.0-52.0); HEMOGLOBIN 11.1 g/dl (14.0-18.0); MEAN CELL VOLUME 77.6 fl (80.0-94.0); MEAN CORPUSCULAR HGB CONC 29.7 g/dl (33.0-37.0); MEAN PLATELET VOLUME 9.7 fl (9.6-12.3); PLATELET COUNT AUTOMATED 437 10*3/uL (130-400); RED BLOOD COUNT 4.82 10*6/uL (4.50-5.90); RED CELL DISTRI WIDTH 18.4 % (0-14.5); WHITE BLOOD COUNT 15.8 10*3/uL (4.8-10.8)
[2018-04-23 06:58] LABS: ALBUMIN 2.8 gm/dl (3.1-4.5); ALKALINE PHOSPHATASE 76 U/L (45-117); BUN 19 mg/dl (7-24); CHLORIDE 102 mmol/L (98-107); CREATININE 0.78 mg/dL (0.70-1.30); POTASSIUM 3.5 mmol/L (3.5-5.1); SGOT/AST 18 IU/L (3-35); SGPT/ALT 21 U/L (12-78); SODIUM 140 mmol/L (136-145); TOTAL PROTEIN 6.4 gm/dL (6.4-8.2)
[2018-04-23 07:35] LABS: PLATELET SUFFICIENCY HIGH (NORMAL); TOTAL CELLS COUNTED 100 #CELLS
[2018-04-23 12:00] VITALS: BP 124/71
[2018-04-23 16:00] VITALS: BP 116/66
[2018-04-23 20:00] VITALS: BP 141/65
[2018-04-24] VITALS: BP 124/67
[2018-04-24 06:50] LABS: HEMATOCRIT 37.4 % (42.0-52.0); HEMOGLOBIN 11.1 g/dl (14.0-18.0); MEAN CELL VOLUME 77.3 fl (80.0-94.0); MEAN CORPUSCULAR HGB 22.9 pg (27.0-31.0); MEAN CORPUSCULAR HGB CONC 29.7 g/dl (33.0-37.0); MEAN PLATELET VOLUME 9.6 fl (9.6-12.3); PLATELET COUNT AUTOMATED 404 10*3/uL (130-400); RED BLOOD COUNT 4.84 10*6/uL (4.50-5.90); RED CELL DISTRI WIDTH 18.5 % (0-14.5); WHITE BLOOD COUNT 15.3 10*3/uL (4.8-10.8)
[2018-04-24 07:02] LABS: BUN 17 mg/dl (7-24); CHLORIDE 103 mmol/L (98-107); CREATININE 0.84 mg/dL (0.70-1.30); POTASSIUM 3.9 mmol/L (3.5-5.1); SODIUM 138 mmol/L (136-145)
[2018-04-24 07:28] LABS: BURR CELLS FEW; MICROCYTOSIS SLIGHT; PLATELET SUFFICIENCY HIGH (NORMAL); TOTAL CELLS COUNTED 100 #CELLS
[2018-04-24 08:00] VITALS: BP 99/50
[2018-04-24] MEDS ORDERED: PREDNISONE10 MG PO (10:06)
[2018-04-24] MEDS ORDERED: ASPIRIN CHEWABL81 MG PO (10:06)
[2018-04-24] MEDS ORDERED: DOXYCYCLINE100 M3 PO (10:06)
[2018-05-12] MEDS ORDERED: LOPRESSOR25 MG PO (12:58)
[2018-05-12] MEDS ORDERED: TRAMADOL HCL50 MG PO (16:12)
[2018-05-13] MEDS ORDERED: TRAMADOL HCL50 MG PO (14:18)
[2018-05-13] MEDS ORDERED: GABAPENTIN600 MG PO (14:23)
[2018-05-13] MEDS ORDERED: AZELASTINE137 MCG/0. NAS (14:24)
[2018-05-13] MEDS ORDERED: MOMETASONE FURO17 GM NAS (14:26)
[2018-05-13] MEDS ORDERED: PERCOCET 5-3251 EACH PO (14:28)
[2018-05-17] MEDS ORDERED: DEMADEX20 M1 PO (09:17)
[2018-05-17] MEDS ORDERED: LEVAQUIN750 M1 PO (09:17)
[2018-05-17] MEDS ORDERED: PREDNISONE10 MG PO (09:17)
[2018-05-21 12:05] LABS: M GORDONAE Negative (.); M TUBERCULOSIS COMPLEX Negative (.)
[2018-05-21 14:14] LABS: ACID FAST CULTURE Positive (.)
== END 2018-04-24 11:30 | disposition home or self-care (01) | DRG 871 ==
LOC: ED 14:55 → ICCU 17:07 → EDHOLD 17:07 → ICCU 17:23 → 4E 04-17 15:07
PROVIDERS: Emergency Medicine; Family Medicine; Internal Medicine; Internal Medicine Critical Care Medicine; Registered Nurse; Student in an Organized Health Care Education/Training Program
PROC: 5A09357 Assistance with Respiratory Ventilation, Less than 24 Consecutive Hours, Continuous Positive Airway Pressure (ICD-10-PCS; principal; 2018-04-15)
PROC: 5A09357 Assistance with Respiratory Ventilation, Less than 24 Consecutive Hours, Continuous Positive Airway Pressure (ICD-10-PCS; 2018-04-16)
PROC: 5A09357 Assistance with Respiratory Ventilation, Less than 24 Consecutive Hours, Continuous Positive Airway Pressure (ICD-10-PCS; 2018-04-17)
PROC: 5A09357 Assistance with Respiratory Ventilation, Less than 24 Consecutive Hours, Continuous Positive Airway Pressure (ICD-10-PCS; 2018-04-18)
PROC: 5A09357 Assistance with Respiratory Ventilation, Less than 24 Consecutive Hours, Continuous Positive Airway Pressure (ICD-10-PCS; 2018-04-19)
PROC: 0BCB8ZZ Extirpation of Matter from Left Lower Lobe Bronchus, Via Natural or Artificial Opening Endoscopic (ICD-10-PCS; 2018-04-20)
PROC: 0BC38ZZ Extirpation of Matter from Right Main Bronchus, Via Natural or Artificial Opening Endoscopic (ICD-10-PCS; 2018-04-20)
PROC: 0BC98ZZ Extirpation of Matter from Lingula Bronchus, Via Natural or Artificial Opening Endoscopic (ICD-10-PCS; 2018-04-20)
PROC: 0BC48ZZ Extirpation of Matter from Right Upper Lobe Bronchus, Via Natural or Artificial Opening Endoscopic (ICD-10-PCS; 2018-04-20)
PROC: 0BC78ZZ Extirpation of Matter from Left Main Bronchus, Via Natural or Artificial Opening Endoscopic (ICD-10-PCS; 2018-04-20)
PROC: 5A09357 Assistance with Respiratory Ventilation, Less than 24 Consecutive Hours, Continuous Positive Airway Pressure (ICD-10-PCS; 2018-04-20)
PROC: 0BC88ZZ Extirpation of Matter from Left Upper Lobe Bronchus, Via Natural or Artificial Opening Endoscopic (ICD-10-PCS; 2018-04-20)
PROC: 0BC58ZZ Extirpation of Matter from Right Middle Lobe Bronchus, Via Natural or Artificial Opening Endoscopic (ICD-10-PCS; 2018-04-20)
PROC: 0BC68ZZ Extirpation of Matter from Right Lower Lobe Bronchus, Via Natural or Artificial Opening Endoscopic (ICD-10-PCS; 2018-04-20)
PROC: 0BC18ZZ Extirpation of Matter from Trachea, Via Natural or Artificial Opening Endoscopic (ICD-10-PCS; 2018-04-20)
PROC: 0BC28ZZ Extirpation of Matter from Carina, Via Natural or Artificial Opening Endoscopic (ICD-10-PCS; 2018-04-20)
PROC: 5A09357 Assistance with Respiratory Ventilation, Less than 24 Consecutive Hours, Continuous Positive Airway Pressure (ICD-10-PCS; 2018-04-21)
PROC: 5A09357 Assistance with Respiratory Ventilation, Less than 24 Consecutive Hours, Continuous Positive Airway Pressure (ICD-10-PCS; 2018-04-23)
DX: A41.9 Sepsis, unspecified organism (principal); I21.A1 Myocardial infarction type 2; J96.21 Acute and chronic respiratory failure with hypoxia; E43 Unspecified severe protein-calorie malnutrition; I50.33 Acute on chronic diastolic (congestive) heart failure; E87.2 Acidosis; J18.1 Lobar pneumonia, unspecified organism; J45.901 Unspecified asthma with (acute) exacerbation; E87.8 Other disorders of electrolyte and fluid balance, not elsewhere classified; J44.9 Chronic obstructive pulmonary disease, unspecified; I27.81 Cor pulmonale (chronic); I11.0 Hypertensive heart disease with heart failure; I48.2 Chronic atrial fibrillation; J84.10 Pulmonary fibrosis, unspecified; R73.9 Hyperglycemia, unspecified; J62.8 Pneumoconiosis due to other dust containing silica; M81.0 Age-related osteoporosis without current pathological fracture; I25.10 Atherosclerotic heart disease of native coronary artery without angina pectoris; E78.5 Hyperlipidemia, unspecified; F41.1 Generalized anxiety disorder; K21.9 Gastro-esophageal reflux disease without esophagitis; G89.29 Other chronic pain; M54.9 Dorsalgia, unspecified; E66.09 Other obesity due to excess calories; G47.00 Insomnia, unspecified; T38.0X5A Adverse effect of glucocorticoids and synthetic analogues, initial encounter; D50.9 Iron deficiency anemia, unspecified; R74.8 Abnormal levels of other serum enzymes; R65.20 Severe sepsis without septic shock; Z88.8 Allergy status to other drugs, medicaments and biological substances; Z79.899 Other long term (current) drug therapy; Z87.01 Personal history of pneumonia (recurrent); Z98.1 Arthrodesis status; Z87.891 Personal history of nicotine dependence; Z95.5 Presence of coronary angioplasty implant and graft; Z99.81 Dependence on supplemental oxygen; Z82.3 Family history of stroke; Z84.89 Family history of other specified conditions; Z86.73 Personal history of transient ischemic attack (TIA), and cerebral infarction without residual deficits; Y92.89 Other specified places as the place of occurrence of the external cause; Z68.30 Body mass index [BMI] 30.0-30.9, adult

== ENCOUNTER 2018-06-11 09:50 | Emergency (ER) | payer OTHER ==
[~2018-06-11] VITALS: Ht 172.7 cm; Wt 84.4 kg
[~2018-06-11 09:50] MED LIST changes: +ASPIRIN CHEWABL81 MG PO; +AZELASTINE137 MCG/0. NAS; +DOXYCYCLINE100 M3 PO; +GABAPENTIN600 MG PO; +MOMETASONE FURO17 GM NAS; +TRAMADOL HCL50 MG PO
[2018-06-29] MEDS ORDERED: PREDNISONE10 M1 PO (14:27)
[2018-07-04] MEDS ORDERED: LASIX20 MG PO (13:37)
[2018-07-04] MEDS ORDERED: OXYGEN NAS (13:38)
[2018-07-04] MEDS ORDERED: PREDNISONE20 M1 PO (13:43)
[2018-07-04] MEDS ORDERED: DEMADEX10 M1 PO (13:44)
[2018-09-04] MEDS ORDERED: LASIX40 MG PO (20:08)
[2018-09-25] MEDS ORDERED: PREDNISONE10 MG PO (09:49)
== END 2018-06-11 13:05 | disposition home or self-care (01) ==
LOC: ED 09:50
DX: S81.012A Laceration without foreign body, left knee, initial encounter (principal); Z87.891 Personal history of nicotine dependence; Z98.890 Other specified postprocedural states; Z95.5 Presence of coronary angioplasty implant and graft; Z79.899 Other long term (current) drug therapy; Z88.1 Allergy status to other antibiotic agents; W22.8XXA Striking against or struck by other objects, initial encounter; Y93.89 Activity, other specified; Y92.89 Other specified places as the place of occurrence of the external cause; Y99.8 Other external cause status

== ENCOUNTER 2018-08-18 12:46 | Inpatient (IN) | payer OTHER ==
[~2018-08-18] VITALS: Ht 172.7 cm; Wt 79.5 kg
--- NOTE | ~2018-08-18 | EKG ---
[place], [place] ELECTROCARDIOGRAM REPORT NAME: MARY MACIAS UNIT #: [id number] ROOM: 403 DOCTOR: MÓNICA DRAFT REPORT BIRTHDATE: [birth year] [facility] Test Date: 2018-08-18 Test Time: 13:03:50 Pat Name: MARY MACIAS Department: Room: 403 Gender: M Nurses Medical Assistants Phlebotomists: Nataliia Earl : 1945 Requested By: KELL LIMON Order Number: [id number] Reading MD: Tate Boone MD Measurements Intervals [place] Rate: 96 P: -19 MS: 160 QRS: -47 QRSD: 112 T: 115 QT: 347 QTc: 439 Interpretive Statements Wandering atrial pacemaker Left anterior fascicular block Compared to ECG 06/29/2018 12:44:17 No significant change Electronically Signed On 08-18-2018 16:32:08 PST by Tate Boone MD CM:EKGRPT:ELECTROCARDIOGRAM REPORT [id number] KELL RICO DRAFT REPORT KELL LIMON DO
--- NOTE | ~2018-08-18 | CON ---
[place], [place] REPORT OF CONSULTATION NAME: MARY MACIAS UNIT #: [id number] ROOM: 403 DOCTOR: EFRAIN MASON MD,BELGICA BIRTHDATE: [birth year] DOS: 08/19/2018 PULMONARY CONSULTATION EVALUATION AND MANAGEMENT CONSULTATION REQUESTED BY: Hospitalist service. The patient was independently seen and examined, ognc-au-[id number] encounter, history was confirmed. Physical examination performed for patient independently. The labs were reviewed. Assessment and manage the patient personally completed for today's consultation. REASON FOR CONSULTATION: For assessment of the current acute respiratory symptoms. HISTORY OF PRESENT ILLNESS: This is a 73-year-old white male very well known to me with past frequent hospitalization, congestive heart failure, diastolic dysfunction. Last hospitalization, the patient was sent home with Lasix at 60 mg b.i.d. The patient stated that he has been seen by his primary care physician who will decrease the dose to 40 mg Lasix daily. The patient was discharged home on 07/09/2018 and was doing very well. Since the Lasix dose has been decreased the patient started with having increased fluid retention and progressive increased shortness of breath occurred in the last few days. The patient does have mild cough without any sputum expectoration. Denies symptoms of significant wheezing. Denies symptoms of hemoptysis. The patient has been noted progressive edema of the lower extremities. REVIEW OF SYSTEMS: As completed by the senior medical technologist for the patient was approved. PAST MEDICAL HISTORY: 1. Known history of chronic hypoxic respiratory failure, use of oxygen supplementation 4-5 liters nasal cannula. 2. 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 3. History of congestive heart failure with diastolic dysfunction. 4. Obstructive sleep apnea disorder. 5. Chronic steroid dependency use of prednisone 15 mg daily. 6. Coronary artery disease. 7. Essential hypertension. 8. Frequent hospitalizations. 9. Whez-mt-evjyzgvn obesity. 10. Atrial fibrillation. 11. Allergic rhinitis. 12. Anxiety disorder. PAST SURGICAL HISTORY: 1. Cervical fusion of the spine. 2. Carpal tunnel release bilaterally. 3. Bilateral cataract extraction and ____. 4. Therapy bronchoscopy last one done in 04/2018. [place], [place] REPORT OF CONSULTATION NAME: MARY MACIAS UNIT #: [id number] ROOM: [facility] DOCTOR: EFRAIN MASON MDBELGICA BIRTHDATE: [birth year] 5. Cardiac catheterization with coronary artery stent insertion. SOCIAL HISTORY: The patient is , lives at home. Denies any alcohol use, illicit drug use. Tobacco use noted since teenager, pack of cigarettes per day until 2014. 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 FAMILY HISTORY: Father at 71 with complication of stroke. Mother at 69 years complications of liver disease. MEDICATIONS: Current medications administered noted use of Xarelto, potassium chloride, asthma, Aldactone, Protonix, ferrous sulfate, gabapentin, metoprolol tartrate, Solu-Medrol 40 mg b.i.d., Lasix 40 mg b.i.d., DuoNeb and Levaquin. ALLERGIES: The patient noted as ALLERGY TO CLINDAMYCIN. PHYSICAL EXAMINATION: GENERAL: This is a 73-year-old white male, currently sitting on the side of the bed without acute distress this morning of assessment. Height of 5 feet 8 inches, weight 179 pounds, BMI 27. VITAL SIGNS: Normal temperature, respirations 18-20, heart rate 87-97, blood pressure 11/02/1983-. Pulse oxygen saturation of the patient 3 liters nasal cannula 95% saturation. HEENT: Head was atraumatic. Eyes nonicterus. NECK: Supple. CARDIOVASCULAR: S1, S2 audible in. LUNGS: Decreased breath sounds. Scattered crackles in the lungs. There was no wheezing. ABDOMEN: Soft, nontender. EXTREMITIES: Showed 2+ pitting edema. SKIN: Noted with area of bruising. The patient tenderness of the skin patient secondary to chronic medication use. There were no open areas. MUSCULOSKELETAL: Without acute deformities. CENTRAL NERVOUS SYSTEM: Cranial nerves 2-12 intact. No focal deficit. LABORATORY DATA: The CBC that was done yesterday in the Emergency Room, WBC count 18.7, hemoglobin 12, hematocrit 38.7, platelet count of 416,000. CMP of the that was done the patient on 08/18/2018, glucose 131, normal BUN and creatinine. Potassium 3.3. The PT, PTT yesterday were noted, INR 1.5, PTT 42. CBC on 08/19/2018, WBC count 17.7, hemoglobin 10.8, hematocrit 35.2, platelet count 404,000. CMP that was done on 08/19/2018, glucose 127, BUN normal, creatinine was normal. The chest x-ray of patient shows chronic interstitial pulmonary fibrotic changes. The patient silicosis without any superimposed acute pulmonary infiltration. IMPRESSION: 1. The patient will be currently admitted to the hospital noted recurrence of acute congestive heart failure, diastolic dysfunction as the dose of the Lasix has been decreased by the primary care physician of this patient. 2. The patient with chronic hypoxic respiratory failure. [place], [place] REPORT OF CONSULTATION NAME: MARY MACIAS UNIT #: [id number] ROOM: 403 DOCTOR: EFRAIN MASON MD,BELGICA BIRTHDATE: [birth year] 3. Acute exacerbation of chronic obstructive pulmonary disease would be considered as well. 4. The patient with a history of obstructive sleep apnea disorder. 5. Anticoagulation abnormality was noted secondary to use, resolved with elevation PT/PTT, which has been reported. PLAN OF MANAGEMENT: Continue the aggressive diuretic therapy for the patient at this time. Bronchodilator with oxygen supplementation. Corticosteroid 40 mg b.i.d. already administered, dose could be decreased in the next 24 hours. Continuation of the other plan of treatment for the patient at this time and usual medical management therapy, plan of care. Supportive care, other treatment for the patient to be given as well. Use of the CPAP or BiPAP from home settings as well. Thanks for allowing me to participate in the care of this patient. BELGICA ZUNIGA MD CM:CONSTR:REPORT OF CONSULTATION 1252 08/19/18 1620 interface
--- NOTE | ~2018-08-18 | PR ---
[place], [place] PROGRESS NOTE NAME: MARY MACIAS [facility] #: [id number] UNIT #: [id number] ROOM: 403 DOCTOR: NOE BRANDON DO BIRTHDATE: [birth year] DOS: 08/20/2018 PULMONOLOGY PROGRESS NOTE SUBJECTIVE: The patient was seen and evaluated today on a general medical floor. The patient reports that the swelling in his lower extremities is improving as is his shortness of breath. The patient is currently upset about his diet, which is cardiac with low salt at this time. The patient denies any chest pains, nausea, vomiting, diarrhea, constipation, urinary complaints or any other symptoms. OBJECTIVE: VITAL SIGNS: Temperature of 97.5, pulse of 74, respiratory rate of 18, blood pressure 124/68, pulse ox 96 on 3 liters nasal cannula. GENERAL APPEARANCE: Alert, awake, no acute distress. HEAD: Head is normocephalic, atraumatic. EYES: No lesions, no ulcerations. PERRLA. ENT: No lesions, scars, masses. NECK: Without lesions, without masses. Supple. LUNGS: The patient is short of breath with diminished breath sounds and rales and wheezing bilaterally. Wheezing is improving though. CARDIOVASCULAR: Irregular rhythm, regular rate. No murmurs, no rubs, no gallops. ABDOMEN: Soft, nontender. Bowel sounds present. EXTREMITIES: 2+ pitting edema bilaterally, improving from approximately 3+ yesterday. NEUROLOGIC: Grossly intact. No focal neurologic deficits. PSYCHIATRIC: Normal affect. The patient is mildly agitated due to his current diet. SKIN: Warm and dry. No rashes, lesions, ulcerations. LABORATORY DATA: This morning revealed a white blood cell count of 16.1, hemoglobin of 10.8, hematocrit of 35.2 and platelet count of 410. Coagulation profile within normal limits. BMP revealed mild hyperglycemia of 135, but no other acute abnormalities. IMPRESSION: 1. The patient is currently admitted to the hospital with an acute exacerbation of congestive heart failure with diastolic dysfunction. 2. Chronic hypoxic respiratory failure. 3. Possible acute exacerbation of chronic obstructive pulmonary disease. 4. Obstructive sleep apnea. PLAN OF MANAGEMENT: Continue current diuretic therapy for acute exacerbation of congestive heart failure. Cardiology remains on consult and is providing input as well. Continue breathing treatments and Solu-Medrol will be decreased to 40 mg daily. Antibiotics have been discontinued. The use of the patient's CPAP or BiPAP with home settings will be provided along with oxygen supplementation to keep pulse ox above 92%. Continue usual plan of care and therapy per the primary team. Pulmonology remains on consult and will make changes as needed. [place], [place] PROGRESS NOTE NAME: MARY MACIAS Jose Miguel UNIT #: [id number] ROOM: 403 DOCTOR: NOE BRANDON DO BIRTHDATE: [birth year] Noe Brandon DO BELGICA ZUNIGA MD CM:PNCHAD [phone] NOE BRANDON DO 09/02/18 0711 interface
--- NOTE | ~2018-08-18 | PR ---
[place], [place] PROGRESS NOTE NAME: MARY MACIAS [facility] #: [id number] UNIT #: [id number] ROOM: 403 DOCTOR: ALIZA SILVEIRA MD BIRTHDATE: [birth year] DOS: 08/21/2018 CARDIOLOGY PROGRESS NOTE SUBJECTIVE: The patient was seen at his bedside today, 08/21/2018, for followup of his acute on chronic diastolic heart failure. He is a 73-year-old man with a history of severe obstructive lung disease and pulmonary fibrosis. He also has chronic diastolic congestive heart failure. Recently, his primary physician decreased his furosemide from 60 mg twice a day to 20 mg twice a day. Shortly after that, he began to experience increasing dyspnea, peripheral edema, and weakness. He presented to the hospital where he was found to be in congestive heart failure. He also had an acute exacerbation of his lung disease. He was treated with intravenous diuresis along with steroids and bronchodilators. He now feels considerably better and is anxious for discharge. PHYSICAL EXAMINATION: VITAL SIGNS: Today, pulse is 82 and slightly irregular, blood pressure is 119/71. He is afebrile. He weighs 79.5 kilograms. I and O measurements show that he diuresed 1000 mL overnight. HEENT: Normocephalic and atraumatic. Extraocular muscles are intact. Sclerae are clear. Pupils are round and react to light. Oral mucosa is moist. Tongue is midline. NECK: Supple. He has no jugular distention. Carotids are full without bruits. LUNGS: Respirations are unlabored at rest. He does have decreased breath sounds at the bases, but very few crackles. The crackles that he had initially have essentially resolved. He has no wheezes. He has no presacral edema or chest wall tenderness. HEART: Has a fairly regular rhythm with occasional premature beats and a fourth heart sound. There was no third heart sound or murmur. ABDOMEN: Soft and normally active. EXTREMITIES: Show trace edema. Again, this is markedly improved from admission. LABORATORY DATA: Hemoglobin is 10.8, white count 16,100 (patient on steroids), platelet count 410,000. Sodium 140, potassium 3.6, BUN 21, creatinine 0.94. IMPRESSIONS: 1. Acute on chronic diastolic congestive heart failure. 2. Severe obstructive lung disease with pulmonary fibrosis. 3. Acute exacerbation of chronic lung disease. PLAN: The patient may be discharged to home on his current cardiac medications including furosemide 60 mg twice a day, potassium chloride 20 mEq daily, spironolactone 25 mg daily, rivaroxaban 20 mg daily, enteric aspirin 81 mg daily, metoprolol 12.5 mg twice a day in addition to his diabetes medications, bronchodilators, steroids, etc. We would like to have him follow up with us in the office in about a month. I thank the hospitalist physicians for asking our advice regarding the patient's [place], [place] PROGRESS NOTE NAME: MARY MACIAS UNIT #: [id number] ROOM: 403 DOCTOR: ALIZA SILVEIRA MD BIRTHDATE: [birth year] care. ALIZA SILVEIRA MD CM:PNTRANS 6 3 ALIZA SILVEIRA MD 08/21/1845 interface
--- NOTE | ~2018-08-18 | PR ---
[place], [place] PROGRESS NOTE [id number] #: [id number] ROOM: 403 DOCTOR: NOE BRANDON DO BIRTHDATE: [birth year] DOS: 08/21/2018 PULMONOLOGY PROGRESS NOTE SUBJECTIVE: The patient was seen and evaluated today. The patient reports that his shortness of breath is resolving with his current use of the Lasix. The patient reports that his edema has decreased with the use of the Lasix as well. The patient denies any fevers, chills, nausea, vomiting, diarrhea, constipation or any chest pain. OBJECTIVE: VITAL SIGNS: Temperature of 98, pulse of 65, respiratory rate of 20, blood pressure of 135/78 and O2 sats are 100% on 3 liters nasal cannula. GENERAL: The patient is alert and oriented. No signs of distress at this time. HEAD: Atraumatic, normocephalic. EYES: PERRLA. ENT: No masses or lesions. NECK: Supple. CARDIOVASCULAR: Irregular rhythm, regular rate. No murmurs, rubs or gallops. ABDOMEN: Soft and nontender. Bowel sounds present. LUNGS: Diminished breath sounds bilaterally. No rales or wheezing. EXTREMITIES: +1 pitting edema bilaterally, improving from yesterday. NEUROLOGIC: Grossly intact. No focal neurological deficits. PSYCHIATRIC: Normal mood and affect. SKIN: Warm and dry. LABORATORY DATA: No labs were drawn today. IMPRESSION: 1. Resolving acute diastolic congestive heart failure. 2. Exacerbation of chronic obstructive pulmonary disease. PLAN: The patient can be discharged on Lasix 60 mg b.i.d. This should not be changed. The patient can also be discharged on a tapering dose of prednisone. Any further treatment per primary team and cardiac service. Noe Brandon DO [place], [place] PROGRESS NOTE NAME: MARY MACIAS UNIT #: [id number] ROOM: 403 DOCTOR: NOE BRANDON DO BIRTHDATE: [birth year] BELGICA ZUNIGA MD CM:PNTRANS [id number] NOE BRANDON DO 08/22/18 0342 interface
--- NOTE | ~2018-08-18 | PR ---
[place], [place] PROGRESS NOTE NAME: MARY MACIAS [facility] #: [id number] UNIT #: [id number] ROOM: 403 DOCTOR: EFRAIN MASON MD,BELGICA BIRTHDATE: [birth year] DOS: 08/20/2018 SUBJECTIVE: The patient independently seen and examined, fmck-[id number] encounter, history was confirmed. Physical examination performed, labs reviewed. Assessment and management for this note was personally completed. Note done by the medical service representative was approved as well. The patient continued to show improvement in the swelling of the lower extremity with reduction in shortness of breath. Denies any symptoms of coughing, wheezing or chest pain. PHYSICAL EXAMINATION: VITAL SIGNS: For the patient which were recorded showed the temperature noted as normal. The respiratory rate recorded 18, heart rate 74, blood pressure 124/68. Pulse oxygen saturation noted as 96% saturation on 3 liters nasal cannula. HEAD, EYES, EARS, NOSE, AND THROAT: Head was atraumatic. Eyes nonicterus. NECK: Supple. CARDIOVASCULAR SYSTEM: S1, S2 is audible. LUNGS: Noted without any wheeze or crackles. Breaths are noted mild to moderate decreased bilaterally. ABDOMEN: Soft, nontender. EXTREMITIES: Resolving edema. IMPRESSION: Progressive resolution of the acute congestive heart failure with diastolic dysfunction, peripheral edema. BMP was noted normal BUN and creatinine. Potassium was also noted normal. The CBC was noted as WBC count 16.1. Acute exacerbation of bronchial asthma as well. PLAN OF MANAGEMENT: Decrease the Solu-Medrol dose to 20 mg daily at the present time. Continuation of the oxygen supplementation and other treatment plan of management. Usual care. Discharge planning could be started. BELGICA ZUNIGA MD CM:PNTRANS [id number] BELGICA MASON MD 08/20/18 1227 interface
--- NOTE | ~2018-08-18 | PR ---
[place], [place] PROGRESS NOTE [id number] #: [id number] ROOM: 403 DOCTOR: EFRAIN MASON MD,BELGICA BIRTHDATE: [birth year] DOS: 08/21/2018 SUBJECTIVE: The patient was independently seen and examined, fetq-iq-gsuw encounter, history was confirmed. Physical examination performed labs were reviewed. Assessment and management personally completed. Note done by the medical superintendent approved. The patient noted comfortable at this time, resting on the bed without any acute distress, continue to show resolution edema of the lower extremity with the use of Lasix. The patient denies symptoms of fever or chills. OBJECTIVE: GENERAL: He has been lying in the bed at this time. Using oxygen supplementation nasal cannula. There were symptoms of distress. VITAL SIGNS: Normal temperature, respiratory rate 20, heart rate 60, blood pressure 135/78. Pulse oxygen saturation noted on 3 liters, 100% saturation. HEENT: Examination shows head was atraumatic. Eyes nonicterus. NECK: Supple. CARDIOVASCULAR: S1, S2 is audible. LUNGS: Scattered occasional crackles, no wheezing. ABDOMEN: Soft, nontender. EXTREMITIES: Resolving edema. IMPRESSION: Resolving acute congestive heart failure, diastolic dysfunction, exacerbation of chronic obstructive pulmonary disease. Discharge planning for patient per primary care physician. PLAN OF TREATMENT: The patient could be discharged on Lasix 60 mg b.i.d., tapering dose of prednisone and to continue his previous dose of prednisone 50 mg daily and continue all other treatment for patient as previously for the pulmonary disease. BELGICA ZUNIGA MD CM:PNTRANS [phone] BELGICA MASON MD 09/07/18 0938 interface
--- NOTE | ~2018-08-18 | CON ---
[place], [place] REPORT OF CONSULTATION NAME: MARY MACIAS [facility] #: [id number] UNIT #: [id number] ROOM: 403 DOCTOR: NOE GARDNER DO BIRTHDATE: [birth year] DOS: 08/19/2018 CONSULTATION FOR SERVICE: The hospitalist. REASON FOR CONSULTATION: Pneumonitis with known silicosis. HISTORY OF PRESENT ILLNESS: The patient is a 73-year-old male who presented to the ER with complaints of shortness of breath. He has noticed increasing shortness of breath over the past few days with increase in respiratory effort. The patient reports that he had recently seen his PCP and had his Lasix decreased from 120 of Lasix daily down to 40 of Lasix daily. The patient noted that he had to increase his oxygen from 4 liters to 5 liters. The patient also notes that he has had increasing bilateral lower leg swelling. The patient denies any fevers, chills, nausea, vomiting, diarrhea, constipation or any other complaints. The patient does follow with an outpatient basis on with Dr. Zuniga and has been keeping his regular followups. The patient was noted to have leukocytosis and tachypnea in the ER with a chest x-ray showing pulmonary fibrosis. He was started on Levaquin and given DuoNeb and Solu-Medrol and was also started on Lasix, sepsis bolus was avoided in the ER due to concomitant swelling. PAST MEDICAL HISTORY: Past medical problems, diastolic heart failure, chronic respiratory failure with hypoxia, coronary artery disease, chronic A-Fib, chronic back pain, chronic silicosis, cor pulmonale, generalized anxiety disorder, GERD, hyperlipidemia, hypertension, osteoporosis, oxygen dependent on 4 liters during the day and 6 liters at night with BiPAP, vitamin D deficiency. PAST SURGICAL HISTORY: History of coronary artery stent x 3, history of lung biopsy, history of carpal tunnel repair, history of cervical spinal fusion. SOCIAL HISTORY: The patient denies alcohol, illicit drug consumption. History of tobacco abuse, he quit 55 years ago, but smoked only for 1 year. FAMILY HISTORY: Father is at age 60 from a stroke. Mother is at age 60 from liver disease. ALLERGIES: CLINDAMYCIN. CURRENT MEDICATIONS: Albuterol HFA inhaler 1 puff twice a day as needed, alprazolam 0.25 mg twice a day as needed for anxiety, atorvastatin 40 mg at night, azelastine 2 sprays nasally as needed for allergies, calcium carbonate, vitamin D one tablet at night, vitamin D3 1000 units daily, Prolia 60 mg subq daily, furosemide 40 mg b.i.d., gabapentin 1200 mg b.i.d. with an additional 600 mg at dinnertime, DuoNeb 4 times a day as needed, mometasone 1 spray nasally q. 12 hours, Percocet 5/325 one daily as needed for pain, Protonix 40 mg daily, prednisone 20 mg daily, Xarelto 20 mg at bedtime, Aldactone 12.5 mg daily. REVIEW OF SYSTEMS: GENERAL: The patient denies fevers, chills, weight loss, weight gain. HEENT: Denies any vision changes, hearing loss, nasal discharge, ear discharge, [place], [place] REPORT OF CONSULTATION NAME: MARY MACIAS UNIT #: [id number] ROOM: 403 DOCTOR: NOE GARDNER DO BIRTHDATE: [birth year] or any other symptoms. CARDIOVASCULAR: Denies chest pain, palpitations or diaphoresis. RESPIRATORY: Reports shortness of breath, cough, wheezing, dyspnea on exertion. Denies hemoptysis, stridor, or sputum production. GASTROINTESTINAL: Denies abdominal pain, nausea, vomiting, diarrhea, constipation, or blood in the stools. GENITOURINARY: Denies any dysuria, hematuria or changes in urgency or frequency. NEUROLOGICAL: Denies any lightheadedness, dizziness or confusion. PSYCHIATRIC: Denies any depression, anxiety, substance abuse. ENDOCRINE: Denies any heat or cold intolerance. SKIN: Denies any new rashes, lesions, or ulcers. EXTREMITIES: Reports bilateral lower extremity edema. PHYSICAL EXAMINATION: VITAL SIGNS: Temperature of 98.2, pulse of 87, respiratory rate of 20, pulse ox of 93% on 3 liters nasal cannula. GENERAL APPEARANCE: Alert, awake, cooperative, mild distress. HEAD: Normocephalic, atraumatic. EYES: No lesions, no ulcerations, nonicteric. ENT: No lesions, scars, masses. NECK: Without lesions, without masses. Supple. HEART: Irregular rhythm consistent with atrial fibrillation with regular rate. LUNGS: Shortness of breath, diminished breath sounds bilaterally with rhonchi and wheezing and rales. ABDOMEN: Soft, obese abdomen, nontender to palpation. EXTREMITIES: Bilateral 2+ pitting lower extremity edema. NEUROLOGIC: Grossly intact. No neurological deficits. PSYCHIATRIC: Normal mood, normal affect. SKIN: Warm and dry. No rashes or ulcerations or lesions. LABORATORY DATA: CBC showed white blood cell count of 17.7, hemoglobin of 10.8, hematocrit of 35.2, platelet count of 404. CMP showed hyperglycemia at 127 with no other acute abnormalities. IMAGING: Chest x-ray showed stable pulmonary fibrosis with pleural thickening. No acute pulmonary process. IMPRESSION: 1. Acute exacerbation of chronic obstructive pulmonary disease. 2. Chronic silicosis. 3. Hypertension. 4. Acute exacerbation of congestive heart failure. 5. Coronary artery disease. 6. Hyperlipidemia. 7. Chronic oxygen dependency. 8. Generalized anxiety. 9. Chronic atrial fibrillation. 10. Vitamin D deficiency. [place], [place] REPORT OF CONSULTATION NAME: MARY MACIAS UNIT #: [id number] ROOM: 403 DOCTOR: NOE GARDNER DO BIRTHDATE: [birth year] TREATMENT PLAN: The patient was admitted to a monitored bed. Respiratory status appears stable. The patient was initially started on IV Levaquin, Solu-Medrol and Lasix b.i.d. At this time, it is felt that the patient's shortness of breath is low is due to underlying fluid retention from the recent change of the PCP going down on the patient's Lasix. Continue Lasix 40 b.i.d. in the short term to help with diuresis. The patient will eventually need to go back on his Lasix 60 oral b.i.d. Cardio is available on consult for further input on congestive heart failure. Steroids can be continued at 40 mg IV b.i.d. Antibiotic has been discontinued. Continue care of remaining medical issues per primary team. Noe Gardner DO BELGICA ZUNIGA MD CM:CONSTR:REPORT OF CONSULTATION 1137 08/20/18 0401 interface
[2018-08-18 12:46] VITALS: BP 115/72
[~2018-08-18 12:46] MED LIST changes: +DEMADEX10 M1 PO; +OXYGEN NAS
[2018-08-18 13:16] LABS: HEMATOCRIT 38.7 % (42.0-52.0); MEAN CELL VOLUME 76.2 fl (80.0-94.0); MEAN CORPUSCULAR HGB 23.6 pg (27.0-31.0); MEAN PLATELET VOLUME 9.7 fl (9.6-12.3); PLATELET COUNT AUTOMATED 416 10*3/uL (130-400); RED BLOOD COUNT 5.08 10*6/uL (4.50-5.90); RED CELL DISTRI WIDTH 19.1 % (0-14.5); WHITE BLOOD COUNT 18.7 10*3/uL (4.8-10.8)
[2018-08-18 13:28] LABS: ACT PARTIAL THROMBO TIME 42.2 SECONDS (20.8-31.5); INTERNATIONAL NORM RATIO 1.5 (2.0-3.5)
[2018-08-18 13:32] LABS: ALBUMIN 2.6 gm/dl (3.1-4.5); ALKALINE PHOSPHATASE 91 U/L (45-117); BUN 11 mg/dl (7-24); CHLORIDE 100 mmol/L (98-107); CREATININE 0.85 mg/dL (0.70-1.30); LIPASE 88 U/L (73-393); POTASSIUM 3.3 mmol/L (3.5-5.1); SGOT/AST 24 IU/L (3-35); SGPT/ALT 23 U/L (12-78); SODIUM 138 mmol/L (136-145); TOTAL PROTEIN 6.9 gm/dL (6.4-8.2)
[2018-08-18 13:33] LABS: TROPONIN I < 0.015 ng/ml (<0.045)
[2018-08-18 13:37] LABS: BASOPHILS 1 % (0-1); MICROCYTOSIS SLIGHT; OVALOCYTES FEW; PLATELET SUFFICIENCY HIGH (NORMAL); TOTAL CELLS COUNTED 100 #CELLS
[2018-08-18 14:09] VITALS: BP 92/55
[2018-08-18 15:30] VITALS: BP 109/63
[2018-08-18] MEDS ORDERED: ASPIR LOW81 MG PO (16:16)
[2018-08-18] MEDS ORDERED: IRON325 M1 PO (16:17)
[2018-08-18] MEDS ORDERED: FUROSEMIDE20 M1 PO (16:19)
[2018-08-18] MEDS ORDERED: POTASSIUM GLUCO99 MG PO (16:20)
[2018-08-18] MEDS ORDERED: XARE20MG PO (16:25)
[2018-08-18 20:00] VITALS: BP 118/69
[2018-08-19] VITALS: BP 121/84
[2018-08-19 07:51] LABS: BASO % 0.1 % (0.0-1.0); HEMATOCRIT 35.2 % (42.0-52.0); HEMOGLOBIN 10.8 g/dl (14.0-18.0); LYMPH # 1.5 10*3/uL (1.3-4.4); LYMPH % 8.3 % (27.0-41.0); MEAN CELL VOLUME 75.5 fl (80.0-94.0); MEAN CORPUSCULAR HGB 23.2 pg (27.0-31.0); MEAN CORPUSCULAR HGB CONC 30.7 g/dl (33.0-37.0); MEAN PLATELET VOLUME 9.6 fl (9.6-12.3); MONO # 0.8 10*3/uL (0.1-1.0); MONO % 4.2 % (3.0-9.0); NEUT # 15.2 10*3/uL (2.3-7.9); NEUT % 85.8 % (47.0-73.0); PLATELET COUNT AUTOMATED 404 10*3/uL (130-400); RED BLOOD COUNT 4.66 10*6/uL (4.50-5.90); RED CELL DISTRI WIDTH 19.3 % (0-14.5); WHITE BLOOD COUNT 17.7 10*3/uL (4.8-10.8)
[2018-08-19 08:18] LABS: ALBUMIN 2.3 gm/dl (3.1-4.5); ALKALINE PHOSPHATASE 80 U/L (45-117); BUN 19 mg/dl (7-24); CHLORIDE 100 mmol/L (98-107); CHOLESTEROL 219 mg/dL (<200); CREATININE 1.04 mg/dL (0.70-1.30); FREE T4 1.28 ng/dl (0.76-1.46); HDL CHOLESTEROL 51 mg/dl (40-60); LDL CHOLESTEROL 151 mg/dL (9-159); PHOSPHOROUS 3.5 mg/dL (2.5-4.9); POTASSIUM 3.6 mmol/L (3.5-5.1); SGOT/AST 17 IU/L (3-35); SGPT/ALT 18 U/L (12-78); SODIUM 138 mmol/L (136-145); TOTAL PROTEIN 6.4 gm/dL (6.4-8.2); TRIGLYCERIDES 85 mg/dl (<150); VLDL CHOLESTEROL 17 mg/dL (6-40)
[2018-08-19 08:23] LABS: THYROID STIM HORMONE (HS) 0.799 uIU/ml (0.358-4.75)
[2018-08-19 10:37] LABS: VITAMIN D, 25-HYDROXY 42.6 ng/mL (30-100)
[2018-08-19 12:00] VITALS: BP 106/64
[2018-08-19 16:00] VITALS: BP 107/72
[2018-08-19 20:00] VITALS: BP 108/78
[2018-08-20] VITALS: BP 129/87
[2018-08-20 06:20] LABS: BASO % 0.1 % (0.0-1.0); EOS % 0.1 % (1.0-4.0); HEMATOCRIT 35.2 % (42.0-52.0); HEMOGLOBIN 10.8 g/dl (14.0-18.0); LYMPH # 1.2 10*3/uL (1.3-4.4); LYMPH % 7.7 % (27.0-41.0); MEAN CELL VOLUME 75.4 fl (80.0-94.0); MEAN CORPUSCULAR HGB 23.1 pg (27.0-31.0); MEAN CORPUSCULAR HGB CONC 30.7 g/dl (33.0-37.0); MEAN PLATELET VOLUME 9.5 fl (9.6-12.3); MONO # 0.8 10*3/uL (0.1-1.0); MONO % 5.1 % (3.0-9.0); NEUT # 13.9 10*3/uL (2.3-7.9); NEUT % 85.8 % (47.0-73.0); PLATELET COUNT AUTOMATED 410 10*3/uL (130-400); RED BLOOD COUNT 4.67 10*6/uL (4.50-5.90); RED CELL DISTRI WIDTH 19.3 % (0-14.5); WHITE BLOOD COUNT 16.1 10*3/uL (4.8-10.8)
[2018-08-20 06:31] LABS: ALBUMIN 2.6 gm/dl (3.1-4.5); ALKALINE PHOSPHATASE 77 U/L (45-117); BUN 23 mg/dl (7-24); CHLORIDE 99 mmol/L (98-107); POTASSIUM 4.1 mmol/L (3.5-5.1); SGOT/AST 21 IU/L (3-35); SGPT/ALT 19 U/L (12-78); SODIUM 137 mmol/L (136-145); TOTAL PROTEIN 6.3 gm/dL (6.4-8.2)
[2018-08-20 08:00] VITALS: BP 124/68
[2018-08-20 12:00] VITALS: BP 106/67
[2018-08-20 16:00] VITALS: BP 97/57
[2018-08-20 20:00] VITALS: BP 132/72
[2018-08-21] VITALS: BP 135/78
[2018-08-21 06:17] LABS: ALBUMIN 2.3 gm/dl (3.1-4.5); ALKALINE PHOSPHATASE 67 U/L (45-117); BUN 21 mg/dl (7-24); CHLORIDE 102 mmol/L (98-107); CREATININE 0.94 mg/dL (0.70-1.30); PHOSPHOROUS 2.3 mg/dL (2.5-4.9); POTASSIUM 3.6 mmol/L (3.5-5.1); SGOT/AST 18 IU/L (3-35); SGPT/ALT 17 U/L (12-78); SODIUM 140 mmol/L (136-145); TOTAL PROTEIN 5.6 gm/dL (6.4-8.2)
[2018-08-21 08:00] VITALS: BP 119/71
[2018-08-21 08:05] VITALS: BP 124/68
[2018-08-21] MEDS ORDERED: PREDNISONE10 MG PO (10:33)
[2018-08-21] MEDS ORDERED: FUROSEMIDE20 M1 PO (10:33)
[2018-08-21 12:00] VITALS: BP 106/64
[2018-08-21 16:00] VITALS: BP 104/61
== END 2018-08-21 15:35 | disposition home health service (06) | DRG 871 ==
LOC: ED 12:46 → 4E 14:48
PROVIDERS: Emergency Medicine; Registered Nurse
PROC: 5A09357 Assistance with Respiratory Ventilation, Less than 24 Consecutive Hours, Continuous Positive Airway Pressure (ICD-10-PCS; principal; 2018-08-19)
PROC: 5A09357 Assistance with Respiratory Ventilation, Less than 24 Consecutive Hours, Continuous Positive Airway Pressure (ICD-10-PCS; 2018-08-20)
DX: A41.9 Sepsis, unspecified organism (principal); J18.9 Pneumonia, unspecified organism; E43 Unspecified severe protein-calorie malnutrition; I50.33 Acute on chronic diastolic (congestive) heart failure; J96.11 Chronic respiratory failure with hypoxia; J44.1 Chronic obstructive pulmonary disease with (acute) exacerbation; J44.0 Chronic obstructive pulmonary disease with (acute) lower respiratory infection; J45.901 Unspecified asthma with (acute) exacerbation; R65.20 Severe sepsis without septic shock; I27.81 Cor pulmonale (chronic); I25.10 Atherosclerotic heart disease of native coronary artery without angina pectoris; E78.5 Hyperlipidemia, unspecified; J84.10 Pulmonary fibrosis, unspecified; F41.1 Generalized anxiety disorder; I48.2 Chronic atrial fibrillation; E55.9 Vitamin D deficiency, unspecified; D50.9 Iron deficiency anemia, unspecified; R73.9 Hyperglycemia, unspecified; E87.6 Hypokalemia; I11.0 Hypertensive heart disease with heart failure; G47.00 Insomnia, unspecified; Z95.5 Presence of coronary angioplasty implant and graft; Z98.1 Arthrodesis status; Z82.3 Family history of stroke; Z88.1 Allergy status to other antibiotic agents; Z99.81 Dependence on supplemental oxygen; Z79.51 Long term (current) use of inhaled steroids; Z79.899 Other long term (current) drug therapy; Z79.1 Long term (current) use of non-steroidal anti-inflammatories (NSAID); Z98.42 Cataract extraction status, left eye; Z98.41 Cataract extraction status, right eye; Z68.27 Body mass index [BMI] 27.0-27.9, adult

== ENCOUNTER 2018-09-04 17:33 | Inpatient (IN) | payer OTHER ==
[~2018-09-04] VITALS: Ht 172.7 cm; Wt 76.4 kg
--- NOTE | ~2018-09-04 | EKG ---
[place], [place] ELECTROCARDIOGRAM REPORT NAME: MARY MACIAS UNIT #: [id number] ROOM: DOCTOR: EPIPHANY DRAFT REPORT BIRTHDATE: [birth year] [facility] Test Date: 2018-09-04 Test Time: 18:20:49 Pat Name: MARY MACIAS Department: Room: Gender: [place]: : 1945 Requested By: ANAND SKINNER Order Number: [id number] Reading MD: Measurements Intervals [place] Rate: 87 P: -7 ME: 152 QRS: -43 QRSD: 114 T: 90 QT: 381 QTc: 459 Interpretive Statements Sinus rhythm Incomplete left bundle branch block Baseline wander in lead(s) V1 Compared to ECG 08/18/2018 13:03:50 Left bundle-branch block now present Wandering atrial pacemaker no longer present Atrial-paced complex(es) or rhythm no longer present Left anterior fascicular block no longer present CM:EKGRPT:ELECTROCARDIOGRAM REPORT 1820 1524 ANAND SALES DRAFT REPORT ANAND SKINNER M.D.
--- NOTE | ~2018-09-04 | PR ---
[place], [place] PROGRESS NOTE NAME: MARY MACIAS [facility] #: [id number] UNIT #: [id number] ROOM: 523 DOCTOR: EFRAIN MASON MD,BELGICA BIRTHDATE: [birth year] DOS: 09/06/2018 SUBJECTIVE: The patient was noted comfortable at this time, sitting on the chair in his room in the Intensive Care Unit. Acute shortness of breath was noted and edema of the upper and the lower extremities were resolving, but not completely resolved. Denies symptoms of fever or chills. Shortness of breath has decreased, not noted at rest with oxygen requirement. The patient was also continued to be noted with gradual reduction. Denies symptoms of fever or chills. Denies symptoms of hemoptysis. Denies symptoms of nausea, vomiting, or diarrhea. The patient denies symptoms of headaches. He has been using the BiPAP that was ordered at setting of 16/10 at nighttime and sometimes during the day p.r.n. The oxygen supplementation, continued nasal cannula. Remaining systems were reviewed, they were noted all negative. OBJECTIVE: VITAL SIGNS: For the patient, which were recorded shows normal temperature, respiratory rate 20, heart rate of 92, blood pressure 111/65-118/77. Pulse ox saturation on 6 liters canula 97% saturation. HEENT: Head was atraumatic. Eyes, nonicterus. NECK: Supple. CARDIOVASCULAR: S1, S2 audible. LUNGS: Inspiratory crackles scattered. No wheezing. ABDOMEN: Soft, nontender. Bowel sounds present. EXTREMITIES: Still shows edema of the upper and lower extremities. SKIN: Chronic changes including bruising of the skin, unchanged. CENTRAL NERVOUS SYSTEM: Cranial nerves 2-12 intact. MUSCULOSKELETAL: Noted without any acute deformities. LABORATORY DATA: Blood culture on admission showed no bacterial growth on . Final results pending. CBC: WBC count 18.3, hemoglobin 10.9, platelet count were normal. CMP that was done on 09/06/2018, glucose 141, normal BUN and creatinine. IMPRESSION: 1. The patient who has been noted with current gradual resolution of acute congestive heart failure, the patient diastolic dysfunction. 2. Acute congestive heart failure. 3. [id number] hypoxic respiratory failure. 4. 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 PLAN OF TREATMENT: Continue current diuretics, bronchodilators, oxygen supplementation, further reduction of Solu-Medrol 40 mg b.i.d. dosing today. All other previous treatment plan and management to be continued as in progress including the use of BiPAP, oxygen supplementation, and other therapies as in progress. Usual care. Supportive care, other treatment plan of management and therapies. [place], [place] PROGRESS NOTE NAME: MARY MACIAS UNIT #: [id number] ROOM: 523 DOCTOR: BELGICA ORTEGA MD BIRTHDATE: [birth year] BELGICA ZUNIGA MD CM:OLIVIA 21 11 BELGICA MASON MD 09/06/18 161 interface
--- NOTE | ~2018-09-04 | PR ---
[place], [place] PROGRESS NOTE [facility]: [id number] UNIT #: [id number] ROOM: 523 DOCTOR: JANIS WALLIS MD BIRTHDATE: [birth year] DOS: 09/06/2018 CARDIOLOGY FOLLOWUP VISIT NOTE REASON FOR VISIT: Pulmonary edema and congestive heart failure. HISTORY OF PRESENT ILLNESS: The patient is feeling better. Denies any chest pain or palpitations. Still is short of breath, but no PND, no orthopnea. Mild respiratory distress while communicating. No fever and chills. REVIEW OF SYSTEMS: Review of other 10-system negative except as mentioned above. RHYTHM STRIPS: The patient was in sinus rhythm. PHYSICAL EXAMINATION: VITAL SIGNS: Blood pressure was 103/59, pulse 98, respiratory rate 24, weight 76.8 kilos with a BMI 25.7. GENERAL: Alert, comfortable, in mild respiratory distress. HEENT: Pupils round and equal, no jaundice. NECK: Supple, no distended neck veins, no carotid bruit. CHEST: Nontender, LUNGS: Few scattered rhonchi, but fair air entry bilaterally. HEART: Irregular, grade 1/6 systolic murmur. ABDOMEN: Benign, nontender. Bowel sounds normal. EXTREMITIES: Showed 1+ edema with chronic stasis dermatitis. Distal pulses are fair. SKIN: Warm and dry. No cyanosis, no clubbing. RECTAL: Deferred. GENITOURINARY: Deferred. MUSCULOSKELETAL: No joint tenderness, swelling. MEDICATIONS AND LABS: Reviewed. IMPRESSION: 1. Pulmonary edema, improved. 2. Chronic diastolic heart failure. 3. Pneumonitis with possible sepsis. 4. Coronary artery disease, status post multiple stents. 5. ____. 6. Home oxygen dependent. 7. Paroxysmal atrial fibrillation. RECOMMENDATIONS: 1. Continue IV diuretics for another 24-48 hours. 2. Continue his aspirin and beta blockers. 3. A 2D echo from 05/01/2018 showed normal LV function. 4. Continue his Xarelto for his atrial fibrillation. The above treatment plan discussed with his who is at bedside. [place], [place] PROGRESS NOTE NAME: MARY MACIAS [facility] #: [id number] UNIT #: [id number] ROOM: 523 DOCTOR: JANIS WALLIS MD BIRTHDATE: [birth year] There is no further cardiac testing at this time. JANIS WALLIS MD CM:PNTRANS 20 10 JANIS WALLIS MD 09/06/182110 interface
--- NOTE | ~2018-09-04 | PR ---
[place], [place] PROGRESS NOTE NAME: MARY MACIAS [facility] #: [id number] UNIT #: [id number] ROOM: 523 DOCTOR: EFRAIN MASON MD,BELGICA BIRTHDATE: [birth year] DOS: 09/07/2018 PULMONARY PROGRESS NOTE SUBJECTIVE: The patient has been noted comfortable at this time, using his own CPAP from home. Oxygen supplementation requirement has been progressively decreased. There were no symptoms of chest pain, fever or chills, and symptoms of hemoptysis. OBJECTIVE: VITAL SIGNS: Normal temperature, respiratory rate is 18, heart rate is 84, and blood pressure is 112/70. The pulse oxygen saturation on 5 liters nasal cannula is 93% saturation. HEENT: On examination, no acute change. NECK: Supple. CARDIOVASCULAR SYSTEM: S1, S2 is audible. LUNGS: Inspiratory crackles. No wheezing. ABDOMEN: Soft, nontender. EXTREMITIES: Resolving edema of the lower extremities. IMPRESSION: The patient has been noted with progressive improvement and resolution of acute on chronic hypoxic respiratory failure, exacerbation of chronic obstructive pulmonary disease as well as congestive heart failure, diastolic dysfunction. PLAN OF THERAPY: Use Solu-Medrol further to 40 mg daily dosing. Continue the CPAP from home, the oxygen supplementation. Continue diuretics therapy for this patient as well. Potential discharge home could be considered in the morning with further continued improvement and resolution of acute symptoms. BELGICA ZUNIGA MD CM:PNTRANS 1245 [id number] BELGICA MASON MD 09/08/18 0059 interface
--- NOTE | ~2018-09-04 | PR ---
[place], [place] PROGRESS NOTE NAME: MARY MACIAS [facility] #: [id number] UNIT #: [id number] ROOM: 523 DOCTOR: EFRAIN MASON MD,BELGICA BIRTHDATE: [birth year] DOS: 09/08/2018 SUBJECTIVE: The patient was noted comfortable at this time, resting on the bed. The patient was independently seen and examined, [id number] encounter, history was confirmed. Physical examination was performed. Labs were reviewed. Assessment and management throughout the visit were personally completed. The note done by the medical planner was approved. The patient has been noted comfortable at this time with continued improvement in the symptoms of shortness of breath, edema, pain in the lower extremity. Currently, resting in the bed. The patient denies symptoms of fever or chills. PHYSICAL EXAMINATION: VITAL SIGNS: Normal temperature, respiratory rate 20, heart rate 88, blood pressure 112/68. Pulse oxygen saturation on 5 liters nasal cannula 93% saturation. HEENT: Head was atraumatic. Eyes nonicterus. NECK: Supple. CARDIOVASCULAR: S1, S2 audible. LUNGS: Without any wheeze or crackles. ABDOMEN: Soft, nontender. Bowel sounds present. EXTREMITIES: Without any acute edema. IMPRESSION: The patient with progressive improvement and resolution of the acute on chronic hypoxic respiratory failure, resolving acute exacerbation of chronic obstructive pulmonary disease, congestive heart failure, diastolic dysfunction. PLAN OF TREATMENT: Discharge today with outpatient followup. Tapering dose of prednisone to his usual dose of 50 mg daily to be continued. Continue in the meantime other therapy, plan of management and care plan. Usual care. Supportive care and therapies. BELGICA ZUNIGA MD CM:PNTRANS 1248 BELGICA MASON MD 09/09/18 0018 interface
--- NOTE | ~2018-09-04 | CON ---
[place], [place] REPORT OF CONSULTATION NAME: MARY MACIAS [facility] #: [id number] UNIT #: [id number] ROOM: [facility] DOCTOR: BELGICA ORTEGA MD BIRTHDATE: [birth year] DOS: 09/05/2018 PULMONARY CONSULTATION, EVALUATION AND MANAGEMENT CONSULTATION REQUESTED BY: Hospitalist service. REASON FOR CONSULTATION: For assessment of symptoms of shortness of breath. HISTORY OF PRESENT ILLNESS: This is a 73-year-old white male with a past history of advanced pulmonary silicosis with chronic severe hypoxic respiratory failure, bronchial asthma, steroid dependency and obstructive sleep apnea disorder and frequent hospitalizations. The patient presented to the hospital and admitted on 09/04/2018. The patient came into the hospital with symptoms of having increased shortness of breath has been noted worsened at home. The patient has contacted the EMS. EMS brought to the hospital for further care. The patient's oxygen saturation noted 75% on 10 liter nasal cannula. He has been noted with mild cough, which were not noted significant, but simply wheezing. The edema of the lower extremity. The patient has been improving since the patient was taking Lasix 60 mg b.i.d., but stated he did not take the medication of Lasix yesterday afternoon. He has been started on the BiPAP. Other therapy during hospitalization including corticosteroids admitted to the hospital. This afternoon, the patient was seen, he has been reported yet. Shortness of breath, decreased oxygen requirement as well. The patient denies symptoms of fever or chills. Denies symptoms of hemoptysis. The cough has been noted very minimal. REVIEW OF SYSTEMS: CONSTITUTIONAL: Fatigue and tiredness noted. Symptoms of fever or chills. EYES: Denies any burning, redness, or tenderness. EARS, NOSE, THROAT SYMPTOMS: Denies sore throat, hoarseness, otalgia, postnasal drainage or epistaxis. CARDIOVASCULAR: Denies Anginal pain, edema, or pain of the lower extremities. GASTROINTESTINAL: Denies dysphagia, nausea, vomiting, diarrhea, abdominal pain, hematemesis, melena, or hematochezia. SKIN: Chronic intermittent bruising related to steroid dependency and side effect. CENTRAL NERVOUS SYSTEM: General weakness was noted any symptoms of focal neurologic deficit, seizures. Remaining systems were reviewed. They were noted all negative. PAST MEDICAL HISTORY, SURGICAL HISTORY, SOCIAL HISTORY, AND FAMILY HISTORY: Reviewed for the patient since my consultation of 08/19/2018 and remains unchanged. MEDICATIONS: Current administered medication, which were noted on this hospitalization as use of Neutra-Phos, folic acid, Xarelto, potassium gluconate, aspirin, Lasix 40 mg IV b.i.d., Protonix, Mucinex, ferrous sulfate, gabapentin, IV Solu-Medrol 60 mg q. 8 hours, DuoNeb, cefepime and Zithromax. [place], [place] REPORT OF CONSULTATION NAME: MARY MACIAS UNIT #: [id number] ROOM: [facility] DOCTOR: EFRAIN MASON MD,BELGICA BIRTHDATE: [birth year] DRUG ALLERGIES: THE PATIENT NOTED ALLERGY TO CLINDAMYCIN. PHYSICAL EXAMINATION: GENERAL: A 73-year-old white male, currently noted comfortable at this time, resting on his bed without any distress. Height of 5 feet 8 inches, weight of 182 pounds, BMI 27 recorded. VITAL SIGNS: The patient normal temperature since admission, respiratory rate [id number], heart rate of 84-97, blood pressure 117-73 to 106/64, pulse oxygen saturation on 7 liters nasal cannula 100% BiPAP for the patient was 98% saturation. HEENT: Examination shows head was atraumatic. Eyes nonicterus. NECK: Supple. CARDIOVASCULAR: S1, S2 heard. LUNGS: Noted generally decreased breath sounds in the lungs bilaterally with scattered crackles of the lung, which is chronic inspiratory. ABDOMEN: Soft, nontender. EXTREMITIES: Mild edema in lower extremities. VISIBLE SKIN: Bruising of the skin and dryness of skin, which is noted chronic issue. CENTRAL NERVOUS SYSTEM: Cranial nerves 2-12 intact. MUSCULOSKELETAL: Noted without acute deformities. LABORATORY DATA: CBC that was done yesterday, WBC count 16.1, hemoglobin 11.1, and platelet count were normal. CMP that was done 09/04/2018, glucose 147, BUN normal, creatinine was normal. Albumin 2.5. The CBC of the patient this morning, WBC count was noted 12.5, hemoglobin of 10.6, hematocrit 37.4 and platelet count was noted as normal. Influenza B, nasal washing antigen this morning negative. CMP: Normal BUN and creatinine. Glucose 155. The phosphorus was 1.8, which was decreased. CMP this morning: Normal BUN and creatinine. The PT, PTT, INR 1.2, normal PTT. Chest x-ray that was done, 1 view with maximum 09/04/2018 unable to identify any superimposed process because of diffuse fibrotic area and known history of silicosis lung massive pulmonary fibrosis. The CT scan of chest was done was noted possibility of mild increased edema of the lung noted with a small right pleural fluid. There were no areas of infiltration noted, which could be considered acute. IMPRESSION: 1. The patient will be admitted to the hospital with chronic hypoxic respiratory failure, result of acute exacerbation of bronchial asthma in combination with acute congestive heart failure, diastolic dysfunction. 2. Mild hyperphosphatemia. 3. Chronic steroid dependency as well. 4. History of progressive massive pulmonary fibrosis as well. 5. General weakness and fatigue secondary to all of the above. PLAN OF MANAGEMENT: The dose of Solu-Medrol will be decreased to a lower dose 40 mg q. 8 hours a day. Further reduction will be done tomorrow morning. The Zithromax and cefepime will be discontinued as necessary. There were no signs noted clinically acute infection, so they will be discontinued. Monitor patient in case of any signs of infection if the patient develops future, could be [place], [place] REPORT OF CONSULTATION [facility]: [id number] UNIT #: [id number] ROOM: [facility] DOCTOR: EFRAIN MASON MD,BELGICA BIRTHDATE: [birth year] started on the antibiotics. Continue IV diuretics. Oxygen supplementation has been titrated done personally from 73 this morning and this afternoon at bedside 3.5 liters. Pulse ox saturation recorded as 95%-96% saturation with that. The BiPAP could be continued at nighttime and p.r.n. during the day. Continue to monitor electrolytes. Other therapy, plan of management. Usual care, other than supportive plan of treatment and care. Other additional treatment changes will be recommended based on progression of his illness. Thanks for allowing me to participate in the care of this patient. BELGICA ZUNIGA MD CM:CONSTR:REPORT OF CONSULTATION 1336 09/05/18 1751 interface
--- NOTE | ~2018-09-04 | CON ---
[place], [place] REPORT OF CONSULTATION NAME: MARY MACIAS [facility] #: [id number] UNIT #: [id number] ROOM: [facility] DOCTOR: BIMAL RING,JANIS BIRTHDATE: [birth year] DOS: 09/05/2018 REASON FOR CONSULTATION: Congestive heart failure. CLINICAL HISTORY: The patient is a 73-year-old gentleman with history of congestive heart failure, COPD, chronic atrial fibrillation and coronary artery disease who presents to the Emergency Room for shortness of breath for the past several days. He was also found to be hypoxic in the Emergency Room. His oxygen saturation is 75% on 10 liters of oxygen via nasal cannula. His shortness of breath is especially progressed for the past 2 days with edema of the feet, but he denied any chest pain, palpitation, or dizziness. He did have some left shoulder pain. He was admitted to the hospital and Cardiology was consulted for further recommendations. At the time of my examination, the patient is alert, comfortable, in no acute distress. Denies any chest pain. No PND or orthopnea. His breathing is much better, but still has some shortness of breath, no orthopnea, no fever and chills, no cough, no hemoptysis, no neurologic symptoms, no musculoskeletal symptoms, no genitourinary symptoms. REVIEW OF SYSTEMS: Review of the 10 systems negative except as mentioned above. PAST MEDICAL HISTORY: 1. Coronary artery disease. 2. Chronic diastolic heart failure. 3. Chronic atrial fibrillation. 4. COPD, on home oxygen. 5. Hypertension. 6. Anemia. 7. ____. 8. Chronic back pain. 9. Chronic respiratory failure. 10. Pulmonary fibrosis. 11. Sleep apnea. 12. Chronic stasis dermatitis of the legs. PAST SURGICAL HISTORY: History of cardiac stents, history of carpal tunnel repair and history of cervical spinal fusion. SOCIAL HISTORY: The patient currently does not smoke or drink, does not use illicit drugs. FAMILY HISTORY: Mother in his 60s from liver disease. Father in his 60s from stroke. ALLERGIES: THE PATIENT IS ALLERGIC TO CLINDAMYCIN. HOME MEDICATIONS: Reviewed. REVIEW OF THE DIAGNOSTIC TESTS: EKG showed sinus rhythm with incomplete left bundle-branch block. His labs reviewed. Echo from April 2018 showed EF 55-60%, diastolic dysfunction. Enlarged right ventricle. Trace of tricuspid [place], [place] REPORT OF CONSULTATION NAME: [facility] #: [id number] UNIT #: [id number] ROOM: [facility] DOCTOR: BIMAL RING,JANIS BIRTHDATE: [birth year] regurgitation. EKG, labs, and imaging studies reviewed. PHYSICAL EXAMINATION: VITAL SIGNS: Blood pressure 117/73, pulse 84, respiration is 20. Weight 82.6 kg, BMI 27.7. NEUROLOGIC: Alert, comfortable, in no acute distress. NECK: Supple, no distended neck veins, no carotid bruit. CHEST: Symmetrical, nontender. LUNGS: Few scattered rhonchi, diminished at bases. Few basilar rales. HEART: Irregular. No S3. Grade 1/6 systolic murmur. ABDOMEN: Benign, nontender. Bowel sounds normal. EXTREMITIES: Showed 1-2+ edema. Distal pulses are fair. SKIN: Warm and dry. No cyanosis, no clubbing. RECTAL: Deferred. GENITOURINARY: Deferred. MUSCULOSKELETAL SYSTEM: No joint tenderness or swelling. IMPRESSION: 1. Acute on chronic diastolic heart failure. 2. Acute on chronic respiratory failure. 3. Pneumonitis and possible sepsis. 4. Paroxysmal atrial fibrillation. 5. Coronary artery disease, status post multiple stents. 6. Hypertension. 7. Home oxygen dependent. RECOMMENDATIONS: 1. Continue his IV diuretics 40 mg of Lasix q.12 hours and monitor daily weights, ins and outs and renal function as well as blood pressures. 2. Continue his aspirin. 3. Resume his beta blockers at lower dose of 12.5 mg twice a day and monitor his heart rate and blood pressures. 4. A 2D echo on April 2018 reviewed. No further cardiac testing at this time. The above treatment and plan discussed with Mr. Macias and his and his family members number and all the questions were answered. JANIS WALLIS MD CM:CONSTR:REPORT OF CONSULTATION 03 09/05/18 183 interface
--- NOTE | ~2018-09-04 | PR ---
[place], [place] PROGRESS NOTE NAME: MARY MACIAS [facility] #: [id number] UNIT #: [id number] ROOM: 523 DOCTOR: HAYLEE TERRAZAS BIRTHDATE: [birth year] DOS: 09/08/2018 PULMONARY PROGRESS NOTE SUBJECTIVE: The patient has been noted comfortable at this time using his own CPAP. The patient states he is feeling very good today. He denies symptoms of chest pain, fevers or chills. Denies symptoms of hemoptysis. OBJECTIVE: VITAL SIGNS: Normal temperature, respiratory rate is 20, heart rate 82, blood pressure 112/60, pulse oxygen saturation on 5 liters of nasal cannula is 93%. HEENT: On examination, atraumatic, nonicterus. NECK: Supple. CARDIOVASCULAR: S1, S2 is audible. LUNGS: Clear throughout. ABDOMEN: Soft, nontender. EXTREMITIES: Resolving edema. ASSESSMENT: The patient has noted with improvement of acute on chronic hypoxic respiratory failure, exacerbation of chronic obstructive pulmonary disease as well as congestive heart failure, diastolic dysfunction. PLAN OF THERAPY: The patient can be discharged from a pulmonary standpoint at this time on a steroid taper with no antibiotics necessary. It is recommended that the patient can go up on his Lasix as well. HAYLEE TERRAZAS DO BELGICA ZUNIGA MD CM:PNTRANS [id number] HAYLEE TERRAZAS 09/09/18 0300 interface
[~2018-09-04 17:33] MED LIST changes: +ASPIR LOW81 MG PO; +FUROSEMIDE20 M1 PO; +IRON325 M1 PO; +POTASSIUM GLUCO99 MG PO
[2018-09-04 17:36] VITALS: BP 145/82
[2018-09-04 18:03] LABS: BASO % 0.2 % (0.0-1.0); EOS % 0.1 % (1.0-4.0); HEMATOCRIT 37.2 % (42.0-52.0); HEMOGLOBIN 11.1 g/dl (14.0-18.0); LYMPH # 3.1 10*3/uL (1.3-4.4); MEAN CELL VOLUME 77.2 fl (80.0-94.0); MEAN CORPUSCULAR HGB CONC 29.8 g/dl (33.0-37.0); MEAN PLATELET VOLUME 9.8 fl (9.6-12.3); MONO # 0.5 10*3/uL (0.1-1.0); NEUT # 12.3 10*3/uL (2.3-7.9); NEUT % 76.6 % (47.0-73.0); PLATELET COUNT AUTOMATED 396 10*3/uL (130-400); RED BLOOD COUNT 4.82 10*6/uL (4.50-5.90); RED CELL DISTRI WIDTH 19.1 % (0-14.5); WHITE BLOOD COUNT 16.1 10*3/uL (4.8-10.8)
[2018-09-04 18:09] VITALS: BP 115/73
[2018-09-04 18:20] LABS: ALBUMIN 2.5 gm/dl (3.1-4.5); ALKALINE PHOSPHATASE 89 U/L (45-117); BUN 14 mg/dl (7-24); CHLORIDE 105 mmol/L (98-107); CREATININE 1.09 mg/dL (0.70-1.30); POTASSIUM 3.7 mmol/L (3.5-5.1); SGOT/AST 22 IU/L (3-35); SGPT/ALT 16 U/L (12-78); SODIUM 140 mmol/L (136-145); TOTAL PROTEIN 6.5 gm/dL (6.4-8.2)
[2018-09-04 19:09] LABS: ABG BASE EXCESS 1.7 mmol/L (-2.0-2.0); ABG HCO3 25.7 mmol/l (22-26); ABG O2 SATURATION 99.5 % (95-97); ARTERIAL BLOOD GAS PH 7.423 (7.35-7.45)
[2018-09-04 19:10] VITALS: BP 109/74
[2018-09-04 20:00] VITALS: BP 115/74
[2018-09-04] MEDS ORDERED: LASIX20 MG PO (20:08)
[2018-09-04 21:24] LABS: ACT PARTIAL THROMBO TIME 34.3 SECONDS (20.8-31.5); INTERNATIONAL NORM RATIO 1.4 (2.0-3.5)
[2018-09-05] VITALS: BP 106/64
[2018-09-05 04:00] VITALS: BP 115/74
[2018-09-05 06:38] LABS: BASO % 0.1 % (0.0-1.0); HEMATOCRIT 34.7 % (42.0-52.0); HEMOGLOBIN 10.6 g/dl (14.0-18.0); LYMPH # 0.9 10*3/uL (1.3-4.4); MEAN CELL VOLUME 76.3 fl (80.0-94.0); MEAN CORPUSCULAR HGB 23.3 pg (27.0-31.0); MEAN CORPUSCULAR HGB CONC 30.5 g/dl (33.0-37.0); MEAN PLATELET VOLUME 9.6 fl (9.6-12.3); MONO # 0.3 10*3/uL (0.1-1.0); MONO % 2.1 % (3.0-9.0); NEUT # 11.2 10*3/uL (2.3-7.9); NEUT % 89.9 % (47.0-73.0); PLATELET COUNT AUTOMATED 379 10*3/uL (130-400); RED BLOOD COUNT 4.55 10*6/uL (4.50-5.90); RED CELL DISTRI WIDTH 19.1 % (0-14.5); WHITE BLOOD COUNT 12.5 10*3/uL (4.8-10.8)
[2018-09-05 06:42] LABS: ACT PARTIAL THROMBO TIME 29.7 SECONDS (20.8-31.5); INTERNATIONAL NORM RATIO 1.2 (2.0-3.5)
[2018-09-05 07:01] LABS: ALBUMIN 2.4 gm/dl (3.1-4.5); ALKALINE PHOSPHATASE 77 U/L (45-117); BUN 14 mg/dl (7-24); CHLORIDE 106 mmol/L (98-107); CREATININE 0.88 mg/dL (0.70-1.30); PHOSPHOROUS 1.8 mg/dL (2.5-4.9); POTASSIUM 3.7 mmol/L (3.5-5.1); SGOT/AST 15 IU/L (3-35); SGPT/ALT 15 U/L (12-78); SODIUM 141 mmol/L (136-145); TOTAL PROTEIN 6.2 gm/dL (6.4-8.2)
[2018-09-05 07:10] LABS: THYROID STIM HORMONE (HS) 0.595 uIU/ml (0.358-4.75)
[2018-09-05 08:00] VITALS: BP 111/75
[2018-09-05 12:00] VITALS: BP 117/73
[2018-09-05 16:00] VITALS: BP 113/77
[2018-09-05 20:00] VITALS: BP 112/71
[2018-09-06] VITALS: BP 134/71
[2018-09-06 04:00] VITALS: BP 118/77
[2018-09-06 05:41] LABS: BASO % 0.1 % (0.0-1.0); HEMATOCRIT 35.1 % (42.0-52.0); HEMOGLOBIN 10.9 g/dl (14.0-18.0); LYMPH % 5.7 % (27.0-41.0); MEAN CELL VOLUME 76.3 fl (80.0-94.0); MEAN CORPUSCULAR HGB 23.7 pg (27.0-31.0); MEAN CORPUSCULAR HGB CONC 31.1 g/dl (33.0-37.0); MEAN PLATELET VOLUME 9.7 fl (9.6-12.3); MONO % 5.2 % (3.0-9.0); NEUT # 16.1 10*3/uL (2.3-7.9); NEUT % 88.2 % (47.0-73.0); PLATELET COUNT AUTOMATED 397 10*3/uL (130-400); RED CELL DISTRI WIDTH 19.3 % (0-14.5); WHITE BLOOD COUNT 18.3 10*3/uL (4.8-10.8)
[2018-09-06 05:43] LABS: ALBUMIN 2.4 gm/dl (3.1-4.5); ALKALINE PHOSPHATASE 70 U/L (45-117); BUN 18 mg/dl (7-24); CHLORIDE 103 mmol/L (98-107); CREATININE 0.77 mg/dL (0.70-1.30); PHOSPHOROUS 2.4 mg/dL (2.5-4.9); POTASSIUM 3.5 mmol/L (3.5-5.1); SGOT/AST 12 IU/L (3-35); SGPT/ALT 13 U/L (12-78); SODIUM 141 mmol/L (136-145); TOTAL PROTEIN 6.2 gm/dL (6.4-8.2)
[2018-09-06 08:00] VITALS: BP 111/65
[2018-09-06 12:00] VITALS: BP 103/59
[2018-09-06 17:00] VITALS: BP 124/82
[2018-09-06 20:00] VITALS: BP 126/68
[2018-09-07] VITALS: BP 125/67
[2018-09-07 06:52] LABS: BASO % 0.1 % (0.0-1.0); HEMATOCRIT 35.7 % (42.0-52.0); LYMPH # 1.1 10*3/uL (1.3-4.4); MEAN CELL VOLUME 75.8 fl (80.0-94.0); MEAN CORPUSCULAR HGB 23.4 pg (27.0-31.0); MEAN CORPUSCULAR HGB CONC 30.8 g/dl (33.0-37.0); MEAN PLATELET VOLUME 9.6 fl (9.6-12.3); MONO # 1.1 10*3/uL (0.1-1.0); MONO % 7.4 % (3.0-9.0); NEUT % 84.8 % (47.0-73.0); PLATELET COUNT AUTOMATED 380 10*3/uL (130-400); RED BLOOD COUNT 4.71 10*6/uL (4.50-5.90); RED CELL DISTRI WIDTH 19.4 % (0-14.5); WHITE BLOOD COUNT 15.4 10*3/uL (4.8-10.8)
[2018-09-07 07:23] LABS: BUN 16 mg/dl (7-24); CHLORIDE 103 mmol/L (98-107); PHOSPHOROUS 2.1 mg/dL (2.5-4.9); POTASSIUM 3.5 mmol/L (3.5-5.1); SODIUM 141 mmol/L (136-145)
[2018-09-07 08:00] VITALS: BP 112/64
[2018-09-07 12:00] VITALS: BP 112/70
[2018-09-07 16:00] VITALS: BP 108/67
[2018-09-07 20:00] VITALS: BP 120/69
[2018-09-08] VITALS: BP 131/64
[2018-09-08 08:00] VITALS: BP 112/60
== END 2018-09-08 10:34 | disposition left against medical advice (07) | DRG 871 ==
LOC: ED 17:33 → ICCU 19:05 → EDHOLD 19:05 → ICCU 19:42 → 5E 09-06 13:30
PROVIDERS: Emergency Medicine; Internal Medicine
PROC: 5A09357 Assistance with Respiratory Ventilation, Less than 24 Consecutive Hours, Continuous Positive Airway Pressure (ICD-10-PCS; principal; 2018-09-04)
PROC: 5A09357 Assistance with Respiratory Ventilation, Less than 24 Consecutive Hours, Continuous Positive Airway Pressure (ICD-10-PCS; 2018-09-05)
PROC: 5A09357 Assistance with Respiratory Ventilation, Less than 24 Consecutive Hours, Continuous Positive Airway Pressure (ICD-10-PCS; 2018-09-06)
PROC: 5A09357 Assistance with Respiratory Ventilation, Less than 24 Consecutive Hours, Continuous Positive Airway Pressure (ICD-10-PCS; 2018-09-07)
DX: A41.9 Sepsis, unspecified organism (principal); J18.9 Pneumonia, unspecified organism; I50.33 Acute on chronic diastolic (congestive) heart failure; J96.21 Acute and chronic respiratory failure with hypoxia; E43 Unspecified severe protein-calorie malnutrition; J44.1 Chronic obstructive pulmonary disease with (acute) exacerbation; J44.0 Chronic obstructive pulmonary disease with (acute) lower respiratory infection; D68.9 Coagulation defect, unspecified; J98.11 Atelectasis; D50.9 Iron deficiency anemia, unspecified; B35.1 Tinea unguium; R73.03 Prediabetes; E53.8 Deficiency of other specified B group vitamins; E55.9 Vitamin D deficiency, unspecified; R65.20 Severe sepsis without septic shock; J62.8 Pneumoconiosis due to other dust containing silica; M81.0 Age-related osteoporosis without current pathological fracture; I27.81 Cor pulmonale (chronic); I25.10 Atherosclerotic heart disease of native coronary artery without angina pectoris; E78.5 Hyperlipidemia, unspecified; J84.10 Pulmonary fibrosis, unspecified; Z99.81 Dependence on supplemental oxygen; I48.2 Chronic atrial fibrillation; K21.9 Gastro-esophageal reflux disease without esophagitis; G89.29 Other chronic pain; M54.5 Low back pain; I87.2 Venous insufficiency (chronic) (peripheral); G47.33 Obstructive sleep apnea (adult) (pediatric); B95.62 Methicillin resistant Staphylococcus aureus infection as the cause of diseases classified elsewhere; I48.0 Paroxysmal atrial fibrillation; K80.20 Calculus of gallbladder without cholecystitis without obstruction; I11.0 Hypertensive heart disease with heart failure; F41.1 Generalized anxiety disorder; E66.3 Overweight; Z53.21 Procedure and treatment not carried out due to patient leaving prior to being seen by health care provider; Z88.1 Allergy status to other antibiotic agents; Z79.899 Other long term (current) drug therapy; Z87.01 Personal history of pneumonia (recurrent); I25.2 Old myocardial infarction; Z95.5 Presence of coronary angioplasty implant and graft; Z98.1 Arthrodesis status; Z98.41 Cataract extraction status, right eye; Z87.891 Personal history of nicotine dependence; Z82.3 Family history of stroke; Z79.82 Long term (current) use of aspirin; Z79.52 Long term (current) use of systemic steroids; Z68.27 Body mass index [BMI] 27.0-27.9, adult

== ENCOUNTER 2018-09-28 06:22 | Inpatient (IN) | payer OTHER ==
[2018-09-28] VITALS (8 sets, daily range): BP systolic 87–126; BP diastolic 50–80
[~2018-09-28] VITALS: Ht 175.3 cm; Wt 74.0 kg
--- NOTE | ~2018-09-28 | PR ---
[place], [place] PROGRESS NOTE [id number] UNIT #: [id number] ROOM: [facility] DOCTOR: ALIZA SILVEIRA MD BIRTHDATE: [birth year] DOS: 10/01/2018 CARDIOLOGY PROGRESS NOTE SUBJECTIVE: The patient was seen at his bedside in the Intensive Care Unit today, 10/01/2018, for followup of his permanent atrial fibrillation and mildly elevated troponin in the setting of acute respiratory failure. I reviewed his echocardiogram which was done yesterday. Left ventricular size, wall motion and systolic function were normal and there was no evidence for wall motion abnormality. His ejection fraction was 60% and he has age appropriate diastolic dysfunction. Right ventricular size and function were surprisingly normal and he did not show any signs of pulmonary hypertension. PHYSICAL EXAMINATION: VITAL SIGNS: Today, his pulse is 64 and irregularly irregular. Blood pressure is 103/63. He is afebrile. NECK: Supple. He has no jugular distention. Carotids are full. He is tachypneic, but he just got off of the commode. LUNGS: Have markedly decreased breath sounds bilaterally with a few crackles in the bases. HEART: Has an irregularly irregular rhythm. ABDOMEN: Benign. EXTREMITIES: Showed trace edema. His legs are wrapped. IMPRESSIONS: 1. Mild elevation in troponin due to demand ischemia from hypoxemia and poor tissue perfusion. The patient shows no signs of an acute myocardial infarction. 2. Admission with acute respiratory failure due to hypoxemia. 3. Severe chronic obstructive pulmonary disease from silicosis with chronic respiratory failure. The patient is on home oxygen and chronic steroids. 4. Paroxysmal atrial fibrillation. 5. CHADS-VASc score of 5, indicating high risk for stroke if the patient is not anticoagulated. 6. History of hypertension. 7. History of coronary artery disease with 4 previous stents placed. 8. History of stroke. PLAN: I would continue stroke prophylaxis with rivaroxaban. The drug was on hold for his kyphoplasty, but I would now resume it at 20 mg daily. I would continue his other medications for heart rate control. Cardiology will sign off for now, but we will remain available to see him if needed and I thank the hospitalist physicians for asking our advice regarding his care. [place], [place] PROGRESS NOTE NAME: MARY MACIAS UNIT #: [id number] ROOM: [facility] DOCTOR: ALIZA SILVEIRA MD BIRTHDATE: [birth year] ALIZA SILVEIRA MD CM:PNTRANS [id number] 1200 ALIZA SILVEIRA MD 10/01/18 1159 interface
--- NOTE | ~2018-09-28 | CON ---
[place], [place] REPORT OF CONSULTATION NAME: MARY MACIAS [facility] #: [id number] UNIT #: [id number] ROOM: [facility] DOCTOR: ALIZA SILVEIRA MD BIRTHDATE: [birth year] DOS: 09/29/2018 CARDIOLOGY CONSULTATION REASON FOR CONSULTATION: Elevated troponin. HISTORY OF PRESENT ILLNESS: This is one of multiple admissions for the patient. 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 He does have chronic respiratory failure and cor pulmonale. He is also known to have coronary artery disease. He does note that he had catheterization with a stent many years ago. In 2017, he was being evaluated for lung transplantation at the [facility] in [place]. Part of the evaluation included catheterization, which demonstrated multivessel coronary artery disease and he received 3 additional stents. The patient has never had chest pain and to his knowledge has never had a heart attack. He does have chronic respiratory failure and is on home oxygen as well as chronic steroid therapies. He presented to the hospital on this occasion because of worsening shortness of breath. According to his , the oxygen supplementation on his CPAP had become disconnected and he was without oxygen supplementation for several hours. When EMS arrived, his oxygen saturation was about 50%. He was placed on high flow oxygen and then on CPAP with supplemental oxygen and has gradually improved. During this hospitalization, he was also noted to have a compression fracture. He has undergone a kyphoplasty today and has a dramatic improvement in his back pain. On admission, his lactate level was elevated. Serial troponin levels have shown a mild elevation in troponin. The initial troponin level was 0.057, followed by 0.180, followed by 0.173. His electrocardiograms show sinus tachycardia with an intraventricular conduction delay and left ventricular hypertrophy. No acute changes were noted. PAST MEDICAL HISTORY: Includes: 1. Severe obstructive lung disease, on home oxygen therapy. The patient is steroid dependent as well. 2. History of silicosis. 3. Chronic cor pulmonale. 4. History of diastolic heart failure. 5. Paroxysmal atrial fibrillation. 6. Chronic respiratory failure with hypoxemia. 7. Coronary artery disease with history of remote stent placement. In about 2015 or 2016, he had catheterization as part of an evaluation for lung transplantation and received an additional 3 stents. 8. Gastroesophageal reflux disease. 9. Hyperlipidemia. 10. Hypertension. 11. Sleep apnea syndrome. 12. History of cervical spine fusion. 13. History of compression fracture, status post kyphoplasty 09/29/2018. [place], [place] REPORT OF CONSULTATION NAME: MARY MACIAS UNIT #: [id number] ROOM: [facility] DOCTOR: ALIZA SILVEIRA MD BIRTHDATE: [birth year] MEDICATIONS PRIOR TO ADMISSION: Albuterol 1 puff b.i.d., DuoNeb by nebulizer q.i.d., Azelastine nasal spray b.i.d., oxygen supplementation continuously, alprazolam 0.25 mg b.i.d., aspirin 81 mg daily, calcium carbonate with vitamin D at bedtime, furosemide 40 mg b.i.d., gabapentin 600 mg at 5 p.m. daily with 1200 mg at 7 a.m. and 8 p.m., metoprolol tartrate 12.5 mg twice a day, pantoprazole 40 mg daily, prednisone 20 mg daily, rivaroxaban 20 mg daily, spironolactone 25 mg daily and Prolia 60 mg subcutaneously every 6 months. ALLERGIES: The patient lists allergies to CLINDAMYCIN. FAMILY HISTORY: The patient's mother of a stroke and his father of liver disease, both in their 60s. REVIEW OF SYSTEMS: The patient denies diplopia or loss of vision. He denies focal weakness. He does have dyspnea with minimal exertion and chronic dyspnea at rest. He denies any chest pain or palpitations. He denies lightheadedness or syncope. He denies cough or hemoptysis. He denies fevers or chills. He denies bleeding from any site and denies hemoptysis or hematemesis. He denies nausea or vomiting. He does complain bitterly about the fact that his diet is very limited in the hospital and he wants us to place him on a general diet. He denies any change in bowel or bladder habits. He denies blood in the stools or urine. He denies polyuria or polydipsia. He does have chronic swelling in his feet, but even this is pretty well controlled lately. He denies heat or cold intolerance. Remainder of the review of systems is negative except as noted above. SOCIAL HISTORY: The patient smoked briefly 55 years ago. He does not consume any alcohol. PHYSICAL EXAMINATION: GENERAL: The patient is a well-nourished white male who is awake, alert and oriented. VITAL SIGNS: Pulse is 90 and regular with occasional premature beat. Blood pressure is 124/62. He is afebrile. He weighs 74.5 kg and has a body mass index of 24.2. HEENT: Normocephalic and atraumatic. Extraocular muscles are intact. Sclerae are clear. Pupils are equal, round and react to light. The oral mucosa is moist. Tongue is midline. NECK: Supple. He has no jugular distention or hepatojugular reflux. Carotids are full. I heard no bruits. He had no neck or supraclavicular masses and no thyromegaly. LUNGS: Respirations were labored at rest, but he appears fairly comfortable at this time. He has decreased breath sounds bilaterally with crackles in the mid lung lucia bilaterally as well. There is no presacral edema or chest wall tenderness. CARDIOVASCULAR: His heart has a regular rhythm with occasional premature beats. There is a fourth heart sound, but no third heart sound or significant murmur. The PMI is not displaced and there is no precordial heave, lift or thrill. ABDOMEN: Soft and normally active without masses, organomegaly or bruits. [place], [place] REPORT OF CONSULTATION NAME: MARY MACIAS UNIT #: [id number] ROOM: [facility] DOCTOR: ALIZA SILVEIRA MD BIRTHDATE: [birth year] EXTREMITIES: Show trace edema bilaterally. Pedal pulses are diminished, but palpable bilaterally. Electrocardiogram shows sinus tachycardia and sinus rhythm with PACs. He does have an intraventricular conduction delay with a left anterior fascicular block and poor precordial R-wave progression, but no acute ST or T-wave changes. LABORATORY DATA: White count is 16,600, hemoglobin 11.0, platelet count 412,000. Sodium 142, potassium 4.1, chloride 106, CO2 of 28, BUN 16, creatinine 0.80. Lactic acid level was as high as 3.1. Troponins are mildly elevated as noted above. IMPRESSIONS: 1. Mild elevation in troponin. This almost certainly is a type 2 myocardial injury due to hypoxemia and poor tissue perfusion. The patient does not show any signs of an acute coronary event. 2. Admission with acute respiratory failure due to hypoxemia. 3. Severe chronic obstructive pulmonary disease due to silicosis with chronic respiratory failure on home oxygen and steroids. 4. Paroxysmal atrial fibrillation, currently in sinus rhythm. 5. CHADS-VASc score of 5, indicating a high risk for stroke without anticoagulation. The patient is chronically anticoagulated with a direct oral anticoagulant. 6. History of hypertension. 7. History of hyperlipidemia. 8. History of coronary artery disease with 4 previous stents placed in the past. 9. History of stroke. PLAN: At this time, I think that an echocardiogram will be obtained to look at left ventricular function, but it is most likely that this troponin elevation is due to hypoxemia and poor tissue perfusion. He is improving clinically and no other cardiac workup is planned at this time. We will continue to follow him intermittently with his other physicians and I thank the hospitalist service for asking our advice regarding his care. ALIZA SILVEIRA MD CM:CONSTR:REPORT OF CONSULTATION [id number] 09/30/18 1449 interface
--- NOTE | ~2018-09-28 | EKG ---
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
--- NOTE | ~2018-09-28 | EKG ---
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 Electronically Signed On 09-28-2018 17:02:10 PST by Tate Boone MD CM:EKGRPT:ELECTROCARDIOGRAM REPORT [id number] ZACH RICO DRAFT REPORT ZACH MONTEJO DO
--- NOTE | ~2018-09-28 | PR ---
[place], [place] PROGRESS NOTE NAME: MARY MACIAS [facility] #: [id number] UNIT #: [id number] ROOM: 501 DOCTOR: EFRAIN MASON MD,BELGICA BIRTHDATE: [birth year] DOS: 10/01/2018 PULMONARY PROGRESS NOTE SUBJECTIVE: The patient was doing well with improvement in the chest pain after the current vertebroplasty of L1-L2. Respiratory symptoms have resolved with improvement in shortness of breath progressively. Mild cough noted with small amount of sputum expectoration. There were no symptoms of fever or chills. Shortness of breath, resolving. OBJECTIVE: VITAL SIGNS: For the patient which were recorded showed the temperature noted as normal, respiratory rate 22, heart rate 70, blood pressure 120/70. Pulse oxygen saturation on 40% is 99% saturation. HEENT: Examination shows head was atraumatic. Eyes nonicterus. NECK: Supple. CARDIOVASCULAR: S1, S2 audible. LUNGS: The patient with occasional crackles, no wheezing. ABDOMEN: Soft, nontender. Bowel sounds present. EXTREMITIES: Without any new changes. IMPRESSION: 1. Resolving acute congestive heart failure, diastolic dysfunction with acute on chronic hypoxic respiratory failure. 2. Obstructive sleep apnea disorder. PLAN OF TREATMENT: Continuation of the bronchodilators. The patient has been considered for transfer to the medical floor this morning. Solu-Medrol will be discontinued. The patient will be started on usual dose of prednisone 50 mg daily, starting tomorrow. He has already received the Solu-Medrol 40 mg for today. Discharge planning. BELGICA ZUNIGA MD CM:PNTRANS [phone] BELGICA MASON MD 10/02/18 0040 interface
--- NOTE | ~2018-09-28 | EKG ---
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 Ku : 1945 Requested By: LILIANA KEBEDE Order Number: [id number] Reading MD: Tate Boone MD Measurements Intervals [place] Rate: 127 P: -41 MI: 114 QRS: -52 QRSD: 108 T: 117 QT: 329 QTc: 479 Interpretive Statements Sinus tachycardia Probable left atrial enlargement Left anterior fascicular block Abnormal R-wave progression, late transition LVH with secondary repolarization abnormality Compared to ECG 09/22/2018 13:31:31 Left ventricular hypertrophy now present Possible ischemia no longer present Electronically Signed On 09-28-2018 16:49:58 PST by Tate Boone MD CM:EKGRPT:ELECTROCARDIOGRAM REPORT [id number] LILIANA RICO DRAFT REPORT LILIANA KEBEDE DO
--- NOTE | ~2018-09-28 | PR ---
[place], [place] PROGRESS NOTE [facility] [id number] UNIT #: [id number] ROOM: 501 DOCTOR: EFRAIN MASON MD,BELGICA BIRTHDATE: [birth year] DOS: 10/02/2018 PULMONARY PROGRESS NOTE SUBJECTIVE: The patient remains comfortable at this time, transferred to the telemetry floor. Denies symptoms of chest pain. The coughing has been subsiding. Shortness of breath improving progressively. Denies symptoms of chest pain or hemoptysis at the present time. OBJECTIVE: VITAL SIGNS: Normal temperature, respiratory rate 18, heart rate 89, blood pressure 103/60. Pulse oxygen saturation on 5 liters nasal cannula 90% saturation, BiPAP 100% saturation. HEENT: No acute change. NECK: Supple. CARDIOVASCULAR: S1, S2 is audible. LUNGS: The patient was noted with scattered crackles of the lungs. ABDOMEN: Soft, nontender. Bowel sounds present. EXTREMITIES: Without acute edema. IMPRESSION: Resolving [id number] hypoxic respiratory failure, congestive heart failure, and exacerbation of bronchial asthma. PLAN OF MANAGEMENT: No changes in plan of management from Pulmonary standpoint. Discharge planning for the patient could be started. BELGICA ZUNIGA MD CM:ALLIETRANS [id number] BELGICA MASON MD 10/03/18 0030 interface
--- NOTE | ~2018-09-28 | CON ---
[place], [place] REPORT OF CONSULTATION [id number] UNIT #: [id number] ROOM: [facility] DOCTOR: EFRAIN MASON MD,BELGICA BIRTHDATE: [birth year] DOS: 09/28/2018 REASON FOR CONSULTATION: Assess the patient's current respiratory failure. HISTORY OF PRESENT ILLNESS: This is a 73-year-old white male patient who has been admitted to the hospital recently. The patient discharged home after improvement of the respiratory status significantly. The patient was discharged home on 09/25/2018, presented to the hospital this morning as he has been noted increased symptoms of shortness of breath with general weakness and fatigue. It was found the CPAP use, oxygen supplementation not turned on. He was noted severe hypoxia upon arrival in the Emergency Room. He has been admitted to the hospital, started on the BiPAP as well. The pulse oxygen saturation noted with gradual improvement at this time. The patient denies symptoms of fever or chills. He does have mild cough without any sputum expectoration. Troponin noted mildly elevated. Denies symptoms of headache or diplopia, fever or chills. REVIEW OF SYSTEMS: CONSTITUTIONAL: Significant fatigue and tiredness reported by the patient without any symptoms of fever or chills. EYES: Denies any burning, discharge or redness. THROAT: Denies sore throat, hoarseness, otalgia, postnasal drainage or epistaxis. CARDIOVASCULAR SYSTEM: Denies any angina pain. The patient was not noted any further edema of the lower extremity more than usual at home. Denies any extremity pain. GASTROINTESTINAL: Denies dysphagia, nausea, vomiting, diarrhea, abdominal pain, hematemesis, melena, or hematochezia. SKIN: Chronic bruising with skin related medications. MUSCULOSKELETAL SYMPTOMS: Denies acute joint pain, redness, or tenderness except the previous pain, which are reported at the level of L1 and the lower thorax, radiating to the front seemed to be not any worse than previously. GENITOURINARY SYMPTOMS: Dysuria, suprapubic pain, hematuria. CENTERAL NERVOUS SYSTEM: Denies any dizziness, headache, diplopia, syncopal episodes. Remaining systems were reviewed, they were noted all negative. Past medical history, surgical history, social history, work history of family history: The patient review of since my consultation completed on 09/23/2018 and noted unchanged. Refer to that document for additional information. The only new information was reviewed with L1 compression fracture as well as a T7 compression fracture noted with a subacute fracture of the L1, which was planned for vertebroplasty to be done on 09/29/2018. Current medications were noted, Aldactone, Protonix, Astelin nasal spray, gabapentin, metoprolol tartrate, Xarelto, Lasix, Solu-Medrol 40 mg ever 8 hours, levalbuterol, and DuoNeb intermittent use, doxycycline and others. DRUG ALLERGIES: THE NOTED ALLERGY TO CLINDAMYCIN. [place], [place] REPORT OF CONSULTATION NAME: MARY MACIAS UNIT #: [id number] ROOM: [facility] DOCTOR: EFRAIN MASON MD,BELGICA BIRTHDATE: [birth year] PHYSICAL EXAMINATION: GENERAL: A 73-year-old white male, ill looking. Noted awake and alert, otherwise. Height of 5 feet 9 inches, weight 264 pounds, BMI 24. VITAL SIGNS: Normal temperature, respiratory rate 29-25, heart rate of 127 noted admission, currently 106 beats per minute, blood pressure 120/90-94/60 noted on admission. The pulse oxygen saturation on BiPAP was 100% saturation. HEAD, EYES, EARS, NOSE, AND THROAT: Shows mild obesity. Head was atraumatic. Eyes nonicterus. NECK: Supple. Oral mucosa was moist. CARDIOVASCULAR SYSTEM: S1, S2 is audible. LUNGS: Noted with chronic inspiratory crackles without any wheezing. ABDOMEN: Soft, mild obesity. Bowel sounds present. No tenderness. EXTREMITIES: Noted with chronic changes with areas of bruising, mild edema of the lower extremities. VISIBLE SKIN: Scattered bruising related past use of prednisone as well. CENTRAL NERVOUS SYSTEM: Noted intact. LABORATORY DATA: Chest x-ray that was done, 1 view, in the Emergency Department noted area bilateral pulmonary fibrotic changes without any acute new superimposed abnormalities at least visible; however, the finding will be noted tough to be explained for any new process because of underlying significant pleural parenchymal deformed abnormalities related to the known history of silicosis. The PT/INR was noted 1.3 this morning of admission. Lactic acid 2.2, variably elevated for the level later on. CMP for the patient of 09/28/2018, glucose 172, BUN and creatinine was normal. Potassium 3.3. Troponin 0.057, mildly elevated. The second set troponin 0.10 and the third set 0.173 still noted mildly elevated. CBC of this morning: WBC count was 18.4, hemoglobin 12, hematocrit 39.1, platelet count were normal. IMPRESSION: 1. The patient currently admitted to the hospital with acute on chronic hypoxemic respiratory failure related to the lack of oxygen use. Lactic acidosis most likely secondary to hypoxemia would be considered as well. 2. Questionable pulmonary infection for this to be excluded. 3. History of chronic advance massive pulmonary fibrosis with the corticosteroid dependency as well. 4. History of uncomplicated severe persistent bronchial asthma as well. 5. Obstructive sleep apnea disorder. 6. Chronic anticoagulation with atrial fibrillation, tachycardia noted on this admission, which seemed to be responding to the current treatment. 7. Mild hyperkalemia related to diuretic use. PLAN OF MANAGEMENT: Continue the BiPAP has ordered empirical use antibiotic, monitor culture results of the blood. There was no coughing or sputum expectoration noted, so the sputum can be collected. Continuation of other therapy, plan of management as well. Continue current dose of Solu-Medrol with gradual reduction of the dose next 24 hours. Improvement in respiratory status. The current abnormal troponin may be related to hypoxemia as well to be assessed noted with further significant elevation with the Cardiology Services [place], [place] REPORT OF CONSULTATION NAME: MARY MACIAS UNIT #: [id number] ROOM: [facility] DOCTOR: BELGICA ORTEGA MD BIRTHDATE: [birth year] help. Resuming his home medication for the medical management previous all of the known medical conditions. Bronchodilator to be continued. Additional treatment changes will be ordered based on the progression of the illness. BELGICA ZUNIGA MD CM:CONSTR:REPORT OF CONSULTATION 1603 09/28/18 194 interface
--- NOTE | ~2018-09-28 | PR ---
[place], [place] PROGRESS NOTE NAME: MARY MACIAS [facility] #: [id number] UNIT #: [id number] ROOM: [facility] DOCTOR: ALIZA SILVEIRA MD BIRTHDATE: [birth year] DOS: 09/30/2018 CARDIOLOGY FOLLOWUP NOTE SUBJECTIVE: The patient was seen at his bedside in the intensive care unit today 09/30/2018 for followup of his severe COPD and mildly elevated troponin. He is a 73-year-old man with end-stage lung disease, who presented to the hospital with acute hypoxemia. His equipment had malfunctioned at home and he was not getting his oxygen supplementation as required. When he came into the hospital, he did have elevated lactic acid levels and a mild elevation in troponin. He did not show any signs of an acute coronary event. The elevation was most consistent with demand ischemia. Since he has been in the hospital, he has had a kyphoplasty and his back pains have improved. He is currently sitting up at the side of the bed, eating lunch. PHYSICAL EXAMINATION: VITAL SIGNS: Today, his pulse is 84 with frequent premature beats. Blood pressure is 110/68. He is afebrile. NECK: Supple. He has no jugular distention or hepatojugular reflux. Carotids are full. LUNGS: Respirations are slightly labored at rest. He has decreased breath sounds at the bases with a few scattered crackles. He has no presacral edema. HEART: Has a regular rhythm with frequent premature beats. Heart tones are distant. ABDOMEN: Benign. EXTREMITIES: Showed trace edema. IMPRESSION: 1. Mild elevation in troponin due to demand ischemia from hypoxemia and poor tissue perfusion. 2. Admission with acute respiratory failure due to hypoxemia. 3. Severe chronic obstructive pulmonary disease from silicosis with chronic respiratory failure on home oxygen and steroids. 4. Paroxysmal atrial fibrillation. The patient is currently in sinus rhythm with frequent PACs. 5. CHADS-VASc score of 5, indicating a high risk for stroke if the patient is not anticoagulated. 6. History of hypertension. 7. History of coronary artery disease with 4 previous stents placed. 8. History of stroke. PLAN: We will review the echocardiogram when available. No other cardiac workup is planned at this time. We will continue to follow him intermittently. I thank the hospitalist physicians for asking our advice regarding his care. [place], [place] PROGRESS NOTE NAME: MARY MACIAS UNIT #: [id number] ROOM: [facility] DOCTOR: ALIZA SILVEIRA MD BIRTHDATE: [birth year] ALIZA SILVEIRA MD CM:PNCHAD [id number] LAIZA SILVEIRA MD 09/30/18 1441 interface
--- NOTE | ~2018-09-28 | PR ---
[place], [place] PROGRESS NOTE NAME: MARY MACIAS [facility] #: [id number] UNIT #: [id number] ROOM: [facility] DOCTOR: EFRAIN MASON MD,BELGICA BIRTHDATE: [birth year] DOS: 09/29/2018 SUBJECTIVE: The patient has been noted better this morning, reduction in symptoms of shortness of breath. The chest is still noted intermittently that remains unchanged. Denies symptoms of fever or chills. Denies symptoms of hemoptysis. Mild nonproductive cough reported. Denies symptoms of nausea, vomiting, diarrhea, abdominal pain, hematemesis, melena, or hematochezia. Use the BiPAP with significant amount of ____ most of the time. This morning using oxygen supplementation with the nasal cannula. Remaining systems reviewed were noted all negative. PHYSICAL EXAMINATION: GENERAL: The patient is currently comfortably lying in the bed without any acute distress this morning of assessment, using oxygen supplementation with nasal cannula. VITAL SIGNS: Normal temperature, respiratory rate 20, heart rate 72, blood pressure 108/70. The pulse oxygen saturation on 4 liter nasal cannula 94% saturation at rest. HEENT: No acute change. Head was atraumatic. Eyes, nonicterus. NECK: Supple. CARDIOVASCULAR: S1, S2 audible. LUNGS: Chronic inspiratory crackles, no wheezing. ABDOMEN: Soft, nontender. Bowel sounds present. EXTREMITIES: Without any acute edema. LABORATORY DATA: Today's CMP today noted normal BUN and creatinine. Albumin of 2.3, phosphate decreased at 2.1. PT/PTT were noted ____ INR 1.2. CBC this morning, WBC count 16.6, hemoglobin 11, hematocrit 36.4, and platelet count 412,000. IMPRESSION: 1. The patient who has been noted currently stable, resolving congestive heart failure with stable respiratory status with [id number] hypoxic respiratory failure. 2. The patient with compression fracture of the spine was also noted. CT scan of the chest was done yesterday was noted without any acute changes, possibly superimposed congestive heart failure cannot be completely excluded. PLAN OF MANAGEMENT: Other supportive therapy, plan of management at this time to be continued as in progress without any changes, usual care, supportive treatment, and proceed with the vertebroplasty of L1 vertebral bone by the Interventional Radiology services. [place], [place] PROGRESS NOTE NAME: MARY MACIAS UNIT #: [id number] ROOM: [facility] DOCTOR: BELGICA ORTEGA MD BIRTHDATE: [birth year] BELGICA ZUNIGA MD CM:OLIVIA [id number] BELGICA MASON MD 09/30/18 0016 interface
--- NOTE | ~2018-09-28 | PR ---
[place], [place] PROGRESS NOTE NAME: MARY MACIAS [facility] #: [id number] UNIT #: [id number] ROOM: [facility] [place] DOCTOR: EFRAIN MASON MD,BELGICA BIRTHDATE: [birth year] DOS: 09/30/2018 SUBJECTIVE: The patient underwent a vertebroplasty of L1 vertebral bone yesterday. The patient by Interventional Radiology services. Shortness of breath continued to resolve progressively. Denies symptoms of chest pain, fever or chills. Continue diuretics and bronchodilators. OBJECTIVE: VITAL SIGNS: For the patient with temperature recorded normal temperature, respiratory rate 13, heart rate 75, blood pressure 96/50, pulse oxygen saturation on 4 liters nasal cannula 96% saturation. HEENT: No acute change. NECK: Supple. CARDIOVASCULAR: S1, S2 audible. LUNGS: Without any wheeze or crackles this morning. ABDOMEN: Soft, nontender, bowel sounds present. EXTREMITIES: No new changes. IMPRESSION: The patient with resolving acute exacerbation of chronic obstructive pulmonary disease and acute congestive heart failure, diastolic dysfunction, mild elevation in troponins. The congestive heart failure noted edema, which was also visible on the CT scan of the chest. PLAN OF MANAGEMENT: Continuation of diuretics, bronchodilators, oxygen supplementation, reduction of the Solu-Medrol. The patient gradually as well. BELGICA ZUNIGA MD CM:PNTRANS [id number] BELGICA MASON MD 09/30/18 1356 interface
[2018-09-28 06:54] LABS: HEMATOCRIT 39.1 % (42.0-52.0); MEAN CELL VOLUME 77.3 fl (80.0-94.0); MEAN CORPUSCULAR HGB 23.7 pg (27.0-31.0); MEAN CORPUSCULAR HGB CONC 30.7 g/dl (33.0-37.0); MEAN PLATELET VOLUME 9.8 fl (9.6-12.3); PLATELET COUNT AUTOMATED 393 10*3/uL (130-400); RED BLOOD COUNT 5.06 10*6/uL (4.50-5.90); RED CELL DISTRI WIDTH 19.9 % (0-14.5); WHITE BLOOD COUNT 18.4 10*3/uL (4.8-10.8)
[2018-09-28 07:02] LABS: INTERNATIONAL NORM RATIO 1.3 (2.0-3.5)
[2018-09-28 07:11] LABS: ALBUMIN 2.4 gm/dl (3.1-4.5); ALKALINE PHOSPHATASE 163 U/L (45-117); BUN 14 mg/dl (7-24); CHLORIDE 105 mmol/L (98-107); POTASSIUM 3.3 mmol/L (3.5-5.1); SGPT/ALT 28 U/L (12-78); SODIUM 141 mmol/L (136-145)
[2018-09-28 07:12] LABS: SGOT/AST 45 IU/L (3-35)
[2018-09-28 07:16] LABS: BURR CELLS FEW; MICROCYTOSIS SLIGHT; PLATELET SUFFICIENCY NORMAL (NORMAL); TOTAL CELLS COUNTED 100 #CELLS
[2018-09-28 07:23] LABS: TROPONIN I 0.057 ng/ml (<0.045)
[2018-09-28 09:02] LABS: ABG BASE EXCESS 0.6 mmol/L (-2.0-2.0); ABG HCO3 24.4 mmol/l (22-26); ABG O2 SATURATION 96.4 % (95-97); ARTERIAL BLOOD GAS PCO2 37.5 mmHg (35-45); ARTERIAL BLOOD GAS PH 7.428 (7.35-7.45); ARTERIAL BLOOD GAS PO2 80.9 mmHg (80-90)
[2018-09-28] MEDS ORDERED: NEURONTIN600 MG PO (09:59)
[2018-09-28] MEDS ORDERED: AZELASTINE137 MCG/0. NAS (10:48)
[2018-09-29] VITALS (15 sets, daily range): BP systolic 98–148; BP diastolic 52–96
[2018-09-29 05:51] LABS: ACT PARTIAL THROMBO TIME 22.8 SECONDS (20.8-31.5); INTERNATIONAL NORM RATIO 1.2 (2.0-3.5)
[2018-09-29 05:56] LABS: ALBUMIN 2.3 gm/dl (3.1-4.5); ALKALINE PHOSPHATASE 152 U/L (45-117); BUN 16 mg/dl (7-24); CHLORIDE 106 mmol/L (98-107); PHOSPHOROUS 2.1 mg/dL (2.5-4.9); POTASSIUM 4.1 mmol/L (3.5-5.1); SGOT/AST 18 IU/L (3-35); SGPT/ALT 22 U/L (12-78); SODIUM 142 mmol/L (136-145)
[2018-09-29 06:01] LABS: BASO % 0.1 % (0.0-1.0); HEMATOCRIT 36.4 % (42.0-52.0); LYMPH # 0.9 10*3/uL (1.3-4.4); LYMPH % 5.1 % (27.0-41.0); MEAN CELL VOLUME 77.1 fl (80.0-94.0); MEAN CORPUSCULAR HGB 23.3 pg (27.0-31.0); MEAN CORPUSCULAR HGB CONC 30.2 g/dl (33.0-37.0); MEAN PLATELET VOLUME 9.9 fl (9.6-12.3); MONO # 0.8 10*3/uL (0.1-1.0); MONO % 4.9 % (3.0-9.0); NEUT # 14.7 10*3/uL (2.3-7.9); PLATELET COUNT AUTOMATED 412 10*3/uL (130-400); RED BLOOD COUNT 4.72 10*6/uL (4.50-5.90); RED CELL DISTRI WIDTH 19.7 % (0-14.5); WHITE BLOOD COUNT 16.6 10*3/uL (4.8-10.8)
[2018-09-29 09:10] LABS: VITAMIN D, 25-HYDROXY 28.7 ng/mL (30-100)
[2018-09-30] VITALS: BP 86/60
[2018-09-30 04:00] VITALS: BP 96/50
[2018-09-30 06:00] LABS: BASO % 0.1 % (0.0-1.0); EOS % 0.1 % (1.0-4.0); HEMATOCRIT 36.3 % (42.0-52.0); HEMOGLOBIN 10.9 g/dl (14.0-18.0); LYMPH # 0.7 10*3/uL (1.3-4.4); MEAN CELL VOLUME 77.1 fl (80.0-94.0); MEAN CORPUSCULAR HGB 23.1 pg (27.0-31.0); MEAN PLATELET VOLUME 9.8 fl (9.6-12.3); MONO # 0.7 10*3/uL (0.1-1.0); MONO % 4.8 % (3.0-9.0); NEUT # 12.5 10*3/uL (2.3-7.9); PLATELET COUNT AUTOMATED 422 10*3/uL (130-400); RED BLOOD COUNT 4.71 10*6/uL (4.50-5.90); RED CELL DISTRI WIDTH 19.7 % (0-14.5); WHITE BLOOD COUNT 14.1 10*3/uL (4.8-10.8)
[2018-09-30 06:01] LABS: BUN 18 mg/dl (7-24); CHLORIDE 102 mmol/L (98-107); CREATININE 0.82 mg/dL (0.70-1.30); SODIUM 136 mmol/L (136-145)
[2018-09-30 12:00] VITALS: BP 110/68
[2018-09-30 16:00] VITALS: BP 109/75
[2018-09-30 20:00] VITALS: BP 126/78
[2018-10-01] VITALS: BP 131/78
[2018-10-01 04:00] VITALS: BP 103/63
[2018-10-01 05:59] LABS: BASO % 0.1 % (0.0-1.0); EOS % 0.2 % (1.0-4.0); HEMATOCRIT 34.9 % (42.0-52.0); HEMOGLOBIN 10.4 g/dl (14.0-18.0); LYMPH # 0.9 10*3/uL (1.3-4.4); LYMPH % 7.5 % (27.0-41.0); MEAN CELL VOLUME 77.4 fl (80.0-94.0); MEAN CORPUSCULAR HGB 23.1 pg (27.0-31.0); MEAN CORPUSCULAR HGB CONC 29.8 g/dl (33.0-37.0); MEAN PLATELET VOLUME 9.9 fl (9.6-12.3); NEUT # 10.2 10*3/uL (2.3-7.9); NEUT % 82.8 % (47.0-73.0); PLATELET COUNT AUTOMATED 395 10*3/uL (130-400); RED BLOOD COUNT 4.51 10*6/uL (4.50-5.90); RED CELL DISTRI WIDTH 19.6 % (0-14.5); WHITE BLOOD COUNT 12.3 10*3/uL (4.8-10.8)
[2018-10-01 06:16] LABS: BUN 17 mg/dl (7-24); CHLORIDE 102 mmol/L (98-107); CREATININE 0.69 mg/dL (0.70-1.30); POTASSIUM 3.6 mmol/L (3.5-5.1); SODIUM 135 mmol/L (136-145)
[2018-10-01 08:00] VITALS: BP 120/70
[2018-10-01 12:00] VITALS: BP 100/50
[2018-10-01 16:00] VITALS: BP 101/61
[2018-10-01 20:00] VITALS: BP 100/68; BP 112/64
[2018-10-02] VITALS: BP 127/76
[2018-10-02 06:08] LABS: ADENOVIRUS Negative (Negative); INFLUENZA A Negative (Negative); INFLUENZA B Negative (Negative); METAPNEUMOVIRUS Negative (Negative); PARAINFLUENZA 1 Negative (Negative); PARAINFLUENZA 2 Negative (Negative); PARAINFLUENZA 3 Negative (Negative); RHINOVIRUS Negative (Negative); RSV A Negative (Negative); RSV B Negative (Negative)
[2018-10-02 06:33] LABS: HEMATOCRIT 36.8 % (42.0-52.0); HEMOGLOBIN 10.8 g/dl (14.0-18.0); MEAN CELL VOLUME 77.3 fl (80.0-94.0); MEAN CORPUSCULAR HGB 22.7 pg (27.0-31.0); MEAN CORPUSCULAR HGB CONC 29.3 g/dl (33.0-37.0); MEAN PLATELET VOLUME 10.2 fl (9.6-12.3); PLATELET COUNT AUTOMATED 381 10*3/uL (130-400); RED BLOOD COUNT 4.76 10*6/uL (4.50-5.90); RED CELL DISTRI WIDTH 19.9 % (0-14.5)
[2018-10-02 06:56] LABS: TOTAL CELLS COUNTED 100 #CELLS
[2018-10-02 06:57] LABS: BURR CELLS FEW; MICROCYTOSIS SLIGHT; PLATELET SUFFICIENCY NORMAL (NORMAL); SCHISTOCYTES FEW
[2018-10-02 07:05] LABS: BUN 12 mg/dl (7-24); CHLORIDE 105 mmol/L (98-107); POTASSIUM 3.5 mmol/L (3.5-5.1); SODIUM 138 mmol/L (136-145)
[2018-10-02 08:00] VITALS: BP 103/60
[2018-10-02 12:00] VITALS: BP 104/68
[2018-10-02] MEDS ORDERED: PREDNISONE10 MG PO (12:17)
[2018-10-02] MEDS ORDERED: VOLTAREN100 GM T (12:17)
[2018-10-02] MEDS ORDERED: VIBRAMYCIN100 MG PO (12:17)
== END 2018-10-02 16:30 | disposition home health service (06) | DRG 853 ==
LOC: ED 06:22 → EDHOLD 07:27 → ICCU 07:27 → EDHOLD 07:36 → ICCU 07:53 → 5E 10-01 12:00
PROVIDERS: Emergency Medicine; Internal Medicine; Student in an Organized Health Care Education/Training Program
PROC: 5A09357 Assistance with Respiratory Ventilation, Less than 24 Consecutive Hours, Continuous Positive Airway Pressure (ICD-10-PCS; principal; 2018-09-28)
PROC: 0QU03JZ Supplement Lumbar Vertebra with Synthetic Substitute, Percutaneous Approach (ICD-10-PCS; 2018-09-29)
PROC: 5A09357 Assistance with Respiratory Ventilation, Less than 24 Consecutive Hours, Continuous Positive Airway Pressure (ICD-10-PCS; 2018-09-30)
PROC: 5A09357 Assistance with Respiratory Ventilation, Less than 24 Consecutive Hours, Continuous Positive Airway Pressure (ICD-10-PCS; 2018-10-02)
DX: A41.9 Sepsis, unspecified organism (principal); J96.21 Acute and chronic respiratory failure with hypoxia; I50.33 Acute on chronic diastolic (congestive) heart failure; J18.9 Pneumonia, unspecified organism; E43 Unspecified severe protein-calorie malnutrition; E87.2 Acidosis; J45.901 Unspecified asthma with (acute) exacerbation; R65.20 Severe sepsis without septic shock; E87.6 Hypokalemia; M19.019 Primary osteoarthritis, unspecified shoulder; M25.512 Pain in left shoulder; G89.29 Other chronic pain; E83.39 Other disorders of phosphorus metabolism; D50.9 Iron deficiency anemia, unspecified; E53.8 Deficiency of other specified B group vitamins; R73.03 Prediabetes; G47.30 Sleep apnea, unspecified; M54.9 Dorsalgia, unspecified; K21.9 Gastro-esophageal reflux disease without esophagitis; J84.10 Pulmonary fibrosis, unspecified; I48.91 Unspecified atrial fibrillation; M81.0 Age-related osteoporosis without current pathological fracture; E87.5 Hyperkalemia; I48.0 Paroxysmal atrial fibrillation; E78.5 Hyperlipidemia, unspecified; I48.2 Chronic atrial fibrillation; F41.1 Generalized anxiety disorder; S32.010S Wedge compression fracture of first lumbar vertebra, sequela; Z99.81 Dependence on supplemental oxygen; Z95.5 Presence of coronary angioplasty implant and graft; Z88.1 Allergy status to other antibiotic agents; Z82.3 Family history of stroke; Z86.73 Personal history of transient ischemic attack (TIA), and cerebral infarction without residual deficits; Z79.82 Long term (current) use of aspirin; Z79.51 Long term (current) use of inhaled steroids; Z79.899 Other long term (current) drug therapy; Z68.24 Body mass index [BMI] 24.0-24.9, adult